=== PATIENT | female | born 1930 | race Caucasian/White ===

== ENCOUNTER 2017-08-28 09:22 | Emergency (ER) | payer OTHER ==
[~2017-08-28] VITALS: Ht 162.6 cm; Wt 84.6 kg
[~2017-08-28 09:22] MED LIST: ACET-1138 PO; ASPEC81 PO; LEVO25TA5 PO; LSN/10125 PO; METO25TA3 PO; MULT-506 PO; OMEP20TA14 PO; OXYSR10 PO; RXC5 PO
[2017-08-28 09:26] VITALS: TEMP 36.9; Ht 162.6 cm; Wt 84.6 kg
[2017-08-28] MEDS ORDERED: MoRPHine SULFATE 2 MG/ML CARP IV STA (09:39)
[2017-08-28 10:17] LABS: BASO % 0.5 %; BASO ABS # 0.04 K/uL (0-0.2); COMPLETE YES; EOS % 1.5 %; HEMATOCRIT 37.1 % (37-47); IG% 0.1 %; LYMPH % 19.8 %; LYMPH ABS # 1.48 K/uL (1.2-3.4); MEAN CELL VOLUME 87.7 fL (80-100); MEAN CORPUSCULAR HEMOGLOBIN 30.7 pg (25-34); MEAN PLATELET VOLUME 11.4 fL (7.4-10.4); MONO % 4.3 %; NEUT % 73.8 %; PLATELET COUNT 183 K/uL (130-400); RED BLOOD COUNT 4.23 M/uL (4.2-5.4); WHITE BLOOD COUNT 7.48 K/uL (4.8-10.8)
[2017-08-28 10:27] LABS: PROTHROMBIN TIME (PATIENT) 10.3 SECONDS (9.0-12.0)
[2017-08-28 10:35] LABS: BUN/CREATININE RATIO 23.8 (10-20); CREATININE 1.18 mg/dl (0.60-1.20); POTASSIUM 3.9 mmol/L (3.5-5.1)
[2017-08-28 10:46] LABS: MANUAL MICROSCOPIC REQUIRED? YES; URINE APPEARANCE CLOUDY (CLEAR); URINE BILIRUBIN NEG (NEG); URINE COLOR YELLOW; URINE NITRITE POS (NEG); URINE PH 8.5 (4.5-7.5); UROBILINOGEN NEG (NEG)
[2017-08-28 10:47] LABS: REVIEW REQ? NO; SULFASALICYLIC ACID POS (NEG)
[2017-08-28 10:49] LABS: URINE BACTERIA 2+ (NEG); URINE RBC 0-4 /hpf (0-4)
--- NOTE | 2017-08-28 10:51 | DIAGNOSTIC IMAGING REPORT ---
L-SPINE MIN 4 VIEWS ROUTINE HISTORY: Trauma eval for fx COMPARISON: None. FINDINGS: There is no fracture. Moderate scoliosis. Considerable degenerative disc change throughout the entire lumbar region. IMPRESSION: Severe degenerative change. Scoliosis. No acute compression deformity. The above report was generated using voice recognition software. It may contain grammatical, syntax or spelling errors. Electronically signed by: Berry Kinney M.D. 08/28/2017 10:49 AM Dictated Date/Time: 08/28/2017 10:48 AM
[2017-08-28] MEDS ORDERED: SULFAMETHOXAZOLE/TRIMETHOPRIM DS 800/160MG TAB PO STA (10:53)
--- NOTE | 2017-08-28 10:53 | DIAGNOSTIC IMAGING REPORT ---
PELVIS 1 OR 2 VIEW ROUTINE CLINICAL HISTORY: eval for fx trauma COMPARISON: None. DISCUSSION: Moderate generalized degenerative change throughout the pelvis and hips. No acute bony abnormality. No evidence for acetabular protrusion. There is no evidence for soft tissue swelling. IMPRESSION: Degenerative change. No acute abnormality. The above report was generated using voice recognition software. It may contain grammatical, syntax or spelling errors. Electronically signed by: Berry Kinney M.D. 08/28/2017 10:51 AM Dictated Date/Time: 08/28/2017 10:49 AM
[2017-08-28] MEDS ORDERED: ONDANSETRON INJ 2 MG/ML 2 ML VIAL IV STA (10:58)
[2017-08-28 11:06] VITALS: PULSE 65; O2SAT 98
[2017-08-28 11:17] VITALS: BP 139/56
[2017-08-28] MEDS ORDERED: SULF800T23 PO (11:37)
[2017-08-28] MEDS ORDERED: OXYC1TAB3 PO (11:37)
--- NOTE | 2017-08-28 16:59 | EMERGENCY ROOM VISIT NOTE ---
History Report prepared by Buddy: Willy Russ Under the Supervision of: Dr. Harish Patel M.D. First contact with patient: 09:33 Chief Complaint: LEG PAIN,LEG INJURY Stated Complaint: LEG PAIN History of Present Illness The patient is an 86 year old female who presents to the Emergency Room with complaints of bilateral hip pain that began 1 week ago. She rates her pain an 8/ 10 in severity. She has a past medical history of arthritis. For the past week, the patient has been having this bilateral hip pain with lower back pain and bilateral buttocks pain. Intermittently, she will experience shooting pain down both of her legs into her calves. This morning, she had another episode of this shooting sensation. However, she was unable to walk after this secondary to her pain, so she called the ambulance. She denies any history of a diagnosed problem with her discs. She denies any fevers, chest pain, shortness of breath, vomiting, abdominal pain, weakness, numbness, or incontinence with her bladder or bowel. She usually takes Tramadol for her pain which tends to help, however she did not take any today. Source of History: patient Onset: 1 week ago Position: other (bilateral hip) Symptom Intensity: 8/10 Quality: ache Timing: constant Associated Symptoms: No fevers, No chest pain, No SOB, No vomiting, No abdominal pain, No urinary symptoms, No weakness, No numbness Note: She is unable to walk secondary to her pain. She is having bilateral buttocks pain as well. Review of Systems See HPI for pertinent positives & negatives. A total of 10 systems reviewed and were otherwise negative. Past Medical & Surgical Medical Problems: (1) CKD (chronic kidney disease) stage 3, GFR 30-59 ml/min (2) Diabetes mellitus type II, controlled (3) Dyslipidemia (4) GERD (gastroesophageal reflux disease) (5) History of pacemaker (6) HTN (hypertension) (7) Hypothyroidism (8) Moderate aortic stenosis (9) Right knee DJD (10) Third degree AV block Surgical Problems: (1) H/O cataract removal with insertion of prosthetic lens (2) History of appendectomy (3) Hx of total knee arthroplasty Family History Omitted secondary to the patient's age. Social History Smoking Status: Former Smoker Smokeless Tobacco Use: No Drug Use: none Occupation Status: retired Current/Historical Medications Scheduled Acetaminophen (Tylenol Extra Strength), 1,000 MG PO Q8H Aspirin (Aspirin EC Low Dose), 81 MG PO BID Hctz/Lisinopril (Lisinopril/Hctz 10/12.5 Mg), 1 TAB PO PM Levothyroxine Sodium (Levothyroxine Sodium), 25 MCG PO QAM Metoprolol Succinate (Toprol Xl), 25 MG PO HS Multivitamin (Multivitamin), 1 TAB PO QAM Omeprazole Magnesium (Prilosec Otc), 20 MG PO DAILY Sulfa/Trimethoprim (Bactrim Ds 800MG/160MG), 1 TAB PO BID Scheduled PRN Oxycodone Ir (Roxicodone Ir), 2.5 MG PO Q4H PRN for Pain Allergies Coded Allergies: No Known Allergies (Verified , 08/28/17) Physical Exam Vital Signs Date Time Temp Pulse Resp B/P (MAP) Pulse Ox O2 Delivery O2 Flow Rate FiO2 08/28/17 11:17 139/56 08/28/17 11:06 65 18 104/45 98 Room Air 08/28/17 09:26 36.9 66 18 130/81 93 Room Air Physical Exam Constitutional: Vital signs reviewed. Eyes: Pupils are equal round reactive to light. Conjunctiva are noninjected. ENT: Pharynx is clear without erythema or exudate. Mucous membranes are moist. Neck supple without meningeal signs. Respiratory: Clear to auscultation bilaterally. Breath sounds are equal bilaterally. Cardiovascular: Regular rate and rhythm. No rubs or gallops. GI: Soft, nondistended and nontender. Bowel sounds are present. Musculoskeletal: No peripheral edema. No lower extremity tenderness. Minimal bilateral hip tenderness. No redness, swelling, or increased warmth. Positive straight leg raise to the right leg at 30 degrees. Integumentary: No cyanosis. Neurological: The patient is awake and alert. No focal deficits. Normal motor and sensation to the bilateral lower extremities. Psychiatric: Normal affect. Medical Decision & Procedures ER Provider Diagnostic Interpretation: Radiology results as stated below per my review and the radiologist's interpretation: PELVIS 1 OR 2 VIEW ROUTINE CLINICAL HISTORY: eval for fx trauma COMPARISON: None. DISCUSSION: Moderate generalized degenerative change throughout the pelvis and hips. No acute bony abnormality. No evidence for acetabular protrusion. There is no evidence for soft tissue swelling. IMPRESSION: Degenerative change. No acute abnormality. The above report was generated using voice recognition software. It may contain grammatical, syntax or spelling errors. Electronically signed by: Berry Kinney M.D. 08/28/2017 10:51 AM Dictated Date/Time: 08/28/2017 10:49 AM L-SPINE MIN 4 VIEWS ROUTINE HISTORY: Trauma eval for fx COMPARISON: None. FINDINGS: There is no fracture. Moderate scoliosis. Considerable degenerative disc change throughout the entire lumbar region. IMPRESSION: Severe degenerative change. Scoliosis. No acute compression deformity. The above report was generated using voice recognition software. It may contain grammatical, syntax or spelling errors. Electronically signed by: Berry Kinney M.D. 08/28/2017 10:49 AM Dictated Date/Time: 08/28/2017 10:48 AM Laboratory Results 08/28/17 10:05 Red Blood Count 4.23, Mean Corpuscular Volume 87.7, Mean Corpuscular Hemoglobin 30.7, Mean Corpuscular Hemoglobin Concent 35.0, Mean Platelet Volume 11.4, Neutrophils (%) (Auto) 73.8, Lymphocytes (%) (Auto) 19.8, Monocytes (%) (Auto) 4.3, Eosinophils (%) (Auto) 1.5, Basophils (%) (Auto) 0.5, Neutrophils # (Auto) 5.52, Lymphocytes # (Auto) 1.48, Monocytes # (Auto) 0.32, Eosinophils # (Auto) 0.11, Basophils # (Auto) 0.04 08/28/17 10:05 Test 08/28/17 10:05 08/28/17 10:30 White Blood Count 7.48 K/uL (4.8-10.8) Red Blood Count 4.23 M/uL (4.2-5.4) Hemoglobin 13.0 g/dL (12.0-16.0) Hematocrit 37.1 % (37-47) Mean Corpuscular Volume 87.7 fL (80-100) Mean Corpuscular Hemoglobin 30.7 pg (25-34) Mean Corpuscular Hemoglobin Concent 35.0 g/dl (32-36) Platelet Count 183 K/uL (130-400) Mean Platelet Volume 11.4 fL (7.4-10.4) Neutrophils (%) (Auto) 73.8 % Lymphocytes (%) (Auto) 19.8 % Monocytes (%) (Auto) 4.3 % Eosinophils (%) (Auto) 1.5 % Basophils (%) (Auto) 0.5 % Neutrophils # (Auto) 5.52 K/uL (1.4-6.5) Lymphocytes # (Auto) 1.48 K/uL (1.2-3.4) Monocytes # (Auto) 0.32 K/uL (0.11-0.59) Eosinophils # (Auto) 0.11 K/uL (0-0.5) Basophils # (Auto) 0.04 K/uL (0-0.2) RDW Standard Deviation 41.8 fL (36.4-46.3) RDW Coefficient of Variation 13.0 % (11.5-14.5) Immature Granulocyte % (Auto) 0.1 % Immature Granulocyte # (Auto) 0.01 K/uL (0.00-0.02) Prothrombin Time 10.3 SECONDS (9.0-12.0) Prothromb Time International Ratio 1.0 (0.9-1.1) Activated Partial Thromboplast Time 25.3 SECONDS (21.0-31.0) Partial Thromboplastin Ratio 1.0 Anion Gap 6.0 mmol/L (3-11) Est Creatinine Clear Calc Drug Dose 37.4 ml/min Estimated GFR () 49.0 Estimated GFR (Non- 42.3 BUN/Creatinine Ratio 23.8 (10-20) Calcium Level 9.0 mg/dl (8.5-10.1) Urine Color YELLOW Urine Appearance CLOUDY (CLEAR) Urine pH 8.5 (4.5-7.5) Urine Specific [place] 1.010 (1.000-1.030) Urine Protein 1+ (NEG) Urine Glucose (UA) NEG (NEG) Urine Ketones NEG (NEG) Urine Occult Blood TRACE (NEG) Urine Nitrite POS (NEG) Urine Bilirubin NEG (NEG) Urine Urobilinogen NEG (NEG) Urine Leukocyte Esterase LARGE (NEG) Urine RBC 0-4 /hpf (0-4) Urine WBC 10-30 /hpf (0-5) Urine Epithelial Cells 0-5 /lpf (0-5) Urine Other Crystals TALC (NONE PRSENT) Urine Bacteria 2+ (NEG) Laboratory results as reviewed by me. Medications Administered Medications (Trade) Dose Ordered Sig/Indu Route Start Time Stop Time Status Last Admin Dose Admin Morphine Sulfate (MoRPHine SULFATE INJ) 2 mg NOW STAT IV 08/28/17 09:39 08/28/17 09:41 DC 08/28/17 10:10 2 MG Trimethoprim/ Sulfamethoxazole (Septra Ds 800/ 160MG Tab) 1 tab NOW STAT PO 08/28/17 10:53 08/28/17 10:54 DC 08/28/17 11:04 1 TAB Ondansetron HCl (Zofran Inj) 4 mg NOW STAT IV 08/28/17 10:58 08/28/17 10:59 DC 08/28/17 11:04 4 MG ED Course 0933: The patient was evaluated in room A2. A complete history and physical exam was performed. 0939: Ordered Morphine Sulfate 2 mg IV 1053: Ordered Trimethoprim/Sulfamethoxazole 1 tab PO 1057: I reassessed the patient at this time. We discussed her test results. She is feeling better, however she is now nauseated. 1058: Ordered Zofran Inj 4 mg IV 1124: The patient is able to ambulate without difficulty and is feeling much better. I discussed the rest of her results with her and return instructions. She will be taking half of an Oxycodone instead of her Tramadol, which I told her to stop taking. We discussed the risks of taking this medication as well. I discussed with the ER pharmacist the patient's Bactrim and Brian Inhibitors. She has normal renal function and a normal potassium level. The pharmacist states that she is not at risk for hyperkalemia. 1230: I spoke with the patient's daughter at this time. She confirmed that she did not tell the tech that the patient was on Oxycodone/OxyContin. 1235: Upon reevaluation, the patient appeared to have improvement of her symptoms. I discussed tonight's findings with her. She verbalized agreement of the treatment plan. She was discharged home. Medical Decision This is an 86-year-old female who presents with bilateral hip and buttock pain rating down her legs. Differential diagnosis includes lumbar disc disease, radiculopathy, spinal stenosis, compression fracture, pelvic fracture, strain. I did perform a limited focused review of portions of the patient's old chart on the electronic medical record. The patient has had no recent pertinent visits to this hospital. I did evaluate the patient as noted above. Patient is presenting with lower back pain radiating into her hips and buttocks and down to her calves. She does not have any swelling to suggest a DVT. Her symptoms are bilateral. She does have a positive straight leg raise on the right side which she states is worse than the left. Her symptoms seem most consistent with radiculopathy. IV access was established. I did treat the patient with 2 mg of morphine IV and Zofran IV. I did order and personally review the patient's x-rays as described above. She does have significant degenerative changes. No fractures are noted. I did order and review the patient's blood work as noted in the electronic medical record. Kidney function and potassium are normal. Her white blood cell count is not elevated. I did order a urinalysis which does show signs of infection. She was treated with Bactrim. I did reassess patient. I did discuss the test results with the patient and her daughter. She is feeling better at this time. She does feel well enough for discharge home. She was advised follow up with her doctor for further evaluation and referral for possible physical therapy. She was told to stop her tramadol and given a prescription for oxycodone. I did review side effects and addiction potential of oxycodone with her. She was also given a prescription for Bactrim for her UTI. She was given return instructions as outlined below. [place] Drug Monitoring Program Search Results: patient reviewed within database, no issues identified Drug Monitoring Findings: No other prescriptions except for her Tramadol from June of this year. Medication Reconcilliation Current Medication List: was personally reviewed by me Blood Pressure Screening Patient's blood pressure: Elevated blood pressure Blood pressure disposition: Referred to PCP Impression Primary Impression: Lumbar radiculopathy Additional Impression: UTI (urinary tract infection) Scribe Attestation The scribe's documentation has been prepared under my direct and personally reviewed by me in its entirety. I confirm that the note above accurately reflects all work, treatment, procedures, and medical decision making performed by me. Departure Information Dispostion Home / Self-Care Prescriptions Oxycodone Ir (Roxicodone Ir) 5 Mg Tab 2.5 MG PO Q4H Y for Pain, #10 TAB Prov: Harish Patel M.D. 08/28/17 Sulfa/Trimethoprim (Bactrim Ds 800MG/160MG) Tab 1 TAB PO BID, #14 TAB Prov: Harish Patel M.D. 08/28/17 Referrals No Doctor, Assigned (PCP) Forms HOME CARE DOCUMENTATION FORM, IMPORTANT VISIT INFORMATION Patient Instructions Back Pain - [facility], [facility] Additional Instructions You have been examined and treated today on an emergency basis only. This is not a substitute for, or an effort to provide, complete comprehensive medical care. It is impossible to recognize and treat all injuries or illnesses in a single emergency department visit. It is therefore important that you follow up closely with your physician. Call as soon as possible for an appointment. Return for worsening symptoms or if you develop fever, vomiting, abdominal pain , loss of control of your bowel or bladder, numbness or weakness to your legs, numbness to your private area, difficulty urinating, or any other concerning symptoms. Stop tramadol. Take oxycodone instead. Problem Qualifiers Additional Impression: UTI (urinary tract infection) Urinary tract infection type: acute cystitis Hematuria presence: with hematuria Qualified Codes: N30.01 - Acute cystitis with hematuria
[2017-08-29] MEDS ORDERED: SULF800T23 PO (20:25)
[2017-08-29] MEDS ORDERED: OXYC1TAB3 PO (20:25)
[2017-08-29] MEDS ORDERED: ASPI81TA28 PO (20:25)
[2017-08-29] MEDS ORDERED: LSN5 PO (20:28)
[2017-08-29] MEDS ORDERED: HYDR25TA4 PO (20:28)
== END 2017-08-28 12:30 | disposition home or self-care (01) ==
LOC: EDBD 09:22 → C.EDA 09:24
DX: M54.16 Radiculopathy, lumbar region (principal); N39.0 Urinary tract infection, site not specified; I12.9 Hypertensive chronic kidney disease with stage 1 through stage 4 chronic kidney disease, or unspecified chronic kidney disease; N18.3 Chronic kidney disease, stage 3 (moderate); E11.22 Type 2 diabetes mellitus with diabetic chronic kidney disease; Z87.891 Personal history of nicotine dependence; E03.9 Hypothyroidism, unspecified

== ENCOUNTER 2017-08-29 18:41 | Inpatient (IN) | payer OTHER, MEDICARE ==
[~2017-08-29] VITALS: Ht 162.6 cm; Wt 82.1 kg
[~2017-08-29 18:41] MED LIST changes: +OXYC1TAB3 PO; -OXYSR10 PO; -RXC5 PO; +SULF800T23 PO
[2017-08-29] MEDS ORDERED: ACETAMINOPHEN 500 MG TAB PO STA (19:01)
[2017-08-29] MEDS ORDERED: OXYCODONE HCL IR 5 MG TAB (IMMEDIATE RELEASE) PO STA (19:01)
--- NOTE | 2017-08-29 19:21 | EMERGENCY ROOM VISIT NOTE ---
History Report prepared by Buddy: Adolfo Torres Under the Supervision of: Dr. Andrew Felix M.D. First contact with patient: 18:43 Chief Complaint: BACK PAIN Stated Complaint: BACK PAIN History of Present Illness The patient is a 86 year old W F with a past medical history of bilateral knee surgeries, pace maker, kidney disease, DM, hypothyroidism, HTN, lumbar radiculopathy, and recent UTI, who presents to the ED brought in by EMS with constant back pain for 2 days [facility]. Positive for lower back pain. She currently rates her pain a 6/10 in severity. Negative for shortness of breath, chest pain , leg pain, leg numbness, leg weakness. The patient notes visiting the ED yesterday for similar symptoms. She notes the pain has worsened this morning and describes it as an "achy and burning" pain to her lower back. She also notes taking her pain medications today, which have provided mild relief. She regularly uses a walker to ambulate, though she has not been able to use the walker since last evening. She is currently taking antibiotics for her UTI. She reports that she has not urinated at all today. She states that she has taken her other medications as prescribed. She denies any prior surgeries to her back. Source of History: patient Onset: 2 days [facility] Position: back (lower) Quality: other ("achy and burning") Timing: constant Modifying Factors (Relieving): other (pain medications have provided mild relief) Associated Symptoms: + back pain (lower ), No chest pain, No SOB, No weakness (leg), No numbness (leg) Note: She denies leg pain. Review of Systems See HPI for pertinent positives and negatives. A total of ten systems were reviewed and were otherwise negative. Past Medical & Surgical Medical Problems: (1) CKD (chronic kidney disease) stage 3, GFR 30-59 ml/min (2) Diabetes mellitus type II, controlled (3) Dyslipidemia (4) GERD (gastroesophageal reflux disease) (5) History of pacemaker (6) HTN (hypertension) (7) Hypothyroidism (8) Moderate aortic stenosis (9) Right knee DJD (10) Third degree AV block Surgical Problems: (1) H/O cataract removal with insertion of prosthetic lens (2) History of appendectomy (3) Hx of total knee arthroplasty Family History No pertinent family history reported. Social History Smoking Status: Never Smoker Drug Use: none Occupation Status: retired Current/Historical Medications Scheduled Aspirin (Aspirin Ec), 81 MG PO DAILY Hydrochlorothiazide (Hctz), 25 MG PO 3XWK Levothyroxine Sodium (Levothyroxine Sodium), 25 MCG PO QAM Lisinopril (Lisinopril), 5 MG PO DAILY Metoprolol Succinate (Toprol Xl), 25 MG PO HS Multivitamin (Multivitamin), 1 TAB PO QAM Omeprazole Magnesium (Prilosec Otc), 20 MG PO DAILY Sulfa/Trimethoprim (Bactrim Ds 800MG/160MG), 1 TAB PO BID Scheduled PRN Oxycodone Immediate Rel Tab (Roxicodone Ir), 2.5 MG PO Q4H PRN for Pain Allergies Coded Allergies: No Known Allergies (Verified , 08/29/17) Physical Exam Vital Signs Date Time Temp Pulse Resp B/P (MAP) Pulse Ox O2 Delivery O2 Flow Rate FiO2 08/29/17 20:21 74 16 108/61 97 Room Air 08/29/17 18:47 37.0 93 16 119/65 96 Room Air Physical Exam GENERAL: Awake, alert, well-appearing, NAD HENT: Normocephalic, atraumatic. EYES: Normal conjunctiva. Sclera non-icteric. NECK: Supple. No nuchal rigidity. FROM. CHEST: Device in left chest wall RESPIRATORY: CTAB, no rhonchi, wheezing, crackles CARDIAC: RRR, no MRG ABDOMEN: Soft, NTND, BS+ MSK: No chest wall TTP, no LE edema. Midline paraspinal lumbar TTP without erythema or calor; no rashes noted. Patient has cool bilateral LE with neuro intact distally to SP/DP/Tib nerves. NEURO: GCS 15, CN 2-12 intact, moves all 4s on command SKIN: No rash or jaundice noted. Medical Decision & Procedures ER Provider Diagnostic Interpretation: Radiology results as stated below per my review and radiologist interpretation: L-SPINE MIN 4 VIEWS ROUTINE CLINICAL HISTORY: Back pain. COMPARISON: Lumbar spine radiographs August 28, 2017. FINDINGS: Pacer leads are partially imaged. There is mild levoscoliosis of the lumbar spine. Note is made of 5 mm of anterolisthesis of L4 and L5. There is slight retrolisthesis of L1 on L2 and L2 on L3. There is marked multilevel disc space narrowing with osteophytosis and vacuum disc phenomenon. There is severe multilevel facet arthrosis. Extensive vascular calcification of the abdominal aorta is noted. IMPRESSION: 1. No acute lumbar spine fracture. 2. Severe multilevel degenerative disc disease and facet arthrosis of the lumbar spine. 3. Mild levoscoliosis of the lumbar spine. Electronically signed by: Luis Childress M.D. 08/29/2017 8:10 PM Dictated Date/Time: 08/29/2017 8:07 PM Laboratory Results 08/29/17 19:20 Red Blood Count 3.86, Mean Corpuscular Volume 88.6, Mean Corpuscular Hemoglobin 30.6, Mean Corpuscular Hemoglobin Concent 34.5, Mean Platelet Volume 11.3, Neutrophils (%) (Auto) 78.7, Lymphocytes (%) (Auto) 12.7, Monocytes (%) (Auto) 4.8, Eosinophils (%) (Auto) 3.4, Basophils (%) (Auto) 0.1, Neutrophils # (Auto) 7.35, Lymphocytes # (Auto) 1.19, Monocytes # (Auto) 0.45, Eosinophils # (Auto) 0.32, Basophils # (Auto) 0.01 08/29/17 19:20 Test 08/29/17 19:08 08/29/17 19:20 Urine Color DK YELLOW Urine Appearance TURBID (CLEAR) Urine pH 5.0 (4.5-7.5) Urine Specific [place] 1.020 (1.000-1.030) Urine Protein NEG (NEG) Urine Glucose (UA) NEG (NEG) Urine Ketones TRACE (NEG) Urine Occult Blood TRACE (NEG) Urine Nitrite NEG (NEG) Urine Bilirubin NEG (NEG) Urine Urobilinogen NEG (NEG) Urine Leukocyte Esterase LARGE (NEG) Urine WBC (Auto) >30 /hpf (0-5) Urine RBC (Auto) 0-4 /hpf (0-4) Urine Hyaline Casts (Auto) 0 /lpf (0-5) Urine Epithelial Cells (Auto) >30 /lpf (0-5) Urine Bacteria (Auto) NEG (NEG) White Blood Count 9.35 K/uL (4.8-10.8) Red Blood Count 3.86 M/uL (4.2-5.4) Hemoglobin 11.8 g/dL (12.0-16.0) Hematocrit 34.2 % (37-47) Mean Corpuscular Volume 88.6 fL (80-100) Mean Corpuscular Hemoglobin 30.6 pg (25-34) Mean Corpuscular Hemoglobin Concent 34.5 g/dl (32-36) Platelet Count 166 K/uL (130-400) Mean Platelet Volume 11.3 fL (7.4-10.4) Neutrophils (%) (Auto) 78.7 % Lymphocytes (%) (Auto) 12.7 % Monocytes (%) (Auto) 4.8 % Eosinophils (%) (Auto) 3.4 % Basophils (%) (Auto) 0.1 % Neutrophils # (Auto) 7.35 K/uL (1.4-6.5) Lymphocytes # (Auto) 1.19 K/uL (1.2-3.4) Monocytes # (Auto) 0.45 K/uL (0.11-0.59) Eosinophils # (Auto) 0.32 K/uL (0-0.5) Basophils # (Auto) 0.01 K/uL (0-0.2) RDW Standard Deviation 43.8 fL (36.4-46.3) RDW Coefficient of Variation 13.5 % (11.5-14.5) Immature Granulocyte % (Auto) 0.3 % Immature Granulocyte # (Auto) 0.03 K/uL (0.00-0.02) Prothrombin Time 10.8 SECONDS (9.0-12.0) Prothromb Time International Ratio 1.0 (0.9-1.1) Activated Partial Thromboplast Time 27.1 SECONDS (21.0-31.0) Partial Thromboplastin Ratio 1.0 Anion Gap 10.0 mmol/L (3-11) Est Creatinine Clear Calc Drug Dose 18.7 ml/min Estimated GFR () 22.6 Estimated GFR (Non- 19.5 BUN/Creatinine Ratio 17.6 (10-20) Calcium Level 8.8 mg/dl (8.5-10.1) Laboratory results reviewed by me Medications Administered Medications (Trade) Dose Ordered Sig/Indu Route Start Time Stop Time Status Last Admin Dose Admin Acetaminophen (Tylenol Tab) 1,000 mg NOW STAT PO 08/29/17 19:01 08/29/17 19:03 DC 08/29/17 19:01 1,000 MG Oxycodone HCl (Roxicodone Immediate Rel Tab) 2.5 mg NOW STAT PO 08/29/17 19:01 08/29/17 19:03 DC 08/29/17 19:01 2.5 MG Sodium Chloride 500 ml @ 500 mls/hr Q1H STAT IV 08/29/17 19:50 08/29/17 20:49 DC 08/29/17 20:21 500 MLS/HR ED Course 3: The patient was evaluated in room C6. A complete history and physical exam was performed. 2104: I reassessed the patient at this time. She is feeling better and resting comfortably. 2101: I spoke with Dr. Buckner, hospitalist. We discussed the patients case. The patient will be evaluated by the [facility] for further management. Medical Decision The patient is a 86 year old W F with a past medical history of bilateral knee surgeries, pace maker, kidney disease, DM, hypothyroidism, HTN, lumbar radiculopathy, and recent UTI, who presents to the ED brought in by EMS with constant back pain for 2 days [facility]. Differential diagnosis: Etiologies such as musculoskeletal, disc herniation, fracture, aortic disease, metastatic disease, cord compression, discitis, infection, renal colic, gastrointestinal, acute exacerbation of chronic back pain, sciatica, cauda equina, as well as others were entertained. Patient was seen and evaluated the bedside. Patient did have her recent complain of some low back pain. Patient was seen yesterday did have blood work completed which showed that she had a likely UTI and radicular type pain. Patient does have some pain in the lower lumbar spine. Patient has no deficits distally. Patient does have cool extremities but is neuro intact. She does have dopplerable pulses. Patient doesn't did have blood work completed along with urinalysis and pain control. Upon reassessment the patient's pain improved. Patient's lumbar spine films did show some degenerative change. Patient does not sat worsening kidney function today a baseline creatinine of 1.1 today is greater than 2. Patient was given IV fluids. I did discuss the case with the hospitalist. They agreed to further evaluate and admit the patient under likely observation. We did discuss that this may be related to Bactrim and that this may change. The prior urine culture did show Proteus. Medication Reconcilliation Current Medication List: was personally reviewed by me Blood Pressure Screening Patient's blood pressure: Normal blood pressure Consults Time Called: 2057 Consulting Physician: Dr. Buckner, hospitalist Returned Call: [address] Buckner, hospitalist. We discussed the patients case. The patient will be evaluated by the [facility] for further management. Impression Primary Impression: ANGELICA (acute kidney injury) Additional Impression: UTI (urinary tract infection) Scribe Attestation The scribe's documentation has been prepared under my direction and personally reviewed by me in its entirety. I confirm that the note above accurately reflects all work, treatment, procedures, and medical decision making performed by me. Departure Information Dispostion Being Evaluated By Hospitalist Referrals No Doctor, Assigned (PCP) Patient Instructions My [facility] Problem Qualifiers Additional Impression: UTI (urinary tract infection) Urinary tract infection type: acute cystitis Hematuria presence: without hematuria Qualified Codes: N30.00 - Acute cystitis without hematuria
[2017-08-29 19:29] LABS: BASO % 0.1 %; BASO ABS # 0.01 K/uL (0-0.2); COMPLETE YES; EOS % 3.4 %; HEMATOCRIT 34.2 % (37-47); IG% 0.3 %; LYMPH % 12.7 %; LYMPH ABS # 1.19 K/uL (1.2-3.4); MEAN CELL VOLUME 88.6 fL (80-100); MEAN CORPUSCULAR HEMOGLOBIN 30.6 pg (25-34); MEAN CORPUSCULAR HGB CONC 34.5 g/dl (32-36); MEAN PLATELET VOLUME 11.3 fL (7.4-10.4); MONO % 4.8 %; NEUT % 78.7 %; PLATELET COUNT 166 K/uL (130-400); RED BLOOD COUNT 3.86 M/uL (4.2-5.4); WHITE BLOOD COUNT 9.35 K/uL (4.8-10.8)
[2017-08-29 19:38] LABS: PROTHROMBIN TIME (PATIENT) 10.8 SECONDS (9.0-12.0)
[2017-08-29 19:48] LABS: BUN/CREATININE RATIO 17.6 (10-20); CALCIUM 8.8 mg/dl (8.5-10.1); CREATININE 2.24 mg/dl (0.60-1.20); POTASSIUM 3.8 mmol/L (3.5-5.1)
[2017-08-29] MEDS ORDERED: SODIUM CHLORIDE 0.9% 500ML 500 ML IV STA (19:50)
[2017-08-29 20:12] LABS: URINE APPEARANCE TURBID (CLEAR); URINE BILIRUBIN NEG (NEG); URINE COLOR DK YELLOW; URINE NITRITE NEG (NEG); UROBILINOGEN NEG (NEG)
--- NOTE | 2017-08-29 20:12 | DIAGNOSTIC IMAGING REPORT ---
L-SPINE MIN 4 VIEWS ROUTINE CLINICAL HISTORY: Back pain. COMPARISON: Lumbar spine radiographs August 28, 2017. FINDINGS: Pacer leads are partially imaged. There is mild levoscoliosis of the lumbar spine. Note is made of 5 mm of anterolisthesis of L4 and L5. There is slight retrolisthesis of L1 on L2 and L2 on L3. There is marked multilevel disc space narrowing with osteophytosis and vacuum disc phenomenon. There is severe multilevel facet arthrosis. Extensive vascular calcification of the abdominal aorta is noted. IMPRESSION: 1. No acute lumbar spine fracture. 2. Severe multilevel degenerative disc disease and facet arthrosis of the lumbar spine. 3. Mild levoscoliosis of the lumbar spine. Electronically signed by: Luis Childress M.D. 08/29/2017 8:10 PM Dictated Date/Time: 08/29/2017 8:07 PM
[2017-08-29 20:13] LABS: URINE EPITHELIAL CELL AUTO >30 /lpf (0-5)
[2017-08-29 20:14] LABS: MANUAL MICROSCOPIC REQUIRED? NO; REVIEW REQ? NO
[2017-08-29] MEDS ORDERED: SULF800T23 PO (20:25)
[2017-08-29] MEDS ORDERED: OXYC1TAB3 PO (20:25)
[2017-08-29] MEDS ORDERED: ASPI81TA28 PO (20:25)
[2017-08-29] MEDS ORDERED: LSN5 PO (20:28)
[2017-08-29] MEDS ORDERED: HYDR25TA4 PO (20:28)
--- NOTE | 2017-08-29 21:04 | History and Physical ---
History & Physical Date & Time of Service: Aug 29, 2017 at 21:03 Chief Complaint: Back Pain Primary Care Physician: Gabbie Fernandes M.D. History of Present Illness Source: patient Patient is an 86 yr female with PMH of diet controlled DM II, CKD III, HLP, 3rd degree Heart block S/P pacemaker, Arthritis, Hypothyroidism and other problems presents with history of lower back pain and dysuria. Patient was in ED yesterday and was diagnosed to have lumbar radiculopathy and UTI and prescribed Bactrim and was discharged home. She states back pain has not improved with pain medications and she has been having trouble with ambulation secondary to pain. Reports lower back pain, 4/10 intensity, radiates intermittently down B/L legs, sharp intermittent pain which worsens with ambulation. Denies any history of fall, trauma, weakness, numbness or tingling. Also reports having dysuria since 2 weeks duration. Denies any chest pain, SOB, dizziness, fever, chills, nausea, vomiting, abd pain, dizziness, diarrhea. Past Medical/Surgical History Medical Problems: (1) CKD (chronic kidney disease) stage 3, GFR 30-59 ml/min Status: Chronic (2) Diabetes mellitus type II, controlled Permanent Comment: diet controlled Status: Chronic (3) Dyslipidemia Status: Chronic (4) GERD (gastroesophageal reflux disease) Status: Chronic (5) History of pacemaker Status: Chronic (6) HTN (hypertension) Status: Chronic (7) Hypothyroidism Status: Chronic (8) Moderate aortic stenosis Status: Chronic (9) Third degree AV block Permanent Comment: s/p pacemaker placement 2011 Status: Chronic Surgical Problems: (1) H/O cataract removal with insertion of prosthetic lens Status: Resolved (2) History of appendectomy Status: Resolved (3) Hx of total knee arthroplasty Permanent Comment: L TKA 2009 Status: Resolved Family History Reviewed, Not relevant Social History Smoking Status: Former Smoker Alcohol Use: socially Drug Use: none Housing status: lives with family Occupational Status: retired Immunizations History of Influenza Vaccine: No History of Tetanus Vaccine?: Yes Tetanus Immunization Date: Dec 01, 1998 History of Pneumococcal: No History of Hepatitis B Vaccine: No Multi-Drug Resistant Organisms History of MDRO: No Allergies Coded Allergies: No Known Allergies (Verified , 08/29/17) Home Medications Scheduled Aspirin (Aspirin Ec), 81 MG PO DAILY Hydrochlorothiazide (Hctz), 25 MG PO 3XWK Levothyroxine Sodium (Levothyroxine Sodium), 25 MCG PO QAM Lisinopril (Lisinopril), 5 MG PO DAILY Metoprolol Succinate (Toprol Xl), 25 MG PO HS Multivitamin (Multivitamin), 1 TAB PO QAM Omeprazole Magnesium (Prilosec Otc), 20 MG PO DAILY Sulfa/Trimethoprim (Bactrim Ds 800MG/160MG), 1 TAB PO BID Scheduled PRN Oxycodone Immediate Rel Tab (Roxicodone Ir), 2.5 MG PO Q4H PRN for Pain Review of Systems See HPI for pertinent positives & negatives. A total of 10 systems reviewed and were otherwise negative. Physical Exam Vital Signs Date Time Temp Pulse Resp B/P (MAP) Pulse Ox O2 Delivery O2 Flow Rate FiO2 08/29/17 20:21 74 16 108/61 97 Room Air 08/29/17 18:47 37.0 93 16 119/65 96 Room Air General Appearance: WD/WN, no apparent distress Head: normocephalic, atraumatic Eyes: normal inspection, PERRL, EOMI, sclerae normal ENT: normal ENT inspection, + pertinent finding (Decreased hearing) Neck: supple, trachea midline Respiratory/Chest: chest non-tender, lungs clear, normal breath sounds, no respiratory distress, no accessory muscle use Cardiovascular: regular rate, rhythm, + systolic murmur, + pertinent finding (1 -2+ b/l edema) Abdomen/GI: normal bowel sounds, non tender, soft Back: normal inspection, + paravertebral tenderness (Lumbar region) Extremities/Musculoskelatal: normal inspection, + pertinent finding (1-2+ b/l edema, chronic venous stasis changes ) Neurologic/Psych: research nutritionist II-XII nml as tested, no motor/sensory deficits, alert, normal mood/affect, oriented x 3 Skin: normal color, warm/dry Diagnostics Laboratory Results Results Past 24 Hours Test 08/29/17 19:08 08/29/17 19:20 Range/Units Urine Color DK YELLOW Urine Appearance TURBID CLEAR Urine pH 5.0 4.5-7.5 Urine Specific [place] 1.020 1.000-1.030 Urine Protein NEG NEG Urine Glucose (UA) NEG NEG Urine Ketones TRACE NEG Urine Occult Blood TRACE NEG Urine Nitrite NEG NEG Urine Bilirubin NEG NEG Urine Urobilinogen NEG NEG Urine Leukocyte Esterase LARGE NEG Urine WBC (Auto) >30 0-5 /hpf Urine RBC (Auto) 0-4 0-4 /hpf Urine Hyaline Casts (Auto) 0 0-5 /lpf Urine Epithelial Cells (Auto) >30 0-5 /lpf Urine Bacteria (Auto) NEG NEG White Blood Count 9.35 4.8-10.8 K/uL Red Blood Count 3.86 4.2-5.4 M/uL Hemoglobin 11.8 12.0-16.0 g/dL Hematocrit 34.2 37-47 % Mean Corpuscular Volume 88.6 80-100 fL Mean Corpuscular Hemoglobin 30.6 25-34 pg Mean Corpuscular Hemoglobin Concent 34.5 32-36 g/dl Platelet Count 166 130-400 K/uL Mean Platelet Volume 11.3 7.4-10.4 fL Neutrophils (%) (Auto) 78.7 % Lymphocytes (%) (Auto) 12.7 % Monocytes (%) (Auto) 4.8 % Eosinophils (%) (Auto) 3.4 % Basophils (%) (Auto) 0.1 % Neutrophils # (Auto) 7.35 1.4-6.5 K/uL Lymphocytes # (Auto) 1.19 1.2-3.4 K/uL Monocytes # (Auto) 0.45 0.11-0.59 K/uL Eosinophils # (Auto) 0.32 0-0.5 K/uL Basophils # (Auto) 0.01 0-0.2 K/uL RDW Standard Deviation 43.8 36.4-46.3 fL RDW Coefficient of Variation 13.5 11.5-14.5 % Immature Granulocyte % (Auto) 0.3 % Immature Granulocyte # (Auto) 0.03 0.00-0.02 K/uL Prothrombin Time 10.8 9.0-12.0 SECONDS Prothromb Time International Ratio 1.0 0.9-1.1 Activated Partial Thromboplast Time 27.1 21.0-31.0 SECONDS Partial Thromboplastin Ratio 1.0 Sodium Level 134 136-145 mmol/L Potassium Level 3.8 3.5-5.1 mmol/L Chloride Level 98 98-107 mmol/L Carbon Dioxide Level 25 21-32 mmol/L Anion Gap 10.0 3-11 mmol/L Blood Urea Nitrogen 39 7-18 mg/dl Creatinine 2.24 0.60-1.20 mg/dl Est Creatinine Clear Calc Drug Dose 18.7 ml/min Estimated GFR () 22.6 Estimated GFR (Non- 19.5 BUN/Creatinine Ratio 17.6 10-20 Random Glucose 105 70-99 mg/dl Calcium Level 8.8 8.5-10.1 mg/dl Diagnostic Radiology X ray L-spine: 1. No acute lumbar spine fracture. 2. Severe multilevel degenerative disc disease and facet arthrosis of the lumbar spine. 3. Mild levoscoliosis of the lumbar spine. Impression Assessment and Plan Lumbar Radiculopathy: Likely secondary to degenerative disc disease X ray: No acute lumbar spine fracture. Pain control PT/OT ANGELICA on CKD III: Likely secondary to Bactrim use IV fluids Hold Lisinopril, diuretics Monitor Renal function Cr:2.24 (Baseline Cr: 1.0) Avoids nephrotoxic agents UTI: Urine Culture from08/28/17: pending DC Bactrim Start on IV ceftriaxone Blood cultures obtained DM II: Diet Controlled Last A1C on 06/12/17:6.5 Update A1C ISS, Monitor BS H/O 3rd degree Heart block S/P pacemaker Hypothyroidism Continue levothyroxine DVT Px: Heparin SQ Code Status: Full Code Disposition: To be determined instructional services specialist consulted PT/OT
[2017-08-29] MEDS ORDERED: ONDANSETRON INJ 2 MG/ML 2 ML VIAL IV PRN (22:30)
[2017-08-29] MEDS ORDERED: MoRPHine SULFATE 2 MG/ML CARP IV PRN (22:30)
[2017-08-29] MEDS ORDERED: ACETAMINOPHEN 325 MG TAB PO PRN (22:30)
[2017-08-29 23:47] VITALS: BP 148/77; PULSE 53; TEMP 36.9; O2SAT 96
[2017-08-30 00:22] VITALS: BP 116/65; PULSE 73; TEMP 36.6; O2SAT 97; Ht 162.6 cm; Wt 82.1 kg
[2017-08-30] MEDS ORDERED: GLUCOSE 10 TABS/TUBE PO PRN (01:00)
[2017-08-30] MEDS ORDERED: GLUCOSE 40% GEL 15 GM TUBE PO PRN (01:00)
[2017-08-30] MEDS ORDERED: GLUCAGON FOR INJ 1 MG VIAL SQ PRN (01:00)
[2017-08-30] MEDS ORDERED: DEXTROSE 50% 50 ML SYR IV PRN (01:00)
[2017-08-30] MEDS: SODIUM CHLORIDE 0.9% 1000ML 1,000 ML IV SCH ×3 (02:35→23:34)
[2017-08-30] MEDS: CEFTRIAXONE SOD INJ 1 GM in DEXTROSE 5% ADD-VANTAGE 50ML 50 ML IV SCH (02:36)
[2017-08-30] MEDS: HEPARIN SOD 5000 UNIT/0.5 ML CARP SQ SCH ×3 (06:02→20:43)
[2017-08-30 06:03] LABS: HEMATOCRIT 34.1 % (37-47); MEAN CELL VOLUME 88.8 fL (80-100); MEAN CORPUSCULAR HEMOGLOBIN 29.2 pg (25-34); MEAN CORPUSCULAR HGB CONC 32.8 g/dl (32-36); MEAN PLATELET VOLUME 11.2 fL (7.4-10.4); PLATELET COUNT 154 K/uL (130-400); RED BLOOD COUNT 3.84 M/uL (4.2-5.4); WHITE BLOOD COUNT 6.66 K/uL (4.8-10.8)
[2017-08-30] MEDS: LEVOTHYROXINE 25 MCG TAB PO SCH (06:03)
[2017-08-30 06:30] LABS: BUN/CREATININE RATIO 19.2 (10-20); CALCIUM 8.6 mg/dl (8.5-10.1); CREATININE 1.83 mg/dl (0.60-1.20); MAGNESIUM 1.9 mg/dl (1.8-2.4); POTASSIUM 3.6 mmol/L (3.5-5.1)
[2017-08-30 06:40] LABS: THYROID STIMULATING HORMONE 1.59 uIu/ml (0.300-4.500)
[2017-08-30 07:22] VITALS: BP 124/74; PULSE 79; TEMP 36.8; O2SAT 95
[2017-08-30] MEDS ORDERED: PNEUMOCOCCAL POLYSACCHARIDES 25 MCG/0.5 ML VIAL/SYR IM. ONE (08:00)
[2017-08-30] MEDS ORDERED: PNEUMOCOCCAL ADMINISTRATION CHARGE ONE (08:00)
[2017-08-30] MEDS: INSULIN ASPART 100 UNITS/ML 3 ML PEN SC SCH ×4 (08:31→20:32)
[2017-08-30] MEDS: ASPIRIN 81 MG ECTAB PO SCH (08:33)
[2017-08-30] MEDS: PANTOprazole SOD 40 MG TAB PO SCH (08:33)
[2017-08-30 14:59] VITALS: BP 115/63; PULSE 88; TEMP 36.4; O2SAT 97
--- NOTE | 2017-08-30 18:58 | Progress Note ---
Medicine Progress Note Date & Time of Visit: Aug 30, 2017 at ~ 16:00 . Subjective Back pain improved. No fever. No chest pain. No cough or SOB. No nausea, vomiting, diarrhea. No dysuria or hematuria. . Objective Last 8 Hrs Date Time Temp Pulse Resp B/P (MAP) Pulse Ox O2 Delivery O2 Flow Rate FiO2 08/30/17 14:59 36.4 88 20 115/63 (80) 97 Physical Exam: General- sitting in chair, no distress Lungs- clear Heart- RRR Abdomen- + BS, soft, nontender Back- right CVA tenderness Extremities- no pretibial edema or calf tenderness Skin- warm & dry Neuro- alert . Laboratory Results: Last 24 Hours Test 08/29/17 19:08 08/29/17 19:20 08/30/17 05:35 08/30/17 07:26 Urine Color DK YELLOW Urine Appearance TURBID Urine pH 5.0 Urine Specific [place] 1.020 Urine Protein NEG Urine Glucose (UA) NEG Urine Ketones TRACE Urine Occult Blood TRACE Urine Nitrite NEG Urine Bilirubin NEG Urine Urobilinogen NEG Urine Leukocyte Esterase LARGE Urine WBC (Auto) >30 /hpf Urine RBC (Auto) 0-4 /hpf Urine Hyaline Casts (Auto) 0 /lpf Urine Epithelial Cells (Auto) >30 /lpf Urine Bacteria (Auto) NEG White Blood Count 9.35 K/uL 6.66 K/uL Red Blood Count 3.86 M/uL 3.84 M/uL Hemoglobin 11.8 g/dL 11.2 g/dL Hematocrit 34.2 % 34.1 % Mean Corpuscular Volume 88.6 fL 88.8 fL Mean Corpuscular Hemoglobin 30.6 pg 29.2 pg Mean Corpuscular Hemoglobin Concent 34.5 g/dl 32.8 g/dl Platelet Count 166 K/uL 154 K/uL Mean Platelet Volume 11.3 fL 11.2 fL Neutrophils (%) (Auto) 78.7 % Lymphocytes (%) (Auto) 12.7 % Monocytes (%) (Auto) 4.8 % Eosinophils (%) (Auto) 3.4 % Basophils (%) (Auto) 0.1 % Neutrophils # (Auto) 7.35 K/uL Lymphocytes # (Auto) 1.19 K/uL Monocytes # (Auto) 0.45 K/uL Eosinophils # (Auto) 0.32 K/uL Basophils # (Auto) 0.01 K/uL RDW Standard Deviation 43.8 fL 43.1 fL RDW Coefficient of Variation 13.5 % 13.3 % Immature Granulocyte % (Auto) 0.3 % Immature Granulocyte # (Auto) 0.03 K/uL Prothrombin Time 10.8 SECONDS Prothromb Time International Ratio 1.0 Activated Partial Thromboplast Time 27.1 SECONDS Partial Thromboplastin Ratio 1.0 Sodium Level 134 mmol/L 136 mmol/L Potassium Level 3.8 mmol/L 3.6 mmol/L Chloride Level 98 mmol/L 103 mmol/L Carbon Dioxide Level 25 mmol/L 27 mmol/L Anion Gap 10.0 mmol/L 6.0 mmol/L Blood Urea Nitrogen 39 mg/dl 35 mg/dl Creatinine 2.24 mg/dl 1.83 mg/dl Est Creatinine Clear Calc Drug Dose 18.7 ml/min 23.7 ml/min Estimated GFR () 22.6 28.9 Estimated GFR (Non- 19.5 24.9 BUN/Creatinine Ratio 17.6 19.2 Random Glucose 105 mg/dl 99 mg/dl Calcium Level 8.8 mg/dl 8.6 mg/dl Magnesium Level 1.9 mg/dl Thyroid Stimulating Hormone (TSH) 1.590 uIu/ml Bedside Glucose 98 mg/dl Test 08/30/17 11:31 08/30/17 16:38 Bedside Glucose 138 mg/dl 243 mg/dl Date/Time Source Procedure Growth Status 08/29/17 23:20 Blood Blood Culture Pending Received 08/29/17 23:13 Blood Blood Culture Pending Received Assessment & Plan URINARY TRACT INFECTION Urine culture from ED 08/28 growing Proteus mirabilis. Continue ceftriaxone. Check renal US. BACK PAIN Plain films of lumbar spine demonstrated degenerative disease. Back pain possibly related to UTI. Improved. May need further evaluation if symptoms worsen. HYPERTENSION Holding HCTZ + lisinopril due to ANGELICA. Continue metoprolol. CKD III / ANGELICA Serum creatinine 1.18 08/28 --> 2.24 08/29. Rising creatinine possible secondary to TMP / sulfa. Holding HCTZ + lisinopril. Creatinine today = 1.83. Check renal US. DM TYPE 2 Usually diet-controlled. Check Hgb A1C. FBS this morning = 98. Insulin coverage PRN. HYPOTHYROIDISM Continue levothyroxine. VTE PROPHYLAXIS SQ heparin. Ambulate. DISPOSITION Expected discharge to home. Family Medicine follow-up with Dr. Fernandes. . Current Inpatient Medications: Current Inpatient Medications Medications (Trade) Dose Ordered Sig/Indu Route Start Time Stop Time Status Last Admin Dose Admin Heparin Sodium (Porcine) (Heparin Sq 5000 Unit/0.5ml) 5,000 unit Q8H SQ 08/30/17 06:00 09/29/17 05:59 08/30/17 14:03 5,000 UNIT Acetaminophen (Tylenol Tab) 650 mg Q4H PRN PO 08/29/17 22:30 09/28/17 22:29 Ondansetron HCl (Zofran Inj) 4 mg Q6H PRN IV 08/29/17 22:30 09/28/17 22:29 08/30/17 08:41 4 MG Morphine Sulfate (MoRPHine SULFATE INJ) 2 mg Q6H PRN IV 08/29/17 22:30 09/12/17 22:29 Sodium Chloride 1,000 ml @ 100 mls/hr Q10H IV 08/29/17 22:30 09/28/17 22:29 08/30/17 12:26 100 MLS/HR Ceftriaxone Sodium 1 gm/ Dextrose 50 ml @ 100 mls/hr Q24H IV 08/30/17 02:00 09/04/17 01:59 08/30/17 02:36 100 MLS/HR Aspirin (Ecotrin Tab) 81 mg DAILY PO 08/30/17 08:00 09/29/17 08:59 08/30/17 08:33 81 MG Levothyroxine Sodium (Synthroid Tab) 25 mcg DAILYBB PO 08/30/17 06:30 09/29/17 06:29 08/30/17 06:03 25 MCG Metoprolol Succinate (Toprol Xl Tab) 25 mg HS PO 08/30/17 21:00 09/29/17 20:59 Oxycodone HCl (Roxicodone Immediate Rel Tab) 2.5 mg Q4H PRN PO 08/29/17 22:45 09/12/17 22:44 Pantoprazole Sodium (Protonix Tab) 40 mg DAILY PO 08/30/17 08:00 09/29/17 08:59 08/30/17 08:33 40 MG Insulin Aspart (novoLOG ASPART) SLIDING SCALE If C... ACHS SC 08/30/17 06:30 09/29/17 06:29 08/30/17 17:48 5 UNITS Glucose (Glucose 40% Gel) 15-30 GRAMS 15 GRAMS... UD PRN PO 08/30/17 01:00 09/29/17 00:59 Glucose (Glucose Chew Tab) 4-8 Tablets 4 Tabl... UD PRN PO 08/30/17 01:00 09/29/17 00:59 Dextrose (Dextrose 50% 50ML Syringe) 25-50ML OF 50% DW IV FOR... UD PRN IV 08/30/17 01:00 09/29/17 00:59 Glucagon (Glucagon Inj) 1 mg UD PRN SQ 08/30/17 01:00 09/29/17 00:59
[2017-08-30] MEDS: OXYCODONE HCL IR 5 MG TAB (IMMEDIATE RELEASE) PO PRN (20:40)
[2017-08-30] MEDS: METOPROLOL SUCC 25MG EXT REL TAB PO SCH (20:42)
[2017-08-31 00:18] VITALS: BP 131/78; PULSE 78; TEMP 37; O2SAT 92
[2017-08-31] MEDS: CEFTRIAXONE SOD INJ 1 GM in DEXTROSE 5% ADD-VANTAGE 50ML 50 ML IV SCH (02:04)
[2017-08-31] MEDS ORDERED: NURSING DECISION MEDICATION ORDER SCH (03:30)
[2017-08-31] MEDS ORDERED: MICONAZOLE NITRATE POWDER 43 GM EXT PRN (04:00)
[2017-08-31] MEDS: HEPARIN SOD 5000 UNIT/0.5 ML CARP SQ SCH ×3 (05:23→21:12)
[2017-08-31] MEDS: LEVOTHYROXINE 25 MCG TAB PO SCH (05:26)
[2017-08-31 07:02] VITALS: BP 169/80; PULSE 82; TEMP 37.3; O2SAT 95
[2017-08-31 07:31] LABS: BUN/CREATININE RATIO 15.1 (10-20); CALCIUM 8.3 mg/dl (8.5-10.1); CREATININE 1.49 mg/dl (0.60-1.20); MAGNESIUM 1.9 mg/dl (1.8-2.4)
[2017-08-31 07:37] LABS: ESTIMATED AVERAGE GLUCOSE 146 mg/dl; HA1C FLAG Normal (Normal)
[2017-08-31] MEDS: ASPIRIN 81 MG ECTAB PO SCH (08:03)
[2017-08-31] MEDS: PANTOprazole SOD 40 MG TAB PO SCH (08:03)
[2017-08-31] MEDS: INSULIN ASPART 100 UNITS/ML 3 ML PEN SC SCH ×4 (08:05→21:00)
--- NOTE | 2017-08-31 08:06 | DIAGNOSTIC IMAGING REPORT ---
(RENAL)RETROPERITON COMP HISTORY: Renal insufficiency UTI, acute kidney injury COMPARISON: None. FINDINGS: Right kidney: Maximum dimension 9.3 cm. Mild cortical scarring. No evidence for hydronephrosis. Normal corticomedullary differentiation and cortical thickness. Left kidney: Maximum dimension 9.2 cm. No evidence for hydronephrosis. Mild cortical scarring. Normal corticomedullary differentiation and cortical thickness. Bladder: No bladder wall thickening. The bilateral ureteral jets were identified. IMPRESSION: Mild cortical scarring bilaterally. No evidence for hydronephrosis or obstructive change. The above report was generated using voice recognition software. It may contain grammatical, syntax or spelling errors. Electronically signed by: Berry Kinney M.D. 08/31/2017 8:05 AM Dictated Date/Time: 08/31/2017 8:02 AM
[2017-08-31] MEDS: SODIUM CHLORIDE 0.9% 1000ML 1,000 ML IV SCH (09:47)
[2017-08-31] MEDS ORDERED: SODIUM CHLORIDE 0.9% 1000ML 1,000 ML IV SCH (12:15)
[2017-08-31 15:41] VITALS: BP 150/81; PULSE 70; TEMP 36.6; O2SAT 98
--- NOTE | 2017-08-31 20:19 | Progress Note ---
Medicine Progress Note Date & Time of Visit: Aug 31, 2017 at 11:50 . Subjective Better. Back / flank pain improved. No dysuria or gross hematuria. No fever. No chest pain. No cough or SOB. No diarrhea. . Objective Last 8 Hrs Date Time Temp Pulse Resp B/P (MAP) Pulse Ox O2 Delivery O2 Flow Rate FiO2 08/31/17 15:41 36.6 70 18 150/81 (104) 98 Room Air 08/31/17 15:40 Room Air Physical Exam: General- sitting in chair, no distress Lungs- clear Heart- RRR Abdomen- + BS, soft, nontender Back- right CVA tenderness improved Extremities- no pretibial edema or calf tenderness Skin- warm & dry Neuro- alert . Laboratory Results: Last 24 Hours Test 08/31/17 05:41 08/31/17 08:01 08/31/17 11:41 08/31/17 16:32 Sodium Level 138 mmol/L Potassium Level 4.0 mmol/L Chloride Level 106 mmol/L Carbon Dioxide Level 24 mmol/L Anion Gap 8.0 mmol/L Blood Urea Nitrogen 23 mg/dl Creatinine 1.49 mg/dl Est Creatinine Clear Calc Drug Dose 28.6 ml/min Estimated GFR () 36.7 Estimated GFR (Non- 31.7 BUN/Creatinine Ratio 15.1 Random Glucose 106 mg/dl Calcium Level 8.3 mg/dl Magnesium Level 1.9 mg/dl Bedside Glucose 108 mg/dl 131 mg/dl 191 mg/dl Test 08/31/17 19:51 Bedside Glucose 101 mg/dl Assessment & Plan URINARY TRACT INFECTION Urine culture from ED 08/28 growing Proteus mirabilis. Continue ceftriaxone. Renal US negative for calculi / hydronephrosis. BACK PAIN Plain films of lumbar spine demonstrated degenerative disease. Back pain possibly related to UTI. Improved. HYPERTENSION Holding HCTZ + lisinopril due to ANGELICA. Continue metoprolol. CKD III / ANGELICA Serum creatinine 1.18 08/28 --> 2.24 08/29. Rising creatinine possible secondary to TMP / sulfa. Holding HCTZ + lisinopril. Renal US - no obstruction. Creatinine today = 1.49. DM TYPE 2 Usually diet-controlled. Check Hgb A1C. FBS this morning = 108. Insulin coverage PRN. HYPOTHYROIDISM Continue levothyroxine. VTE PROPHYLAXIS SQ heparin. Ambulate. DISPOSITION Expected discharge to home. Family Medicine follow-up with Dr. Fernandes. Daughter visiting and given update. . Current Inpatient Medications: Current Inpatient Medications Medications (Trade) Dose Ordered Sig/Indu Route Start Time Stop Time Status Last Admin Dose Admin Heparin Sodium (Porcine) (Heparin Sq 5000 Unit/0.5ml) 5,000 unit Q8H SQ 08/30/17 06:00 09/29/17 05:59 08/31/17 13:49 5,000 UNIT Acetaminophen (Tylenol Tab) 650 mg Q4H PRN PO 08/29/17 22:30 09/28/17 22:29 Ondansetron HCl (Zofran Inj) 4 mg Q6H PRN IV 08/29/17 22:30 09/28/17 22:29 08/30/17 08:41 4 MG Morphine Sulfate (MoRPHine SULFATE INJ) 2 mg Q6H PRN IV 08/29/17 22:30 09/12/17 22:29 08/31/17 05:24 2 MG Ceftriaxone Sodium 1 gm/ Dextrose 50 ml @ 100 mls/hr Q24H IV 08/30/17 02:00 09/04/17 01:59 08/31/17 02:04 100 MLS/HR Aspirin (Ecotrin Tab) 81 mg DAILY PO 08/30/17 08:00 09/29/17 08:59 08/31/17 08:03 81 MG Levothyroxine Sodium (Synthroid Tab) 25 mcg DAILYBB PO 08/30/17 06:30 09/29/17 06:29 08/31/17 05:26 25 MCG Metoprolol Succinate (Toprol Xl Tab) 25 mg HS PO 08/30/17 21:00 09/29/17 20:59 08/30/17 20:42 25 MG Oxycodone HCl (Roxicodone Immediate Rel Tab) 2.5 mg Q4H PRN PO 08/29/17 22:45 09/12/17 22:44 08/30/17 20:40 2.5 MG Pantoprazole Sodium (Protonix Tab) 40 mg DAILY PO 08/30/17 08:00 09/29/17 08:59 08/31/17 08:03 40 MG Insulin Aspart (novoLOG ASPART) SLIDING SCALE If C... ACHS SC 08/30/17 06:30 09/29/17 06:29 08/31/17 17:43 5 UNITS Glucose (Glucose 40% Gel) 15-30 GRAMS 15 GRAMS... UD PRN PO 08/30/17 01:00 09/29/17 00:59 Glucose (Glucose Chew Tab) 4-8 Tablets 4 Tabl... UD PRN PO 08/30/17 01:00 09/29/17 00:59 Dextrose (Dextrose 50% 50ML Syringe) 25-50ML OF 50% DW IV FOR... UD PRN IV 08/30/17 01:00 09/29/17 00:59 Glucagon (Glucagon Inj) 1 mg UD PRN SQ 08/30/17 01:00 09/29/17 00:59 Miconazole Nitrate (Desenex Powder) 1 appln PRN PRN EXT 08/31/17 04:00 09/30/17 03:59 Sodium Chloride 1,000 ml @ 50 mls/hr Q20H IV 08/31/17 12:15 09/01/17 08:14 08/31/17 12:31 50 MLS/HR
[2017-08-31] MEDS: METOPROLOL SUCC 25MG EXT REL TAB PO SCH (21:10)
[2017-08-31 23:05] VITALS: BP 153/84; PULSE 84; TEMP 36.7; O2SAT 97
[2017-09-01] MEDS: CEFTRIAXONE SOD INJ 1 GM in DEXTROSE 5% ADD-VANTAGE 50ML 50 ML IV SCH (02:03)
[2017-09-01 06:14] LABS: BUN/CREATININE RATIO 16.3 (10-20); CALCIUM 8.8 mg/dl (8.5-10.1); CREATININE 1.34 mg/dl (0.60-1.20); MAGNESIUM 1.8 mg/dl (1.8-2.4)
[2017-09-01] MEDS: LEVOTHYROXINE 25 MCG TAB PO SCH (06:28)
[2017-09-01] MEDS: HEPARIN SOD 5000 UNIT/0.5 ML CARP SQ SCH ×2 (06:33→12:21)
[2017-09-01 07:15] VITALS: BP_SYST 174; BP_SYST 179; BP_DIAS 104; BP_DIAS 92; PULSE 83; TEMP 37.1; O2SAT 95
[2017-09-01] MEDS: ASPIRIN 81 MG ECTAB PO SCH (08:45)
[2017-09-01] MEDS: PANTOprazole SOD 40 MG TAB PO SCH (08:45)
[2017-09-01] MEDS: OXYCODONE HCL IR 5 MG TAB (IMMEDIATE RELEASE) PO PRN (08:45)
[2017-09-01] MEDS: INSULIN ASPART 100 UNITS/ML 3 ML PEN SC SCH ×2 (08:48→12:20)
--- NOTE | 2017-09-01 10:32 | Progress Note ---
Medicine Progress Note Date & Time of Visit: Sep 01, 2017 at 10:15 . Subjective Doing well. No fever, flank pain, dysuria. No nausea, vomiting, diarrhea. Ready to go home. . Objective Last 8 Hrs Date Time Temp Pulse Resp B/P (MAP) Pulse Ox O2 Delivery O2 Flow Rate FiO2 09/01/17 08:00 Room Air 09/01/17 07:15 37.1 83 22 174/92 (119) 95 Room Air 179/104 (129) Physical Exam: General- sitting in chair, no distress Lungs- clear Heart- RRR Abdomen- + BS, soft, nontender Back- no CVA tenderness Extremities- trace - 1+ pretibial edema; no calf tenderness Skin- warm & dry Neuro- alert . Laboratory Results: Last 24 Hours Test 08/31/17 11:41 08/31/17 16:32 08/31/17 19:51 09/01/17 05:14 Bedside Glucose 131 mg/dl 191 mg/dl 101 mg/dl Sodium Level 138 mmol/L Potassium Level 4.0 mmol/L Chloride Level 106 mmol/L Carbon Dioxide Level 27 mmol/L Anion Gap 5.0 mmol/L Blood Urea Nitrogen 22 mg/dl Creatinine 1.34 mg/dl Est Creatinine Clear Calc Drug Dose 31.8 ml/min Estimated GFR () 41.8 Estimated GFR (Non- 36.0 BUN/Creatinine Ratio 16.3 Random Glucose 114 mg/dl Calcium Level 8.8 mg/dl Magnesium Level 1.8 mg/dl Test 09/01/17 07:31 Bedside Glucose 119 mg/dl Assessment & Plan URINARY TRACT INFECTION Urine culture from ED 08/28 growing Proteus mirabilis. Stopped TMP / sulfa due to ANGELICA. Receiving ceftriaxone with improvement. Renal US negative for calculi / hydronephrosis. Transition to oral therapy with amoxicillin to complete course of therapy. BACK PAIN Plain films of lumbar spine demonstrated degenerative disease. Back pain possibly related to UTI. Seemed to have CVA tenderness that improved with antibiotic therapy. HYPERTENSION Held HCTZ + lisinopril due to ANGELICA. Creatinine improved. BP elevated this morning. Discharge on usual meds. CKD III / ANGELICA Serum creatinine 1.18 08/28 --> 2.24 08/29. Rising creatinine possible secondary to TMP / sulfa. Holding HCTZ + lisinopril. Renal US - no obstruction. Creatinine today = 1.34. DM TYPE 2 Usually diet-controlled. Check Hgb A1C. FBS this morning = 119. Insulin coverage PRN. HYPOTHYROIDISM Continue levothyroxine. VTE PROPHYLAXIS SQ heparin. Ambulating. DISPOSITION Discharge to home. Family Medicine follow-up with Dr. Fernandes. . Current Inpatient Medications: Current Inpatient Medications Medications (Trade) Dose Ordered Sig/Indu Route Start Time Stop Time Status Last Admin Dose Admin Heparin Sodium (Porcine) (Heparin Sq 5000 Unit/0.5ml) 5,000 unit Q8H SQ 08/30/17 06:00 09/29/17 05:59 09/01/17 06:33 5,000 UNIT Acetaminophen (Tylenol Tab) 650 mg Q4H PRN PO 08/29/17 22:30 09/28/17 22:29 Ondansetron HCl (Zofran Inj) 4 mg Q6H PRN IV 08/29/17 22:30 09/28/17 22:29 08/30/17 08:41 4 MG Morphine Sulfate (MoRPHine SULFATE INJ) 2 mg Q6H PRN IV 08/29/17 22:30 09/12/17 22:29 08/31/17 05:24 2 MG Ceftriaxone Sodium 1 gm/ Dextrose 50 ml @ 100 mls/hr Q24H IV 08/30/17 02:00 09/04/17 01:59 09/01/17 02:03 100 MLS/HR Aspirin (Ecotrin Tab) 81 mg DAILY PO 08/30/17 08:00 09/29/17 08:59 09/01/17 08:45 81 MG Levothyroxine Sodium (Synthroid Tab) 25 mcg DAILYBB PO 08/30/17 06:30 09/29/17 06:29 09/01/17 06:28 25 MCG Metoprolol Succinate (Toprol Xl Tab) 25 mg HS PO 08/30/17 21:00 09/29/17 20:59 08/31/17 21:10 25 MG Oxycodone HCl (Roxicodone Immediate Rel Tab) 2.5 mg Q4H PRN PO 08/29/17 22:45 09/12/17 22:44 09/01/17 08:45 2.5 MG Pantoprazole Sodium (Protonix Tab) 40 mg DAILY PO 08/30/17 08:00 09/29/17 08:59 09/01/17 08:45 40 MG Insulin Aspart (novoLOG ASPART) SLIDING SCALE If C... ACHS SC 08/30/17 06:30 09/29/17 06:29 09/01/17 08:48 1 UNITS Glucose (Glucose 40% Gel) 15-30 GRAMS 15 GRAMS... UD PRN PO 08/30/17 01:00 09/29/17 00:59 Glucose (Glucose Chew Tab) 4-8 Tablets 4 Tabl... UD PRN PO 08/30/17 01:00 09/29/17 00:59 Dextrose (Dextrose 50% 50ML Syringe) 25-50ML OF 50% DW IV FOR... UD PRN IV 08/30/17 01:00 09/29/17 00:59 Glucagon (Glucagon Inj) 1 mg UD PRN SQ 08/30/17 01:00 09/29/17 00:59 Miconazole Nitrate (Desenex Powder) 1 appln PRN PRN EXT 08/31/17 04:00 09/30/17 03:59 Lisinopril (Zestril Tab) 5 mg DAILY PO 09/02/17 08:00 10/02/17 07:59
[2017-09-01] MEDS ORDERED: AMX500 PO (10:42)
--- NOTE | 2017-09-01 10:47 | Discharge Instructions ---
Discharge Instructions Date of Service Sep 01, 2017. Admission Reason for Admission: kidney infection . Discharge Discharge Diagnosis / Problem: kidney infection Discharge Goals Goal(s): Decrease discomfort, Improve disease control Activity Recommendations Activity Limitations: resume your previous activity . Instructions / Follow-Up Instructions / Follow-Up APPOINTMENTS: FAMILY MEDICINE 09/07/2017 1:00 PM Gabbie Fernandes MD OTHER INSTRUCTIONS: Stop taking trimethoprim / sulfamethoxazole (Bactrim). It may be hurting your kidneys. New antibiotic for kidney infection is amoxicillin. Take 1 pill 3 times a day until gone. Prescription sent to [facility] in [place]. Do not take any pain medicines like ibuprofen (Advil or Motrin), naproxen (Aleve ), or other anti-inflammatory medications. They can damage your kidneys. OK to take Tylenol as directed on the bottle. Seek medical attention if you have: * temperature above 101 * chest pain or trouble breathing * abdominal pain, nausea, vomiting * diarrhea, dark stools or bloody stools * any unanswered questions or concerns Call 911 if symptoms are severe. Call if you have any questions or problems. My cell # is [phone]. You can also reach a [facility] hospitalist on duty at [facility] 24 hours a day by calling [phone]. Please take good care of yourself. Ramiro Castellon . Current Hospital Diet Patient's current hospital diet: AHA Diet (Heart Healthy), Diabetes Type 2 Diet Discharge Diet Recommended Diet: AHA Diet (Heart Healthy), Diabetes Type 2 Diet Pending Studies Studies pending at discharge: no Laboratory Results Hemoglobin A1c Test 08/30/17 05:35 Range/Units Estimated Average Glucose 146 mg/dl Hemoglobin A1c 6.7 H 4.5-5.6 % Medical Emergencies . Who to Call and When: Medical Emergencies: If at any time you feel your situation is an emergency, please call 911 immediately. . Non-Emergent Contact Non-Emergency issues call your: Primary Care Provider, Hospital Doctor . . "Provider Documentation" section prepared by Ramiro Castellon. . VTE Core Measure Inpt VTE Proph given/why not?: Unfractionated heparin SQ [place] Drug Monitoring Program Search Results: patient reviewed within database, no issues identified
--- NOTE | 2017-09-01 10:55 | Discharge Summary ---
Discharge Summary Date of Service Sep 01, 2017. Discharge Summary Admission Date: Aug 29, 2017 at 22:22 Discharge Date: Sep 01, 2017 Discharge Disposition: Home Principal Diagnosis: urinary tract infection (Proteus mirabilis) (present on admission) OTHER ACUTE DIAGNOSES: acute kidney injury . 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 Procedures: renal US IV meds IV fluids . Pending Studies/Follow-Up: Please check basic metabolic profile in clinic. . Medication Reconciliation New Medications: Amoxicillin (Amoxicillin) 500 Mg Cap 500 MG PO TID, #12 CAP Continued Medications: Aspirin (Aspirin Ec) 81 Mg Tab 81 MG PO DAILY Hydrochlorothiazide (Hctz) 25 Mg Tab 25 MG PO 3XWK, TAB TAKES MON, WED, & FRI. Levothyroxine Sodium (Levothyroxine Sodium) 25 Mcg Tab 25 MCG PO QAM Lisinopril (Lisinopril) 5 Mg Tab 5 MG PO DAILY Metoprolol Succinate (Toprol Xl) 25 Mg Tabcr 25 MG PO HS, #30 TAB Multivitamin (Multivitamin) Tab 1 TAB PO QAM, 0 Refills Omeprazole Magnesium (Prilosec Otc) 20 Mg Tab 20 MG PO DAILY, TAB 1/2 hour before breakfast Oxycodone Immediate Rel Tab (Roxicodone Ir) 5 Mg Tab 2.5 MG PO Q4H PRN for Pain, TAB Discontinued Medications: Sulfa/Trimethoprim (Bactrim Ds 800MG/160MG) Tab 1 TAB PO BID, #6 TAB STARTED 08/28/17 FOR 7 DAYS. Admission Information HPI (per Admitting provider): Patient is an 86 yr female with PMH of diet controlled DM II, CKD III, HLP, 3rd degree Heart block S/P pacemaker, Arthritis, Hypothyroidism and other problems presents with history of lower back pain and dysuria. Patient was in ED yesterday and was diagnosed to have lumbar radiculopathy and UTI and prescribed Bactrim and was discharged home. She states back pain has not improved with pain medications and she has been having trouble with ambulation secondary to pain. Reports lower back pain, 4/10 intensity, radiates intermittently down B/L legs, sharp intermittent pain which worsens with ambulation. Denies any history of fall, trauma, weakness, numbness or tingling. Also reports having dysuria since 2 weeks duration. Denies any chest pain, SOB, dizziness, fever, chills, nausea, vomiting, abd pain, dizziness, diarrhea. . Physical Exam (per Admitting): General Appearance: WD/WN, no apparent distress Head: normocephalic, atraumatic Eyes: normal inspection, PERRL, EOMI, sclerae normal ENT: normal ENT inspection, + pertinent finding (Decreased hearing) Neck: supple, trachea midline Respiratory/Chest: chest non-tender, lungs clear, normal breath sounds, no respiratory distress, no accessory muscle use Cardiovascular: regular rate, rhythm, + systolic murmur, + pertinent finding (1-2+ b/l edema) Abdomen/GI: normal bowel sounds, non tender, soft Back: normal inspection, + paravertebral tenderness (Lumbar region) Extremities/Musculoskelatal: normal inspection, + pertinent finding (1-2+ b/ l edema, chronic venous stasis changes ) Neurologic/Psych: air quality engineer II-XII nml as tested, no motor/sensory deficits, alert , normal mood/affect, oriented x 3 Skin: normal color, warm/dry Hospital Course URINARY TRACT INFECTION Seen in ED day prior to admission with back pain and urinary symptoms. Urine culture from ED grew Proteus mirabilis. Prescribed TMP / sulfa. Returned to ED with persistent flank pain, dysuria, ANGELICA. TMP / sulfa stopped due to ANGELICA. Renal US negative for calculi / hydronephrosis. Received ceftriaxone with improvement of flank pain and dysuria. Transition to oral therapy with amoxicillin to complete course of therapy. BACK PAIN Plain films of lumbar spine demonstrated degenerative disease. Back pain probably related to UTI. (Seemed to have CVA tenderness that improved with antibiotic therapy.) Advised to avoid NSAID's because of ANGELICA. HYPERTENSION Held HCTZ + lisinopril due to ANGELICA. Creatinine improved. BP elevated day of discharge Discharge on usual meds. CKD III / ANGELICA Serum creatinine 1.18 08/28 --> 2.24 08/29. Rising creatinine possible secondary to TMP / sulfa. Held HCTZ + lisinopril. Renal US - no obstruction. Creatinine day of discharge 1.34. Recheck in clinic. DM TYPE 2 Usually diet-controlled. Hgb A1C = 6.7. FBS day of discharge 119. HYPOTHYROIDISM Continue levothyroxine. VTE PROPHYLAXIS SQ heparin. Ambulating. DISPOSITION Discharged to home. Family Medicine follow-up with Dr. Fernandes. . Total time spent on discharge = 35 minutes. This includes examination of the patient, discharge planning, medication reconciliation, and communication with other providers. . Discharge Instructions Date of Service Sep 01, 2017. Admission Reason for Admission: kidney infection . Discharge Discharge Diagnosis / Problem: kidney infection Discharge Goals Goal(s): Decrease discomfort, Improve disease control Activity Recommendations Activity Limitations: resume your previous activity . Instructions / Follow-Up Instructions / Follow-Up APPOINTMENTS: FAMILY MEDICINE 09/07/2017 1:00 PM Gabbie Fernandes MD OTHER INSTRUCTIONS: Stop taking trimethoprim / sulfamethoxazole (Bactrim). It may be hurting your kidneys. New antibiotic for kidney infection is amoxicillin. Take 1 pill 3 times a day until gone. Prescription sent to [facility] in [place]. Do not take any pain medicines like ibuprofen (Advil or Motrin), naproxen (Aleve ), or other anti-inflammatory medications. They can damage your kidneys. OK to take Tylenol as directed on the bottle. Seek medical attention if you have: * temperature above 101 * chest pain or trouble breathing * abdominal pain, nausea, vomiting * diarrhea, dark stools or bloody stools * any unanswered questions or concerns Call [phone] if symptoms are severe. Call if you have any questions or problems. My cell # is [phone]. You can also reach a [facility] hospitalist on duty at [facility] 24 hours a day by calling [phone]. Please take good care of yourself. Ramiro Castellon . Current Hospital Diet Patient's current hospital diet: AHA Diet (Heart Healthy), Diabetes Type 2 Diet Discharge Diet Recommended Diet: AHA Diet (Heart Healthy), Diabetes Type 2 Diet Pending Studies Studies pending at discharge: no Laboratory Results Hemoglobin A1c Test 08/30/17 05:35 Range/Units Estimated Average Glucose 146 mg/dl Hemoglobin A1c 6.7 H 4.5-5.6 % Medical Emergencies . Who to Call and When: Medical Emergencies: If at any time you feel your situation is an emergency, please call 911 immediately. . Non-Emergent Contact Non-Emergency issues call your: Primary Care Provider, Hospital Doctor . . "Provider Documentation" section prepared by Ramiro Castellon. . VTE Core Measure Inpt VTE Proph given/why not?: Unfractionated heparin SQ [place] Drug Monitoring Program Search Results: patient reviewed within database, no issues identified .
[2017-09-01 12:34] VITALS: BP 179/104; PULSE 83; TEMP 37.1; O2SAT 95
[2017-09-02] MEDS ORDERED: LISINOPRIL 5 MG TAB PO SCH (08:00)
== END 2017-09-01 13:14 | disposition home or self-care (01) | DRG 690 ==
LOC: EDBD 18:41 → C.EDC 18:42 → C.4E 22:22 → ENRESERV 22:43
PROVIDERS: ADMIT Internal Medicine; ATTEND Hospitalist
DX: N39.0 Urinary tract infection, site not specified (principal); N17.9 Acute kidney failure, unspecified; B96.4 Proteus (mirabilis) (morganii) as the cause of diseases classified elsewhere; M51.16 Intervertebral disc disorders with radiculopathy, lumbar region; N18.3 Chronic kidney disease, stage 3 (moderate); E11.9 Type 2 diabetes mellitus without complications; I12.9 Hypertensive chronic kidney disease with stage 1 through stage 4 chronic kidney disease, or unspecified chronic kidney disease; E03.9 Hypothyroidism, unspecified; K21.9 Gastro-esophageal reflux disease without esophagitis; Z51.81 Encounter for therapeutic drug level monitoring; Z79.899 Other long term (current) drug therapy; Z79.82 Long term (current) use of aspirin; Z95.0 Presence of cardiac pacemaker; Z87.891 Personal history of nicotine dependence

== ENCOUNTER 2017-09-09 00:47 | Emergency (ER) | payer OTHER, MEDICARE ==
[~2017-09-09] VITALS: Ht 162.6 cm; Wt 85.4 kg
[~2017-09-09 00:47] MED LIST changes: -ACET-1138 PO; +AMX500 PO; -ASPEC81 PO; +ASPI81TA28 PO; +HYDR25TA4 PO; -LSN/10125 PO; +LSN5 PO; -SULF800T23 PO
[2017-09-09 00:50] VITALS: TEMP 36.6; Ht 162.6 cm; Wt 85.4 kg
--- NOTE | 2017-09-09 01:11 | EMERGENCY ROOM VISIT NOTE ---
History Report prepared by Buddy: Crescencio Du Under the Supervision of: Dr. Silvina Diaz D.O. First contact with patient: 00:59 Chief Complaint: HIP PAIN Stated Complaint: HIP PAIN History of Present Illness The patient is an 87 year old female who presents to the Emergency Room with complaints of worsening right hip pain over the last week. The patient states she has been having discomfort for a while now, but it did not worsen until a week ago. She reports she has a history of osteoarthritis and bilateral knee replacements. The patient notes she was able to walk around, with her walker, without difficulty until a few days ago. She notes she cannot move it as well as she used to. The patient's daughter states she put the patient to bed, and she would not stop moaning. The patient reports she became nauseous and vomited in the ambulance, but has not vomited any other time. She denies falling, any source of injury, chest pain, shortness of breath, and any other symptoms. EMR shows the patient was her on the and for similar symptoms and returned with acute renal failure the following day. It notes her pain medication was switched form Tramadol to oxycodone. The patient states since then, she has had intermittent pain. She denies back pain. She reports she typically takes one pill of oxycodone four times a day and was told to switch to 2 pills four times a day. The patient notes her first dose of 2 pills was about three hours ago. She states her discomfort went away after a few hours, and this is typical. The patient reports she is also experiencing abdominal pain that began after vomiting in the ambulance. Source of History: patient Onset: 1 week ago Position: other (left hip) Timing: worsening Associated Symptoms: + nausea (in ambulance here), + vomiting (in ambulance here), + abdominal pain (after vomiting), No chest pain, No SOB, No back pain Note: Associated symptoms: difficulty ambulating Denies: source of injury, falling, any other symptoms Review of Systems See HPI for pertinent positives & negatives. A total of 10 systems reviewed and were otherwise negative. Past Medical & Surgical Medical Problems: (1) CKD (chronic kidney disease) stage 3, GFR 30-59 ml/min (2) Diabetes mellitus type II, controlled (3) Dyslipidemia (4) GERD (gastroesophageal reflux disease) (5) History of pacemaker (6) HTN (hypertension) (7) Hypothyroidism (8) Moderate aortic stenosis (9) Right knee DJD (10) Third degree AV block Surgical Problems: (1) H/O cataract removal with insertion of prosthetic lens (2) History of appendectomy (3) Hx of total knee arthroplasty Family History Patient reports no known family medical history. Social History Smoking Status: Never Smoker Drug Use: none Housing Status: lives with family Occupation Status: retired Current/Historical Medications Scheduled Amoxicillin (Amoxil), 500 MG PO TID Aspirin (Aspirin Ec), 81 MG PO DAILY Hydrochlorothiazide (Hctz), 25 MG PO 3XWK Levothyroxine Sodium (Levothyroxine Sodium), 25 MCG PO QAM Lisinopril (Lisinopril), 2.5 MG PO DAILY Metoprolol Succinate (Toprol Xl), 25 MG PO HS Multivitamin (Multivitamin), 1 TAB PO QAM Omeprazole Magnesium (Prilosec Otc), 20 MG PO DAILY Oxycodone Immediate Rel Tab (Roxicodone Ir), 2 TAB PO QID Allergies Coded Allergies: No Known Allergies (Verified , 09/09/17) Physical Exam Vital Signs Date Time Temp Pulse Resp B/P (MAP) Pulse Ox O2 Delivery O2 Flow Rate FiO2 09/09/17 02:56 65 18 137/66 98 09/09/17 00:50 36.6 80 20 177/96 98 Room Air Physical Exam HEENT: Head - normocephalic and atraumatic Pupils are equal, round, and reactive to light. Extraocular eye muscles are intact, and sclera are anicteric. Nose - moist nasal mucosa without discharge. Mouth - moist buccal mucosa. Oropharynx is nonerythematous and there is no tonsillar exudate or edema noted. Neck: Supple; no JVD, nuchal rigidity, cervical lymphadenopathy. Heart: 5/6 systolic ejection murmur. Lungs: Clear to auscultation bilaterally with no wheezes, rales, or rhonchi. Abdomen: Soft, diffusely tender with palpation, nondistended, with good bowel sounds. There are no palpable pulsatile masses or hepatosplenomegaly. There is no guarding, rigidity, or rebound noted. Extremities: No evidence of cyanosis, clubbing, or edema. There are easily palpable peripheral pulses. Pain with palpation of right hip. Skin: warm and dry with good turgor and no rashes. Medical Decision & Procedures ER Provider Diagnostic Interpretation: CT results as stated below per my review and radiologist interpretation: CT RIGHT HIP: Noevidence of acute fracture or malalignment. Degenerative changes with joint space narrowing, sclerosis and small subchondral cysts. Heterotopic ossification around the right hip. Atherosclerotic calcifications Radiologist: Jomar Gibbs MD Study ready at 0224 and initial results transmitted at 0259. Laboratory Results 09/09/17 01:34 Red Blood Count 4.08, Mean Corpuscular Volume 88.5, Mean Corpuscular Hemoglobin 30.9, Mean Corpuscular Hemoglobin Concent 34.9, Mean Platelet Volume 10.4, Neutrophils (%) (Auto) 59.3, Lymphocytes (%) (Auto) 32.0, Monocytes (%) (Auto) 5.5, Eosinophils (%) (Auto) 1.9, Basophils (%) (Auto) 0.9, Neutrophils # (Auto) 4.80, Lymphocytes # (Auto) 2.58, Monocytes # (Auto) 0.44, Eosinophils # (Auto) 0.15, Basophils # (Auto) 0.07 09/09/17 01:34 Test 09/09/17 01:34 White Blood Count 8.07 K/uL (4.8-10.8) Red Blood Count 4.08 M/uL (4.2-5.4) Hemoglobin 12.6 g/dL (12.0-16.0) Hematocrit 36.1 % (37-47) Mean Corpuscular Volume 88.5 fL (80-100) Mean Corpuscular Hemoglobin 30.9 pg (25-34) Mean Corpuscular Hemoglobin Concent 34.9 g/dl (32-36) Platelet Count 203 K/uL (130-400) Mean Platelet Volume 10.4 fL (7.4-10.4) Neutrophils (%) (Auto) 59.3 % Lymphocytes (%) (Auto) 32.0 % Monocytes (%) (Auto) 5.5 % Eosinophils (%) (Auto) 1.9 % Basophils (%) (Auto) 0.9 % Neutrophils # (Auto) 4.80 K/uL (1.4-6.5) Lymphocytes # (Auto) 2.58 K/uL (1.2-3.4) Monocytes # (Auto) 0.44 K/uL (0.11-0.59) Eosinophils # (Auto) 0.15 K/uL (0-0.5) Basophils # (Auto) 0.07 K/uL (0-0.2) RDW Standard Deviation 42.8 fL (36.4-46.3) RDW Coefficient of Variation 13.2 % (11.5-14.5) Immature Granulocyte % (Auto) 0.4 % Immature Granulocyte # (Auto) 0.03 K/uL (0.00-0.02) Erythrocyte Sedimentation Rate 13 mm/hr (0-21) Anion Gap 5.0 mmol/L (3-11) Est Creatinine Clear Calc Drug Dose 37.2 ml/min Estimated GFR () 49.2 Estimated GFR (Non- 42.5 BUN/Creatinine Ratio 18.2 (10-20) Calcium Level 8.9 mg/dl (8.5-10.1) Total Bilirubin 0.3 mg/dl (0.2-1) Aspartate Amino Transf (AST/SGOT) 17 U/L (15-37) Alanine Aminotransferase (ALT/SGPT) 28 U/L (12-78) Alkaline Phosphatase 86 U/L (45-117) C-Reactive Protein 0.37 mg/dl (0-0.29) Total Protein 6.5 gm/dl (6.4-8.2) Albumin 3.5 gm/dl (3.4-5.0) Globulin 3.0 gm/dl (2.5-4.0) Albumin/Globulin Ratio 1.2 (0.9-2) Laboratory results per my review. Medications Administered Medications (Trade) Dose Ordered Sig/Indu Route Start Time Stop Time Status Last Admin Dose Admin Ondansetron HCl (Zofran Inj) 4 mg NOW STAT IV 09/09/17 01:23 09/09/17 01:25 DC 09/09/17 01:23 4 MG Procedure 0123: Ordered Ondansetron HCl 4mg IV ED Course 0048: Past medical records reviewed. The patient was evaluated in room B10 by the medical student under my supervision. A complete history and physical exam was performed. 0115: The patient was evaluated in room B10 by me. A complete history and physical examination were performed. Nursing notes and previous electronic medical records were reviewed. IV lock was established and labs were drawn as above. 0123: Ordered Ondansetron HCl 4mg IV. I reviewed the patient's previous films of her pelvis and lumbar spine. She went for CT scan of the right hip as described above. 0308: Upon reevaluation, the patient has had no recurrent pain. I discussed findings and results with the patient and her daughter. They verbalized agreement of the treatment plan. The patient was discharged home. Medical Decision The patient is an 87 year old female who presents to the ED with right hip pain. Differential diagnosis includes acute exacerbation of chronic right hip pain, occult hip fracture, septic joint, medication side affects. Lab results show: SED rate of 13, normal WBC, stable H&H, C-reactive protein of 0.37, glucose of 147, normal LFT, BUN of 21, creatinine of 1.1. This is an 87-year-old female patient presents to the emergency department with intractable right hip pain. The patient saw her PCP yesterday. They recommended that she increase her dose of oxycodone to 2 tabs every 4 hours. The patient just took the increased dose tonight at 10 PM. Upon arrival here in the emergency department, she was symptom-free. I suspect the nausea may have been secondary to the increased dose of oxycodone. I suggested the patient continue the increased dose of oxycodone for pain management and see if the nausea persists. If it does, the patient will need to follow-up with Dr. Fernandes his the PCP. If the pain becomes intractable again, they can return here to the ER. Medication Reconcilliation Current Medication List: was personally reviewed by me Blood Pressure Screening Patient's blood pressure: Normal blood pressure Blood pressure disposition: Did not require urgent referral Impression Primary Impression: Right hip pain Scribe Attestation The scribe's documentation has been prepared under my direction and personally reviewed by me in its entirety. I confirm that the note above accurately reflects all work, treatment, procedures, and medical decision making performed by me. Departure Information Dispostion Home / Self-Care Referrals Gabbie Fernandes M.D. (PCP) Forms HOME CARE DOCUMENTATION FORM, IMPORTANT VISIT INFORMATION, WORK / SCHOOL INSTRUCTIONS Patient Instructions My [facility] Additional Instructions Continue to take stool softners Take 2 pain pills as directed by Dr. Fernandes. Follow up with her if the nausea or vomiting continues Return to the ER if pain is unbearable
[2017-09-09] MEDS ORDERED: ONDANSETRON INJ 2 MG/ML 2 ML VIAL IV STA (01:23)
[2017-09-09 01:42] LABS: BASO % 0.9 %; BASO ABS # 0.07 K/uL (0-0.2); COMPLETE YES; EOS % 1.9 %; HEMATOCRIT 36.1 % (37-47); IG% 0.4 %; LYMPH ABS # 2.58 K/uL (1.2-3.4); MEAN CELL VOLUME 88.5 fL (80-100); MEAN CORPUSCULAR HEMOGLOBIN 30.9 pg (25-34); MEAN CORPUSCULAR HGB CONC 34.9 g/dl (32-36); MEAN PLATELET VOLUME 10.4 fL (7.4-10.4); MONO % 5.5 %; NEUT % 59.3 %; PLATELET COUNT 203 K/uL (130-400); RED BLOOD COUNT 4.08 M/uL (4.2-5.4); WHITE BLOOD COUNT 8.07 K/uL (4.8-10.8)
[2017-09-09] MEDS ORDERED: OXYC-609 PO (01:49)
[2017-09-09] MEDS ORDERED: AMOX500C3 PO (01:50)
[2017-09-09] MEDS ORDERED: OXYC1TAB3 PO (01:55)
[2017-09-09 02:00] LABS: BUN/CREATININE RATIO 18.2 (10-20); CALCIUM 8.9 mg/dl (8.5-10.1); CREATININE 1.17 mg/dl (0.60-1.20); POTASSIUM 3.7 mmol/L (3.5-5.1)
[2017-09-09 02:02] LABS: ALB/GLOB RATIO 1.2 (0.9-2); C-REACTIVE PROTEIN 0.37 mg/dl (0-0.29)
[2017-09-09 02:56] VITALS: BP 137/66; PULSE 65; O2SAT 98
--- NOTE | 2017-09-09 06:54 | DIAGNOSTIC IMAGING REPORT ---
CT OF THE RIGHT HIP WITHOUT CONTRAST CLINICAL HISTORY: Right hip pain. COMPARISON STUDY: Pelvis radiograph August 28, 2017. TECHNIQUE: Axial images of the right hip were obtained without IV contrast. Sagittal and coronal reconstructions were viewed. FINDINGS: Alignment of the right hip is anatomic. No acute fracture or suspicious lesion is identified by CT. There is severe axial joint space narrowing of the right hip with osteophytosis. There is no evidence for avascular necrosis. Irregularity of the greater trochanter is due to muscular insertion. No adjacent mass, fluid collection or hematoma is identified on this unenhanced CT. There is no right inguinal lymphadenopathy. Bony spurring along the anterior aspect of the right femoral neck is chronic. IMPRESSION: 1. No acute fracture. 2. Severe osteoarthritis of the right hip, as described above. Electronically signed by: Luis Childress M.D. 09/09/2017 6:52 AM Dictated Date/Time: 09/09/2017 6:48 AM
[2017-09-11] MEDS ORDERED: novolog SQ (10:39)
[2017-09-11] MEDS ORDERED: DOCU-94 PO (10:39)
[2017-09-11] MEDS ORDERED: bisacodyl RE (10:39)
[2017-09-11] MEDS ORDERED: SENN-91 PO (10:39)
[2017-09-11] MEDS ORDERED: ACET-1256 PO (10:39)
[2017-09-11] MEDS ORDERED: POLY335019 PO (10:39)
[2017-09-11] MEDS ORDERED: SODIENE PR (10:39)
[2017-09-11] MEDS ORDERED: PANT40TA PO (10:39)
[2017-09-11] MEDS ORDERED: MOMLX PO (10:39)
[2017-09-11] MEDS ORDERED: ONDA4TAB46 PO (10:39)
== END 2017-09-09 03:25 | disposition home or self-care (01) ==
LOC: EDBD 00:47 → C.EDB 00:48
DX: M25.551 Pain in right hip (principal); M17.11 Unilateral primary osteoarthritis, right knee; Z96.653 Presence of artificial knee joint, bilateral; N18.3 Chronic kidney disease, stage 3 (moderate); E11.22 Type 2 diabetes mellitus with diabetic chronic kidney disease; E78.5 Hyperlipidemia, unspecified; I12.9 Hypertensive chronic kidney disease with stage 1 through stage 4 chronic kidney disease, or unspecified chronic kidney disease; E03.9 Hypothyroidism, unspecified; K21.9 Gastro-esophageal reflux disease without esophagitis; R11.2 Nausea with vomiting, unspecified; Z79.891 Long term (current) use of opiate analgesic; Z79.82 Long term (current) use of aspirin

== ENCOUNTER 2017-09-09 11:31 | Emergency (ER) | payer OTHER, MEDICARE ==
[~2017-09-09] VITALS: Ht 162.6 cm; Wt 83.0 kg
[~2017-09-09 11:31] MED LIST changes: +AMOX500C3 PO; +OXYC-609 PO
[2017-09-09 11:42] VITALS: TEMP 37.2; Ht 162.6 cm; Wt 83.0 kg
[2017-09-09] MEDS ORDERED: ONDANSETRON INJ 2 MG/ML 2 ML VIAL IV STA (11:43)
[2017-09-09] MEDS ORDERED: MoRPHine SULFATE 4 MG/ML 1 ML CARP\\VIAL IV PRN (11:45)
--- NOTE | 2017-09-09 12:14 | EMERGENCY ROOM VISIT NOTE ---
History Report prepared by Buddy: Celia Ulloa Under the Supervision of: Dr. Aiden Lentz D.O. First contact with patient: 11:39 Chief Complaint: HIP PAIN Stated Complaint: R-HIP PAIN History of Present Illness The patient is a 87 year old female who presents to the Emergency Room with complaints of constant low back pain beginning 4 days ago. The patient's had right-sided low back pain radiating to her right hip. She was seen in our facility last evening for similar complaints. At that time she had a workup and was treated with pain medication but she still had ongoing pain and was discharged home. The patient has been taking the pain medication with only minimal relief. The pain is worsened with any movement. She denies any trauma. She denies any other symptoms such as chest pain or shortness of breath. She denies having any abdominal pain. The patient states that she has not had a workup for back pain recently. The patient has not been seen by her primary care physician for this pain. Currently she lives at home with her daughter. Her significant other is currently at a snf. The patient denies any numbness or weakness in the lower extremity but walking or moving the right leg exacerbates the pain. Source of History: patient Onset: 4 days ago Position: back Timing: constant Modifying Factors (Worsening): movement Associated Symptoms: No chest pain, No SOB, No abdominal pain Note: Pt denies trauma. Review of Systems See HPI for pertinent positives & negatives. A total of 10 systems reviewed and were otherwise negative. Past Medical & Surgical Medical Problems: (1) CKD (chronic kidney disease) stage 3, GFR 30-59 ml/min (2) Diabetes mellitus type II, controlled (3) Dyslipidemia (4) GERD (gastroesophageal reflux disease) (5) History of pacemaker (6) HTN (hypertension) (7) Hypothyroidism (8) Moderate aortic stenosis (9) Third degree AV block Surgical Problems: (1) H/O cataract removal with insertion of prosthetic lens (2) History of appendectomy (3) History of right knee joint replacement (4) Hx of total knee arthroplasty Family History Patient reports no known family medical history. Social History Smoking Status: Former Smoker Drug Use: none Housing Status: lives with family Occupation Status: retired Current/Historical Medications Scheduled Aspirin (Aspirin Ec), 81 MG PO DAILY Hydrochlorothiazide (Hctz), 25 MG PO 3XWK Levothyroxine Sodium (Levothyroxine Sodium), 25 MCG PO QAM Lisinopril (Lisinopril), 2.5 MG PO DAILY Metoprolol Succinate (Toprol Xl), 12.5 MG PO BID Multivitamin (Multivitamin), 1 TAB PO QAM Omeprazole Magnesium (Prilosec Otc), 20 MG PO DAILY Oxycodone Immediate Rel Tab (Roxicodone Ir), 2 TAB PO QID Allergies Coded Allergies: No Known Allergies (Verified , 09/09/17) Physical Exam Vital Signs Date Time Temp Pulse Resp B/P (MAP) Pulse Ox O2 Delivery O2 Flow Rate FiO2 09/09/17 17:23 80 18 135/72 98 09/09/17 15:34 60 18 103/54 98 Room Air 09/09/17 13:53 70 18 97/58 98 Room Air 09/09/17 12:23 74 09/09/17 11:42 37.2 63 18 139/62 98 Room Air Physical Exam GENERAL: Patient is awake and alert. She appears to be anxious and significantly uncomfortable. EYES: The conjunctivae are clear. The pupils are round and reactive. EARS, NOSE, MOUTH AND THROAT: The nose is without any evidence of any deformity. Mucous membranes are moist tongue is midline NECK: The neck is nontender and supple. RESPIRATORY: Normal respiratory effort is noted there is no evidence of wheezing rhonchi or rales CARDIOVASCULAR: Regular rate and rhythm noted there no murmurs rubs or gallops normal S1 normal S2 GASTROINTESTINAL: The abdomen is soft. Bowel sounds are present in all quadrants. Abdomen is nontender BACK: There is low lumbar spine tenderness to palpation especially in the right paravertebral region. There appears to be pain extending down into the right sacroiliac joint. Patient has significant pain with flexion or extension of her blow her back. MUSCULOSKELETAL/EXTREMITIES: There is no evidence of gross deformity. There is significant pain with external and internal rotation of the right hip but no shortening. SKIN: There is no obvious evidence of any rash. There is pedal edema noted bilaterally. NEUROLOGIC: Patient is awake alert and oriented x3 strength is symmetric patellar reflexes are 1+ bilaterally Medical Decision & Procedures ER Provider Diagnostic Interpretation: CT results as stated below per my review and radiologist interpretation. LUMBAR SPINE CT FINDINGS: Severe disc space narrowing with endplate osteophytes at L1-L2, L2-L3. Moderate disc space narrowing at L3-L4, L4-L5, and L5-S1. 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 Mild levoscoliosis. There is 4 mm of anterolisthesis of L4-L5 and 3 mm of retrolisthesis of L1 on L2. Exaggerated lordosis of the lumbar spine. Severe central canal narrowing at L2-L3, L3-L4, L4-L5. Paraspinal soft tissues are unremarkable. IMPRESSION: 1. No acute fractures within the lumbar spine. 2. Advanced degenerative changes and mild levoscoliosis are again noted. Electronically signed by: Don Vang M.D. 09/09/2017 12:27 PM Dictated Date/Time: 09/09/2017 12:[address] PELVIS NO IV/ORAL CONT (CT) COMPARISON STUDY: Conventional radiographic study of the pelvis dated 08/28/2017 FINDINGS: There is no evidence of pathologic pelvic lymphadenopathy. There is colonic diverticulosis. No acute peridiverticular inflammatory changes are visualized. There is no SI joint diastases. There is no symphysis pubis diastases. No fractures are visualized. There are moderate to severe osteoarthritic changes within the right hip. Mild to moderate osteoarthritic changes are present within the left hip. There is a right femoral neck exostosis. There are right-sided musculotendinous insertional calcifications. Degenerative changes are present within the spine is a grade 1 spondylolisthesis of L4 on L5. There is severe L4-5 spinal stenosis. IMPRESSION: 1. No acute fractures 2. Moderate to severe osteoarthritic changes within the right hip 3. Severe spinal stenosis at the L4-5 level. Electronically signed by: Kyle Swartz M.D. 09/09/2017 12:26 PM Dictated Date/Time: 09/09/2017 12:21 PM Laboratory Results 09/09/17 11:55 Red Blood Count 4.18, Mean Corpuscular Volume 88.0, Mean Corpuscular Hemoglobin 30.4, Mean Corpuscular Hemoglobin Concent 34.5, Mean Platelet Volume 10.6, Neutrophils (%) (Auto) 66.6, Lymphocytes (%) (Auto) 26.6, Monocytes (%) (Auto) 5.4, Eosinophils (%) (Auto) 0.6, Basophils (%) (Auto) 0.6, Neutrophils # (Auto) 5.41, Lymphocytes # (Auto) 2.16, Monocytes # (Auto) 0.44, Eosinophils # (Auto) 0.05, Basophils # (Auto) 0.05 09/09/17 11:55 Test 09/09/17 11:55 09/09/17 14:58 White Blood Count 8.13 K/uL (4.8-10.8) Red Blood Count 4.18 M/uL (4.2-5.4) Hemoglobin 12.7 g/dL (12.0-16.0) Hematocrit 36.8 % (37-47) Mean Corpuscular Volume 88.0 fL (80-100) Mean Corpuscular Hemoglobin 30.4 pg (25-34) Mean Corpuscular Hemoglobin Concent 34.5 g/dl (32-36) Platelet Count 222 K/uL (130-400) Mean Platelet Volume 10.6 fL (7.4-10.4) Neutrophils (%) (Auto) 66.6 % Lymphocytes (%) (Auto) 26.6 % Monocytes (%) (Auto) 5.4 % Eosinophils (%) (Auto) 0.6 % Basophils (%) (Auto) 0.6 % Neutrophils # (Auto) 5.41 K/uL (1.4-6.5) Lymphocytes # (Auto) 2.16 K/uL (1.2-3.4) Monocytes # (Auto) 0.44 K/uL (0.11-0.59) Eosinophils # (Auto) 0.05 K/uL (0-0.5) Basophils # (Auto) 0.05 K/uL (0-0.2) RDW Standard Deviation 42.4 fL (36.4-46.3) RDW Coefficient of Variation 13.2 % (11.5-14.5) Immature Granulocyte % (Auto) 0.2 % Immature Granulocyte # (Auto) 0.02 K/uL (0.00-0.02) Prothrombin Time 10.1 SECONDS (9.0-12.0) Prothromb Time International Ratio 1.0 (0.9-1.1) Activated Partial Thromboplast Time 24.5 SECONDS (21.0-31.0) Partial Thromboplastin Ratio 0.9 Anion Gap 5.0 mmol/L (3-11) Est Creatinine Clear Calc Drug Dose 38.3 ml/min Estimated GFR () 51.9 Estimated GFR (Non- 44.8 BUN/Creatinine Ratio 17.0 (10-20) Calcium Level 9.0 mg/dl (8.5-10.1) Total Bilirubin 0.6 mg/dl (0.2-1) Direct Bilirubin 0.1 mg/dl (0-0.2) Aspartate Amino Transf (AST/SGOT) 18 U/L (15-37) Alanine Aminotransferase (ALT/SGPT) 29 U/L (12-78) Alkaline Phosphatase 92 U/L (45-117) Total Protein 6.9 gm/dl (6.4-8.2) Albumin 3.7 gm/dl (3.4-5.0) Lipase 158 U/L (73-393) Urine Color YELLOW Urine Appearance CLEAR (CLEAR) Urine pH 7.0 (4.5-7.5) Urine Specific [place] 1.012 (1.000-1.030) Urine Protein NEG (NEG) Urine Glucose (UA) NEG (NEG) Urine Ketones NEG (NEG) Urine Occult Blood NEG (NEG) Urine Nitrite NEG (NEG) Urine Bilirubin NEG (NEG) Urine Urobilinogen NEG (NEG) Urine Leukocyte Esterase NEG (NEG) Laboratory results per my review. Medications Administered Medications (Trade) Dose Ordered Sig/Indu Route Start Time Stop Time Status Last Admin Dose Admin Morphine Sulfate (MoRPHine SULFATE INJ) 4 mg Q15M PRN IV 09/09/17 11:45 09/09/17 18:35 DC 09/09/17 11:55 4 MG Ondansetron HCl (Zofran Inj) 4 mg NOW STAT IV 09/09/17 11:43 09/09/17 11:45 DC 09/09/17 11:55 4 MG ED Course 1139: The patient was evaluated in room C11. A complete history and physical examination were performed. 1143: Zofran Inj 4mg IV. 1145: Morphine Sulfate 4mg PRN IV pain. 1253: I reevaluated and updated the patient. The patient is feeling better but is still having pain with movement. 1330: I spoke with the patient and they will be staying at the hospital today and go to [facility] tomorrow. 1331: I discussed the patient's case with Cailin HENRY. The patient will be evaluated for further management. 1340: Upon reevaluation, the patient is doing well. I discussed results and treatment plan with the patient. She verbalizes agreement and understanding. I spoke with Cailin HENRY of [facility]. The patient will be evaluated for further management and care. Medical Decision Prior records/ancillary studies reviewed. The patient's history was concerning for back pain. Differential diagnosis: Etiologies such as musculoskeletal, disc herniation, fracture, aortic disease, metastatic disease, cord compression, discitis, infection, renal colic, gastrointestinal, acute exacerbation of chronic back pain, sciatica, cauda equina, as well as others were entertained. The patient is an 87-year-old female who presented to the emergency department for evaluation of low back pain and right hip pain. The patient appears to have very significant pain. She was seen in our facility recently for similar complaints. The patient was treated with pain medication in the emergency department with significant improvement of her pain. I discussed the patient's laboratory radiographic studies with her. The patient was unable to go home because of severe pain with this reason I discussed her case with the senior case manager. Initially she was felt to be a good candidate for inpatient management however the patient was able to be referred to [facility] for inpatient rehabilitation. The patient was agreeable this plan. The [facility] hospitalist was able to discuss the case with anesthesia and the patient will be set up for injections to treat her spinal stenosis. The patient was agreeable this plan. Transfer paperwork was filled out by myself. Medication Reconcilliation Current Medication List: was personally reviewed by me Blood Pressure Screening Patient's blood pressure: Elevated blood pressure Blood pressure disposition: Elevated BP felt to be situational Consults Time Called: 1325 Consulting Physician: Cailin HENRY- [facility] Returned Call: [phone] I discussed the patient's case with Cailin HENRY. The patient will be evaluated for further management. Impression Primary Impression: Right low back pain Additional Impressions: Spinal stenosis Unable to ambulate Scribe Attestation The scribe's documentation has been prepared under my direction and personally reviewed by me in its entirety. I confirm that the note above accurately reflects all work, treatment, procedures, and medical decision making performed by me. Departure Information Dispostion Being Evaluated By Hospitalist Referrals Gabbie Fernandes M.D. (PCP) Patient Instructions My [facility] Problem Qualifiers Primary Impression: Right low back pain Chronicity: acute Sciatica presence: without sciatica Qualified Codes: M54.5 - Low back pain Additional Impressions: Spinal stenosis Spinal region: unspecified Qualified Codes: M48.00 - Spinal stenosis, site unspecified
[2017-09-09 12:19] LABS: BASO % 0.6 %; BASO ABS # 0.05 K/uL (0-0.2); COMPLETE YES; EOS % 0.6 %; HEMATOCRIT 36.8 % (37-47); IG% 0.2 %; LYMPH % 26.6 %; LYMPH ABS # 2.16 K/uL (1.2-3.4); MEAN CORPUSCULAR HEMOGLOBIN 30.4 pg (25-34); MEAN CORPUSCULAR HGB CONC 34.5 g/dl (32-36); MEAN PLATELET VOLUME 10.6 fL (7.4-10.4); MONO % 5.4 %; NEUT % 66.6 %; PLATELET COUNT 222 K/uL (130-400); RED BLOOD COUNT 4.18 M/uL (4.2-5.4); WHITE BLOOD COUNT 8.13 K/uL (4.8-10.8)
[2017-09-09 12:26] LABS: PARTIAL THROMBOPLASTIN RATIO 0.9; PROTHROMBIN TIME (PATIENT) 10.1 SECONDS (9.0-12.0)
--- NOTE | 2017-09-09 12:28 | DIAGNOSTIC IMAGING REPORT ---
CT PELVIS NO IV/ORAL CONT (CT) CT DOSE: 786.36 mGycm CLINICAL HISTORY: Right hip pain status post trauma TECHNIQUE: Helical images were acquired in the transverse plane. Coronal reformatted images were acquired. A dose lowering technique was utilized adhering to the principles of ALARA. COMPARISON STUDY: Conventional radiographic study of the pelvis dated 08/28/2017 FINDINGS: There is no evidence of pathologic pelvic lymphadenopathy. There is colonic diverticulosis. No acute peridiverticular inflammatory changes are visualized. There is no SI joint diastases. There is no symphysis pubis diastases. No fractures are visualized. There are moderate to severe osteoarthritic changes within the right hip. Mild to moderate osteoarthritic changes are present within the left hip. There is a right femoral neck exostosis. There are right-sided musculotendinous insertional calcifications. Degenerative changes are present within the spine is a grade 1 spondylolisthesis of L4 on L5. There is severe L4-5 spinal stenosis. IMPRESSION: 1. No acute fractures 2. Moderate to severe osteoarthritic changes within the right hip 3. Severe spinal stenosis at the L4-5 level. Electronically signed by: Kyle Swartz M.D. 09/09/2017 12:26 PM Dictated Date/Time: 09/09/2017 12:21 PM
--- NOTE | 2017-09-09 12:29 | DIAGNOSTIC IMAGING REPORT ---
LUMBAR SPINE CT CT DOSE: 582.64 mGycm HISTORY: Lower back pain. Fall. right hip pain TECHNIQUE: Multiaxial CT images of the lumbar spine were performed and reformatted in the sagittal and coronal plane without the use of contrast. A dose lowering technique was utilized adhering to the principles of ALARA. COMPARISON: Lumbar spine 08/28/2017. FINDINGS: Severe disc space narrowing with endplate osteophytes at L1-L2, L2-L3. Moderate disc space narrowing at L3-L4, L4-L5, and L5-S1. 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 Mild levoscoliosis. There is 4 mm of anterolisthesis of L4-L5 and 3 mm of retrolisthesis of L1 on L2. Exaggerated lordosis of the lumbar spine. Severe central canal narrowing at L2-L3, L3-L4, L4-L5. Paraspinal soft tissues are unremarkable. IMPRESSION: 1. No acute fractures within the lumbar spine. 2. Advanced degenerative changes and mild levoscoliosis are again noted. Electronically signed by: Don Vang M.D. 09/09/2017 12:27 PM Dictated Date/Time: 09/09/2017 12:22 PM
[2017-09-09 12:39] LABS: CREATININE 1.12 mg/dl (0.60-1.20); POTASSIUM 3.8 mmol/L (3.5-5.1)
[2017-09-09] MEDS ORDERED: ENOXAPARIN 40 MG/0.4 ML SYR SQ SCH (14:45)
[2017-09-09] MEDS ORDERED: IV FLUIDS COMPLETED PRN ×2 (14:45→16:15)
[2017-09-09] MEDS ORDERED: ONDANSETRON INJ 2 MG/ML 2 ML VIAL IV PRN (14:45)
[2017-09-09] MEDS ORDERED: ACETAMINOPHEN 325 MG TAB PO PRN (14:45)
[2017-09-09 15:13] LABS: URINE APPEARANCE CLEAR (CLEAR); URINE BILIRUBIN NEG (NEG); URINE COLOR YELLOW; URINE NITRITE NEG (NEG); URINE SPECIFIC GRAVITY 1.012 (1.000-1.030); UROBILINOGEN NEG (NEG)
[2017-09-09] MEDS ORDERED: OXYCODONE HCL IR 5 MG TAB (IMMEDIATE RELEASE) PO PRN (15:15)
[2017-09-09] MEDS ORDERED: LIDODERM (LIDOCAINE) PATCH 5% TD SCH (15:30)
[2017-09-09 15:37] LABS: MANUAL MICROSCOPIC REQUIRED? NO; REVIEW REQ? NO
[2017-09-09 17:23] VITALS: BP 135/72; PULSE 80; O2SAT 98
--- NOTE | 2017-09-09 18:11 | Medical Consult ---
Consultation Date of Consultation: Sep 09, 2017. Attending Physician: Dr. Santana Reason for Consultation: Right Hip Pain, Evaluate for Admission History of Present Illness 87 year old female who presents to the ED with persistent right hip pain. Patient was seen in the ED yesterday for similar complaint. She had a CT of the hip done that showed arthritis. Patient was then discharged home. She returns today with persistent right hip pain. She is having difficulty walking. She reports the pain is located in posterior aspect of her hip. She denies lower extremity weakness. No loss of bowel or bladder function. Patient was recently admitted to [facility] 08/29 - 09/01 for UTI and ANGELICA. She has completed her antibiotics. Aside from the hip pain, patient reports she has been feeling well. She had one episode of vomiting last night that she attributes to the pain. She denies abdominal pain and diarrhea. No chest pain, shortness of breath , or palpitations. She denies lightheadedness and dizziness. No fevers or chills. She denies urinary symptoms. In the ED, patient had a CT of the lumbar spine and pelvis done that showed moderate to severe arthritic changes of the hip and severe spinal stenosis at L4-5. Past Medical/Surgical History Medical Problems: (1) ANGELICA (acute kidney injury) Status: Acute (2) Right hip pain Status: Acute Family History non contributory due to patient's advanced age Social History Smoking Status: Former Smoker Alcohol Use: occasionally Allergies Coded Allergies: No Known Allergies (Verified , 09/09/17) Home Medications Roxicodone Ir (Oxycodone HCl) 5 Mg Tab 2 Tab PO QID Hctz (Hydrochlorothiazide) 25 Mg Tab 25 Mg PO 3XWK TAKES MON, WED, & THU. Lisinopril 5 Mg Tab 2.5 Mg PO DAILY Aspirin Ec (Aspirin) 81 Mg Tab 81 Mg PO DAILY Toprol Xl (Metoprolol Succinate) 25 Mg Tabcr 12.5 Mg PO BID Levothyroxine Sodium 25 Mcg Tab 25 Mcg PO QAM Prilosec Otc (Omeprazole Magnesium) 20 Mg Tab 20 Mg PO DAILY 1/2 hour before breakfast Multivitamin (Multivitamins) Tab 1 Tab PO QAM Current Inpatient Medications Current Inpatient Medications Medications (Trade) Dose Ordered Sig/Indu Route Start Time Stop Time Status Last Admin Dose Admin Morphine Sulfate (MoRPHine SULFATE INJ) 4 mg Q15M PRN IV 09/09/17 11:45 09/23/17 11:44 09/09/17 11:55 4 MG Miscellaneous (Iv Fluids Completed) 1 ea PRN PRN N/A 09/09/17 14:45 09/09/18 14:44 Enoxaparin Sodium (Lovenox Inj) 40 mg Q24H SQ 09/09/17 14:45 10/09/17 14:44 UNV Acetaminophen (Tylenol Tab) 650 mg Q4H PRN PO 09/09/17 14:45 10/09/17 14:44 Ondansetron HCl (Zofran Inj) 4 mg Q6H PRN IV 09/09/17 14:45 10/09/17 14:44 Lidocaine (Lidoderm Patch 5%) 1 patch QAM TD 09/09/17 15:30 10/09/17 15:29 Miscellaneous (Remove Lidoderm Patch) 1 ea DAILY@21 N/A 09/09/17 21:00 10/09/17 20:59 Aspirin (Ecotrin Tab) 81 mg DAILY PO 09/10/17 09:00 10/10/17 08:59 Levothyroxine Sodium (Synthroid Tab) 25 mcg DAILYBB PO 09/10/17 07:00 10/10/17 06:59 Lisinopril (Zestril Tab) 2.5 mg DAILY PO 09/10/17 09:00 10/10/17 08:59 Metoprolol Succinate (Toprol Xl Tab) 12.5 mg BID PO 09/09/17 21:00 10/09/17 20:59 Multivitamins (Multivitamin Tab) 1 tab QAM PO 09/10/17 09:00 10/10/17 08:59 Oxycodone HCl (Roxicodone Immediate Rel Tab) 10 mg QID PRN PO 09/09/17 15:15 09/23/17 15:14 Pantoprazole Sodium (Protonix Tab) 40 mg DAILY PO 09/10/17 09:00 10/10/17 08:59 Hydrochlorothiazide (Hydrochlorothiazide Tab) 25 mg MoWeFr@0900 PO 09/11/17 09:00 10/11/17 08:59 Miscellaneous (Iv Fluids Completed) 1 ea PRN PRN N/A 09/09/17 16:15 09/09/18 16:14 Review of Systems ROS per HPI, all other systems reviewed and negative Physical Exam Date Time Temp Pulse Resp B/P (MAP) Pulse Ox O2 Delivery O2 Flow Rate FiO2 09/09/17 17:23 80 18 135/72 98 09/09/17 15:34 60 18 103/54 98 Room Air 09/09/17 13:53 70 18 97/58 98 Room Air 09/09/17 12:23 74 09/09/17 11:42 37.2 63 18 139/62 98 Room Air General Appearance: WD/WN, no apparent distress Head: normocephalic, atraumatic Eyes: normal inspection, EOMI, sclerae normal ENT: hearing grossly normal, + pertinent finding (mucous membranes moist) Neck: supple, no JVD, trachea midline Respiratory/Chest: lungs clear, normal breath sounds, no respiratory distress Cardiovascular: regular rate, rhythm, no edema, normal peripheral pulses, + systolic murmur Abdomen/GI: normal bowel sounds, non tender, soft, no organomegaly Back: + pertinent finding (tenderness along the right SI joint and iliac crest ) Extremities/Musculoskelatal: normal inspection, no calf tenderness, normal capillary refill Neurologic/Psych: no motor/sensory deficits, alert, normal mood/affect, oriented x 3 Skin: normal color, warm/dry Laboratory Results Last 24 Hours Test 09/09/17 11:55 09/09/17 14:58 White Blood Count 8.13 K/uL Red Blood Count 4.18 M/uL Hemoglobin 12.7 g/dL Hematocrit 36.8 % Mean Corpuscular Volume 88.0 fL Mean Corpuscular Hemoglobin 30.4 pg Mean Corpuscular Hemoglobin Concent 34.5 g/dl Platelet Count 222 K/uL Mean Platelet Volume 10.6 fL Neutrophils (%) (Auto) 66.6 % Lymphocytes (%) (Auto) 26.6 % Monocytes (%) (Auto) 5.4 % Eosinophils (%) (Auto) 0.6 % Basophils (%) (Auto) 0.6 % Neutrophils # (Auto) 5.41 K/uL Lymphocytes # (Auto) 2.16 K/uL Monocytes # (Auto) 0.44 K/uL Eosinophils # (Auto) 0.05 K/uL Basophils # (Auto) 0.05 K/uL RDW Standard Deviation 42.4 fL RDW Coefficient of Variation 13.2 % Immature Granulocyte % (Auto) 0.2 % Immature Granulocyte # (Auto) 0.02 K/uL Prothrombin Time 10.1 SECONDS Prothromb Time International Ratio 1.0 Activated Partial Thromboplast Time 24.5 SECONDS Partial Thromboplastin Ratio 0.9 Sodium Level 133 mmol/L Potassium Level 3.8 mmol/L Chloride Level 98 mmol/L Carbon Dioxide Level 30 mmol/L Anion Gap 5.0 mmol/L Blood Urea Nitrogen 19 mg/dl Creatinine 1.12 mg/dl Est Creatinine Clear Calc Drug Dose 38.3 ml/min Estimated GFR () 51.9 Estimated GFR (Non- 44.8 BUN/Creatinine Ratio 17.0 Random Glucose 111 mg/dl Calcium Level 9.0 mg/dl Total Bilirubin 0.6 mg/dl Direct Bilirubin 0.1 mg/dl Aspartate Amino Transf (AST/SGOT) 18 U/L Alanine Aminotransferase (ALT/SGPT) 29 U/L Alkaline Phosphatase 92 U/L Total Protein 6.9 gm/dl Albumin 3.7 gm/dl Lipase 158 U/L Urine Color YELLOW Urine Appearance CLEAR Urine pH 7.0 Urine Specific [place] 1.012 Urine Protein NEG Urine Glucose (UA) NEG Urine Ketones NEG Urine Occult Blood NEG Urine Nitrite NEG Urine Bilirubin NEG Urine Urobilinogen NEG Urine Leukocyte Esterase NEG Assessment & Plan Patient was seen and examined in the ED. She is an 87 year old female who is presenting with persistent right posterior hip / lower back pain. CT imaging was reviewed with Dr. Ken who feels strongly that patient's symptoms are coming from lumbar radiculopathy from severe L4-5 stenosis. He feels the patient would benefit from an epidural infection with pain management and he can see the patient as an outpatient next week. Case was then discussed with Dr. Polina Webb who recommended setting the patient up for an outpatient injection. It was determined that the patient is stable for discharge to [facility] for rehab and pain management needs. Her other chronic medical problems are stable and she is to continue her medicines as prescribed. Phone numbers were provided to case management for the patient scheduled with Dr. Webb and Dr. Ken. Case was also discussed with Chris Uriarte PA-C with orthopedics regarding the arthritis noted in the right hip. If patient continues to have discomfort with the aforementioned treatments , she can been seen at the [facility] office, phone # [phone] Attending Addendum Pt was seen and examined. Agreed with Cailin PRYOR examen and assessment and plan. Pain improved in the ER. Denies any bowel and bladder loss. Will need to follow up with ortho as an outpatient for the severe stenosis at L4-L5. If pain does not improve, follow up with pain management for outpatient injection. Pt will discharge from the ER to [facility] for rehab. Albert Santana MD
[2017-09-09] MEDS ORDERED: METOPROLOL SUCC 25MG EXT REL TAB PO SCH (21:00)
[2017-09-10] MEDS ORDERED: LEVOTHYROXINE 25 MCG TAB PO SCH (07:00)
[2017-09-10] MEDS ORDERED: ASPIRIN 81 MG ECTAB PO SCH (09:00)
[2017-09-10] MEDS ORDERED: PANTOprazole SOD 40 MG TAB PO SCH (09:00)
[2017-09-10] MEDS ORDERED: LISINOPRIL 2.5 MG TAB PO SCH (09:00)
[2017-09-10] MEDS ORDERED: MULTIVITAMIN TAB PO SCH (09:00)
[2017-09-11] MEDS ORDERED: HYDROCHLOROTHIAZIDE 25 MG TAB PO SCH (09:00)
[2017-09-11] MEDS ORDERED: ONDA4TAB46 PO (10:39)
[2017-09-11] MEDS ORDERED: DOCU-94 PO (10:39)
[2017-09-11] MEDS ORDERED: MOMLX PO (10:39)
[2017-09-11] MEDS ORDERED: bisacodyl RE (10:39)
[2017-09-11] MEDS ORDERED: SODIENE PR (10:39)
[2017-09-11] MEDS ORDERED: ACET-1256 PO (10:39)
[2017-09-11] MEDS ORDERED: novolog SQ (10:39)
[2017-09-11] MEDS ORDERED: PANT40TA PO (10:39)
[2017-09-11] MEDS ORDERED: POLY335019 PO (10:39)
[2017-09-11] MEDS ORDERED: SENN-91 PO (10:39)
== END 2017-09-09 17:24 ==
LOC: EDBD 11:31 → C.EDC 11:32 → EDBEDREQSVC 14:20 → EDBEDREQ 14:20 → ENRESERV 15:25 → CANBEDREQ 15:51 → C.EDC 17:24
DX: M54.5 Low back pain (principal); M48.00 Spinal stenosis, site unspecified; R26.2 Difficulty in walking, not elsewhere classified; R11.10 Vomiting, unspecified; I12.9 Hypertensive chronic kidney disease with stage 1 through stage 4 chronic kidney disease, or unspecified chronic kidney disease; E11.22 Type 2 diabetes mellitus with diabetic chronic kidney disease; N18.3 Chronic kidney disease, stage 3 (moderate); K21.9 Gastro-esophageal reflux disease without esophagitis; E03.9 Hypothyroidism, unspecified; Z87.891 Personal history of nicotine dependence; Z96.651 Presence of right artificial knee joint; Z90.89 Acquired absence of other organs; Z95.0 Presence of cardiac pacemaker; Z97.3 Presence of spectacles and contact lenses; Z98.49 Cataract extraction status, unspecified eye; Z79.82 Long term (current) use of aspirin; Z79.899 Other long term (current) drug therapy

== ENCOUNTER 2017-10-11 12:50 | Inpatient (IN) | payer OTHER, MEDICARE ==
[~2017-10-11] VITALS: Ht 162.6 cm; Wt 81.5 kg
[~2017-10-11 12:50] MED LIST changes: +ACET-1256 PO; -AMOX500C3 PO; -AMX500 PO; +DOCU-94 PO; +MOMLX PO; -OMEP20TA14 PO; +ONDA4TAB46 PO; -OXYC-609 PO; +PANT40TA PO; +POLY335019 PO; +SENN-91 PO; +SODIENE PR; +bisacodyl RE; +novolog SQ
[2017-10-11] MEDS ORDERED: OMEP20TA PO (13:18)
--- NOTE | 2017-10-11 13:31 | EMERGENCY ROOM VISIT NOTE ---
History Report prepared by Buddy: Gus Prieto Under the Supervision of: Dr. Haresh Seay M.D. First contact with patient: 13:20 Chief Complaint: LEG PAIN,LEG INJURY Stated Complaint: R LEG PAIN History of Present Illness The patient is a 87 year old female who presents to the Emergency Room with complaints of constant right leg pain that started a long time ago which worsened today. She notes that the pain goes from her right hip to her right ankle and is worsened with palpation and movement. She notes that she does not have any weakness, though she has some pain, and she notes that she was unable to stand this morning due to the pain. She denies any recent loss of consciousness, falls, fevers, chills, chest pain, shortness of breath, abdominal pain, nausea, vomiting, diarrhea, and any blood thinner use. Source of History: patient Onset: a long time ago worsening today Position: leg (right) Timing: worsening Modifying Factors (Worsening): movement, other (palpation) Associated Symptoms: No LOC, No fevers, No chills, No chest pain, No SOB, No nausea, No vomiting, No abdominal pain, No diarrhea Review of Systems See HPI for pertinent positives & negatives. A total of 10 systems reviewed and were otherwise negative. Past Medical & Surgical Medical Problems: (1) CKD (chronic kidney disease) stage 3, GFR 30-59 ml/min (2) Diabetes mellitus type II, controlled (3) Dyslipidemia (4) GERD (gastroesophageal reflux disease) (5) History of pacemaker (6) HTN (hypertension) (7) Hypothyroidism (8) Moderate aortic stenosis (9) Third degree AV block Surgical Problems: (1) H/O cataract removal with insertion of prosthetic lens (2) History of appendectomy (3) History of right knee joint replacement (4) Hx of total knee arthroplasty Old medical records were reviewed. Nurse's notes were reviewed and I agree with. Family History Patient reports no known family medical history. Social History Smoking Status: Former Smoker Marital Status: Occupation Status: retired Current/Historical Medications Scheduled Aspirin (Aspirin Ec), 81 MG PO DAILY Docusate Sodium (Colace), 1 CAP PO BID Hydrochlorothiazide (Hctz), 25 MG PO 3XWK Levothyroxine Sodium (Levothyroxine Sodium), 25 MCG PO QAM Lisinopril (Lisinopril), 2.5 MG PO DAILY Metoprolol Succinate (Toprol Xl), 12.5 MG PO BID Multivitamin (Multivitamin), 1 TAB PO QAM Omeprazole (Omeprazole), 20 MG PO DAILY Scheduled PRN Oxycodone Immediate Rel Tab (Roxicodone Ir), 2 TAB PO Q4 PRN for Pain Polyethylene Glycol 3350 (Miralax), 17 GM PO DAILY PRN for prn Allergies Coded Allergies: No Known Allergies (Verified , 10/11/17) Physical Exam Vital Signs Date Time Temp Pulse Resp B/P (MAP) Pulse Ox O2 Delivery O2 Flow Rate FiO2 10/11/17 16:50 75 20 115/85 100 10/11/17 14:27 77 18 112/72 97 Room Air 10/11/17 12:59 36.8 73 18 138/78 94 Room Air Physical Exam General: Non-ill appearing older female in no acute distress. HEENT: Normal cephalic atraumatic. Pupils are equal round and reactive to light. Extraocular movements are intact. Oropharynx is pink with moist mucous membranes. No swelling of the mouth lips or tongue. Neck: Supple with a midline trachea. No meningeal signs or stiffness, no JVD or bruits. No Stridor. Chest: Clear to auscultation bilaterally. No wheezes or rhonchi. No increased work of breathing. Heart: regular rate and rhythm. Abdomen: Soft nontender, nondistended without rebound guarding or rigidity. Extremities:Right hip is painful with movement. Right calf tenderness. Feet are pink and well perfused. Good capillary refill. Normal pulse exam. Spine/Back. Non tender to palpation. No CVA tenderness Skin: Good turgor without rashes. Neurologic exam: Cranial nerves two through 12 are intact. Motor and sensation are intact and symmetrical throughout. Medical Decision & Procedures ER Provider Diagnostic Interpretation: Radiology results as stated below per my review and radiologist interpretation: PELVIS 1 OR 2 VIEW ROUTINE, R FEMUR 2 VIEWS ROUTINE HISTORY: 87 years-old Female eval for rt hip pain acute pelvis and right hip pain COMPARISON: CT pelvis 09/09/2017 TECHNIQUE: AP view of the pelvis with 2 views of the right femur FINDINGS: PELVIS: Bony structures appear moderately demineralized. Multilevel degenerative changes of the lumbar spine. Moderate to severe degenerative changes of the bilateral hips. Degenerative changes are also seen within the SI joints and pubic symphysis. Peripheral vascular disease. No acute pelvic ring fracture identified. Bilateral proximal femora appear intact. RIGHT FEMUR: No acute fracture or subluxation identified. Right knee arthroplasty. IMPRESSION: 1. No acute fracture or subluxation identified. 2. Moderate bone demineralization. 3. Moderate to severe degenerative changes of the bilateral hips. 4. Peripheral vascular disease. The above report was generated using voice recognition software. It may contain grammatical, syntax or spelling errors. Electronically signed by: Yobani Cisneros M.D. 10/11/2017 4:16 PM Dictated Date/Time: 10/11/2017 4:13 PM R VENOUS DOPP LOWER EXT UNILAT HISTORY: 87 years-old Female Leg swelling/pain acute right leg pain and swelling COMPARISON: Duplex venous Doppler study 07/04/2016 TECHNIQUE: Multiple real-time sonographic images of the right lower extremity deep venous structures were obtained assessing grayscale appearance, color and spectral flow. FINDINGS: Study is limited secondary to patient cooperation. There is normal flow, phasicity, compressibility and augmentation within the right lower extremity deep venous structures. IMPRESSION: No sonographic evidence of deep venous thrombosis. The above report was generated using voice recognition software. It may contain grammatical, syntax or spelling errors. Electronically signed by: Yobani Cisneros M.D. 10/11/2017 3:57 PM Dictated Date/Time: 10/11/2017 3:55 PM PELVIS 1 OR 2 VIEW ROUTINE, R FEMUR 2 VIEWS ROUTINE HISTORY: 87 years-old Female eval for rt hip pain acute pelvis and right hip pain COMPARISON: CT pelvis 09/09/2017 TECHNIQUE: AP view of the pelvis with 2 views of the right femur FINDINGS: PELVIS: Bony structures appear moderately demineralized. Multilevel degenerative changes of the lumbar spine. Moderate to severe degenerative changes of the bilateral hips. Degenerative changes are also seen within the SI joints and pubic symphysis. Peripheral vascular disease. No acute pelvic ring fracture identified. Bilateral proximal femora appear intact. RIGHT FEMUR: No acute fracture or subluxation identified. Right knee arthroplasty. IMPRESSION: 1. No acute fracture or subluxation identified. 2. Moderate bone demineralization. 3. Moderate to severe degenerative changes of the bilateral hips. 4. Peripheral vascular disease. The above report was generated using voice recognition software. It may contain grammatical, syntax or spelling errors. Electronically signed by: Yobani Cisneros M.D. 10/11/2017 4:16 PM Dictated Date/Time: 10/11/2017 4:13 PM Laboratory Results 10/11/17 13:55 Red Blood Count 3.82, Mean Corpuscular Volume 88.2, Mean Corpuscular Hemoglobin 30.4, Mean Corpuscular Hemoglobin Concent 34.4, Mean Platelet Volume 9.8, Neutrophils (%) (Auto) 76.6, Lymphocytes (%) (Auto) 17.6, Monocytes (%) (Auto) 4.7, Eosinophils (%) (Auto) 0.3, Basophils (%) (Auto) 0.6, Neutrophils # (Auto) 4.92, Lymphocytes # (Auto) 1.13, Monocytes # (Auto) 0.30, Eosinophils # (Auto) 0.02, Basophils # (Auto) 0.04 10/11/17 13:55 Test 10/11/17 13:55 10/11/17 14:42 White Blood Count 6.42 K/uL (4.8-10.8) Red Blood Count 3.82 M/uL (4.2-5.4) Hemoglobin 11.6 g/dL (12.0-16.0) Hematocrit 33.7 % (37-47) Mean Corpuscular Volume 88.2 fL (80-100) Mean Corpuscular Hemoglobin 30.4 pg (25-34) Mean Corpuscular Hemoglobin Concent 34.4 g/dl (32-36) Platelet Count 209 K/uL (130-400) Mean Platelet Volume 9.8 fL (7.4-10.4) Neutrophils (%) (Auto) 76.6 % Lymphocytes (%) (Auto) 17.6 % Monocytes (%) (Auto) 4.7 % Eosinophils (%) (Auto) 0.3 % Basophils (%) (Auto) 0.6 % Neutrophils # (Auto) 4.92 K/uL (1.4-6.5) Lymphocytes # (Auto) 1.13 K/uL (1.2-3.4) Monocytes # (Auto) 0.30 K/uL (0.11-0.59) Eosinophils # (Auto) 0.02 K/uL (0-0.5) Basophils # (Auto) 0.04 K/uL (0-0.2) RDW Standard Deviation 41.8 fL (36.4-46.3) RDW Coefficient of Variation 13.0 % (11.5-14.5) Immature Granulocyte % (Auto) 0.2 % Immature Granulocyte # (Auto) 0.01 K/uL (0.00-0.02) Anion Gap 7.0 mmol/L (3-11) Est Creatinine Clear Calc Drug Dose 44.3 ml/min Estimated GFR () 62.5 Estimated GFR (Non- 53.9 BUN/Creatinine Ratio 14.4 (10-20) Calcium Level 9.0 mg/dl (8.5-10.1) Total Bilirubin 0.6 mg/dl (0.2-1) Direct Bilirubin 0.2 mg/dl (0-0.2) Aspartate Amino Transf (AST/SGOT) 26 U/L (15-37) Alanine Aminotransferase (ALT/SGPT) 28 U/L (12-78) Alkaline Phosphatase 84 U/L (45-117) Total Protein 6.5 gm/dl (6.4-8.2) Albumin 3.4 gm/dl (3.4-5.0) Lipase 125 U/L (73-393) Prothrombin Time 10.4 SECONDS (9.0-12.0) Prothromb Time International Ratio 1.0 (0.9-1.1) Activated Partial Thromboplast Time 26.4 SECONDS (21.0-31.0) Partial Thromboplastin Ratio 1.0 Laboratory studies as stated above per my review. ED Course 1320: Past medical records reviewed. The patient was evaluated in room B10, and a complete history and physical examination were performed. 1510: I reevaluated the patient, and she is waiting to go to X-ray. 1625: I reassessed the patient, and she is doing well. We are trying to get a hold of her daughter. 1648: I talked with the patient and her daughter, and the patient wants to go home, but the daughter wants to discuss other options with the piano case and bench assembler. 1713: The piano case and bench assembler was able to arrange home health. 1745: Upon reevaluation, the patient is still uncomfortable, and the daughter does not think that the patient is able to go home. I discussed the results and treatment plan with the patient and her daughter. They verbalized agreement of the treatment plan. The patient will be evaluated for further management. Medical Decision Differentials include, but are not limited to; arthritis, fracture, dislocation , DVT, infection. This patient comes in as described above. She was placed in room B 10. She is here for treatment and evaluation right leg pain. It seems to start at the hip ago downward. The foot itself appears pink and well-perfused appearing with normal motor and sensation. She has some mild calf tenderness as well. There is no evidence suggest cellulitis. She does have slight edema. She has no other systemic complaints of chest pain, shortness breath, or fever chills. She 's had no recent trauma . it sounds like she's had some chronic hip issues as well. X-rays were obtained as well as blood work. I did ultrasound her evaluated for the possibility DVT. Again, her exam is not consistent with arterial compromise at this point. Ultrasound shows no evidence of DVT. Her x- rays show arthritis but no acute fracture or dislocation. She's no acute electrolyte or metabolic abnormalities. She initially fell up to going home and she tried to get up and go to the bathroom but said she was too much pain and could not safely be a home. I did paige munoz case management team talk to her as well has a daughter. I consulted Dr. Ugarte to see her for likely admission/observation and possible placement. Medication Reconcilliation Current Medication List: was personally reviewed by me Blood Pressure Screening Patient's blood pressure: Normal blood pressure Consults Time Called: 174 Consulting Physician: Dr. Ugarte Returned Call: [phone] Discussed the patient's case with Dr. Ugarte. The patient will be evaluated for further management. Impression Primary Impression: Right leg pain Additional Impressions: Arthritis Ambulatory dysfunction Scribe Attestation The scribe's documentation has been prepared under my direction and personally reviewed by me in its entirety. I confirm that the note above accurately reflects all work, treatment, procedures, and medical decision making performed by me. Departure Information Dispostion Being Evaluated By Hospitalist Prescriptions Oxycodone Immediate Rel Tab (ROXICODONE IR) 5 Mg Tab 2 TAB PO Q4 Y for Pain, #1 Prov: Ashkan Ugarte MD 1/21/18 Lisinopril (Lisinopril) 5 Mg Tab 2.5 MG PO DAILY, #30 Prov: Ashkan Ugarte MD 10/11/17 Referrals Gabbie Fernandes M.D. (PCP) Patient Instructions [facility] Problem Qualifiers
[2017-10-11 14:06] LABS: BASO % 0.6 %; BASO ABS # 0.04 K/uL (0-0.2); EOS % 0.3 %; EOS ABS # 0.02 K/uL (0-0.5); HEMATOCRIT 33.7 % (37-47); HEMOGLOBIN 11.6 g/dL (12.0-16.0); IG# 0.01 K/uL (0.00-0.02); LYMPH % 17.6 %; LYMPH ABS # 1.13 K/uL (1.2-3.4); MEAN CELL VOLUME 88.2 fL (80-100); MEAN CORPUSCULAR HEMOGLOBIN 30.4 pg (25-34); MEAN CORPUSCULAR HGB CONC 34.4 g/dl (32-36); MEAN PLATELET VOLUME 9.8 fL (7.4-10.4); MONO % 4.7 %; NEUT % 76.6 %; NEUT ABS # 4.92 K/uL (1.4-6.5); PLATELET COUNT 209 K/uL (130-400); RED CELL DISTRIBUTION WIDTH SD 41.8 fL (36.4-46.3); WHITE BLOOD COUNT 6.42 K/uL (4.8-10.8)
[2017-10-11 14:24] LABS: ALBUMIN 3.4 gm/dl (3.4-5.0); CREATININE 0.96 mg/dl (0.60-1.20); POTASSIUM 4.1 mmol/L (3.5-5.1)
[2017-10-11 14:27] LABS: TOTAL PROTEIN 6.5 gm/dl (6.4-8.2)
[2017-10-11 15:02] LABS: PTT PATIENT 26.4 SECONDS (21.0-31.0)
--- NOTE | 2017-10-11 15:58 | DIAGNOSTIC IMAGING REPORT ---
R VENOUS DOPP LOWER EXT UNILAT HISTORY: 87 years-old Female Leg swelling/pain acute right leg pain and swelling COMPARISON: Duplex venous Doppler study 07/04/2016 TECHNIQUE: Multiple real-time sonographic images of the right lower extremity deep venous structures were obtained assessing grayscale appearance, color and spectral flow. FINDINGS: Study is limited secondary to patient cooperation. There is normal flow, phasicity, compressibility and augmentation within the right lower extremity deep venous structures. IMPRESSION: No sonographic evidence of deep venous thrombosis. The above report was generated using voice recognition software. It may contain grammatical, syntax or spelling errors. Electronically signed by: Yobani Cisneros M.D. 10/11/2017 3:57 PM Dictated Date/Time: 10/11/2017 3:55 PM
--- NOTE | 2017-10-11 16:17 | DIAGNOSTIC IMAGING REPORT ---
PELVIS 1 OR 2 VIEW ROUTINE, R FEMUR 2 VIEWS ROUTINE HISTORY: 87 years-old Female eval for rt hip pain acute pelvis and right hip pain COMPARISON: CT pelvis 09/09/2017 TECHNIQUE: AP view of the pelvis with 2 views of the right femur FINDINGS: PELVIS: Bony structures appear moderately demineralized. Multilevel degenerative changes of the lumbar spine. Moderate to severe degenerative changes of the bilateral hips. Degenerative changes are also seen within the SI joints and pubic symphysis. Peripheral vascular disease. No acute pelvic ring fracture identified. Bilateral proximal femora appear intact. RIGHT FEMUR: No acute fracture or subluxation identified. Right knee arthroplasty. IMPRESSION: 1. No acute fracture or subluxation identified. 2. Moderate bone demineralization. 3. Moderate to severe degenerative changes of the bilateral hips. 4. Peripheral vascular disease. The above report was generated using voice recognition software. It may contain grammatical, syntax or spelling errors. Electronically signed by: Yobnai Cisneros M.D. 10/11/2017 4:16 PM Dictated Date/Time: 10/11/2017 4:13 PM
[2017-10-11] MEDS ORDERED: ACETAMINOPHEN 325 MG TAB PO PRN (18:45)
[2017-10-11] MEDS ORDERED: ALUMINUM/MAGNESIUM/SIMETH (MAALOX MAX) 30 ML UDC PO PRN (18:45)
[2017-10-11] MEDS ORDERED: ONDANSETRON INJ 2 MG/ML 2 ML VIAL IV PRN (18:45)
[2017-10-11] MEDS ORDERED: NON-FORMULARY MEDICATION (Polyethylene Glycol 3350 (Miralax) 17 GM) PO PRN (18:45)
[2017-10-11] MEDS ORDERED: OXYC1TAB3 PO (18:48)
[2017-10-11] MEDS ORDERED: LSN5 PO (18:48)
--- NOTE | 2017-10-11 20:49 | DIAGNOSTIC IMAGING REPORT ---
R HIP-LOWER EXTREMITY WITHOUT HISTORY: 87 years-old Female RIGHT HP PAIN acute right hip pain with recent fall COMPARISON: Pelvis and right femur radiographs 10/11/2017 TECHNIQUE: Multiple axial CT images of the right hip were obtained without contrast. A dose lowering technique was used consistent with the principals of CARLOSRA. FINDINGS: Moderate to severe degenerative changes of the right femoral acetabular joint with moderate bone demineralization. Chondrocalcinosis about the right hip is also present. There is no acute fracture or subluxation identified. Degenerative changes with chondrocalcinosis involves the pubic symphysis. No pelvic ring fracture identified. Imaged right femur appears intact. Dystrophic appearing calcifications are noted at the insertion of the gluteus axis musculature with mild myositis ossificans at the distal myotendinous fibers. Some lipping changes are noted involving the proximal insertional hamstring musculature. Moderate to extensive arterial calcifications of the right groin and thigh. Vascular calcifications are seen within the uterus. Mild circumferential wall thickening of the urinary bladder. Mild colonic diverticulosis. IMPRESSION: 1. Moderate to severe degenerative changes of the right femoral acetabular joint with chondrocalcinosis. No acute fracture or subluxation. 2. Myositis ossifications involves the myotendinous distribution of the distal gluteus lawson insertion site about the proximal right femur and also within the proximal hamstring musculature adjacent to the ischial tuberosity. 3. Mild wall thickening of the urinary bladder, likely secondary to partial distention. 4. Colonic diverticulosis. The above report was generated using voice recognition software. It may contain grammatical, syntax or spelling errors. Electronically signed by: Yobani Cisneros M.D. 10/11/2017 8:47 PM Dictated Date/Time: 10/11/2017 8:38 PM
[2017-10-11 20:50] VITALS: BP 144/81; PULSE 87; TEMP 36.5; O2SAT 97; Ht 162.6 cm; Wt 81.5 kg
--- NOTE | 2017-10-11 20:56 | DIAGNOSTIC IMAGING REPORT ---
LUMBAR SPINE WITHOUT HISTORY: 87 years-old Female BACK PAIN acute low back pain with recent fall. COMPARISON: CT lumbar spine 09/09/2017 TECHNIQUE: Multiple axial CT images of the lumbar spine were obtained without contrast. A dose lowering technique was used consistent with the principals of TEETEE. FINDINGS: Unchanged 5 mm anterolisthesis L4 on L5. Severe intervertebral disc space narrowing is again noted at the L1-L2 and L2-L3 levels. Moderate to severe intervertebral disc space narrowing at L3-L4 and L5-S1 with moderate disc space narrowing at L4-L5. Severe facet arthropathy throughout the lumbar spine. Increased lordotic curvature is noted. Severe central canal stenosis redemonstrated at L2-L3, L3-L4 and L4-L5. Multilevel foraminal narrowing is also present which is severe bilaterally at L2-L3. There is no acute fracture or subluxation identified. Moderate sized Schmorl's node is again seen involving the superior endplate of T12. Mild levoscoliosis. No acute insufficiency fracture of the sacrum. Degenerative changes of the bilateral SI joints. Extensive atherosclerosis of the abdominal aorta and iliac vasculature. No acute intra-abdominal abnormality identified. IMPRESSION: 1. No acute fracture within the lumbar spine. 2. Mild levoscoliosis with advanced multilevel degenerative changes of the lumbar spine redemonstrated as above. 3. Unchanged grade 1 anterolisthesis L4 on L5 likely secondary to long-standing facet arthropathy. The above report was generated using voice recognition software. It may contain grammatical, syntax or spelling errors. Electronically signed by: Yobani Cisneros M.D. 10/11/2017 8:54 PM Dictated Date/Time: 10/11/2017 8:48 PM
--- NOTE | 2017-10-11 21:25 | HISTORY & PHYSICAL EXAMINATION ---
DATE OF ADMISSION: 10/11/2017 CHIEF COMPLAINT: Right hip pain, knee pain and ambulatory dysfunction. HISTORY OF PRESENT ILLNESS: This is an 87-year-old female with past medical history significant for diet-controlled diabetes, chronic kidney disease stage III, third-degree heart block status post pacemaker, trochanteric bursitis of right hip, hyperlipidemia, hypothyroidism, aortic wall stenosis, presents with ongoing pain in the right hip radiated down to the knees. The patient's pain is getting worse since last 1 month, not getting better and not able to ambulate because of the pain. Daughter brought her into the ER and ER physician tried to discharge the patient but daughter does not want to take her back home. The patient otherwise denies any other complaints except for this pain. Denies any headaches, no dizziness, no blurred vision, no sore throat, no runny nose, no difficulty swallowing. No earache. No chest pain, no shortness of breath, no cough, no nausea, no vomiting, no abdominal pain. Normal bowel and bladder movements. No blood in the stools, no blood in the urine. No burning micturition. She has chronic swelling in the lower extremities. Appetite is okay. ALLERGIES: No known drug allergies. PAST MEDICAL HISTORY: As mentioned above. PAST SURGICAL HISTORY: Left total knee arthroplasty, EGD with biopsies, EGD with endoscopic ultrasound, dual chamber pacemaker placement, cataract surgery and right total knee arthroplasty. MEDICATIONS: The patient is on MiraLax 17 grams p.o. daily, oxycodone 10 mg p.o. q. 4 hours p.r.n., Senokot 1 tablet daily as needed, lisinopril 2.5 mg p.o. daily, levothyroxine 25 mcg p.o. daily, omeprazole 20 mg p.o. daily, Toprol-XL 12.5 mg p.o. b.i.d., hydrochlorothiazide 25 mg p.o. 3 times a week, aspirin 81 mg p.o. daily, Tylenol 500 mg every 8 hours p.r.n. pain, and multivitamin 1 tablet p.o. daily. FAMILY HISTORY: Significant for daughter has been lung cancer. Paternal grandmother had diabetes. SOCIAL HISTORY: Former smoker, quit 25 years ago. Alcohol occasional. No drug use. Lives with her daughter. REVIEW OF SYMPTOMS: As per HPI. Rest of review of symptoms negative. PHYSICAL EXAMINATION: GENERAL: The patient is old and frail, not in distress. VITAL SIGNS: Temperature 36.8, pulse 75, respiratory rate 20, blood pressure 115/83, oxygen 100% on room air. HEENT: No pallor, no icterus. Pupils equal, round react to light. NECK: No JVD, no neck masses, no carotid bruits. CARDIOVASCULAR: S1, S2 heard, regular rate and rhythm, ESM murmur, no gallop. RESPIRATORY SYSTEM: Clear to auscultation bilaterally. No wheezing, no crackles. ABDOMEN: Soft, bowel sounds present. Nontender. No distention. CENTRAL NERVOUS SYSTEM: Cranial nerves II-XII grossly intact. Nonfocal. EXTREMITIES: Chronic lower extremity edema present. LABORATORY DATA: WBC 6.4, hemoglobin 11.6, hematocrit 33.7, and platelets 209. Sodium 135, potassium 4.1, chloride 99, bicarbonate 29, BUN 14, creatinine 0.9, serum glucose 108, calcium 9. Total bilirubin 0.6, direct bilirubin 0.2, AST 26, ALT 28, alkaline phosphatase was 84, total protein 6.5, albumin 3.4, lipase 125. PT 10.4, INR 1, APTT 26.4. IMAGING DATA: Pelvic x-ray - no acute fractures or subluxation identified. Lower extremity ultrasound - no DVT seen. Pelvic x-ray and right femur x-ray - no acute fracture or subluxation identified. ASSESSMENT AND PLAN: This 67-year-old female presents with pain coming from the right hip radiating down and ambulatory dysfunction. 1. Right hip pain and ambulatory dysfunction, history of arthritis. X-ray is unremarkable except for showing degenerative arthritis. Will get a CT scan of the lumbar spine and CT scan of the hip. Pain control with home meds pain medications. PT, OT and social service to help with discharge planning. 2. Diabetes, diet controlled. We will follow the blood sugars in the hospital. Diabetic diet. 3. Chronic kidney disease stage III. We will follow the labs. Creatinine is 0.9 today. 4. History of hypertension. Continue lisinopril, metoprolol. We will monitor the blood pressure. 5. Chronic Diastolic congestive heart failure . Moderate aortic stenosis, chronic lower extremity edema, hydrochlorothiazide 3 times a week. We will monitor. 6. Gastroesophageal reflux disease, proton pump inhibitor. 7. Hypothyroidism. Synthroid. 8. History of third-degree heart block status post pacemaker. 9. Deep venous thrombosis prophylaxis. Heparin subQ. 10. Disposition: Admit to medical floor. Physical therapy, occupational therapy and Social Service to help with discharge planning. Code status do not resuscitate, as per my discussion with the patient and daughter. BUSHRAD
[2017-10-11] MEDS: DOCUSATE SODIUM 100 MG CAP PO SCH (21:41)
[2017-10-11] MEDS: METOPROLOL SUCC 25MG EXT REL TAB PO SCH (21:42)
[2017-10-11] MEDS: HEPARIN SOD 5000 UNIT/0.5 ML CARP SQ SCH (21:43)
[2017-10-11] MEDS ORDERED: MICONAZOLE NITRATE POWDER 43 GM EXT PRN (23:00)
[2017-10-12] VITALS: O2SAT 97
[2017-10-12] MEDS: OXYCODONE HCL IR 5 MG TAB (IMMEDIATE RELEASE) PO PRN ×3 (03:24→20:22)
[2017-10-12 05:59] LABS: BASO % 0.6 %; BASO ABS # 0.04 K/uL (0-0.2); EOS % 1.2 %; EOS ABS # 0.08 K/uL (0-0.5); HEMATOCRIT 33.4 % (37-47); HEMOGLOBIN 11.4 g/dL (12.0-16.0); IG# 0.02 K/uL (0.00-0.02); LYMPH % 19.7 %; MEAN CELL VOLUME 88.1 fL (80-100); MEAN CORPUSCULAR HEMOGLOBIN 30.1 pg (25-34); MEAN CORPUSCULAR HGB CONC 34.1 g/dl (32-36); MEAN PLATELET VOLUME 10.5 fL (7.4-10.4); MONO % 7.6 %; NEUT % 70.6 %; NEUT ABS # 4.67 K/uL (1.4-6.5); PLATELET COUNT 229 K/uL (130-400); RED CELL DISTRIBUTION WIDTH CV 12.9 % (11.5-14.5); RED CELL DISTRIBUTION WIDTH SD 41.3 fL (36.4-46.3); WHITE BLOOD COUNT 6.61 K/uL (4.8-10.8)
[2017-10-12] MEDS: LEVOTHYROXINE 25 MCG TAB PO SCH (06:12)
[2017-10-12 06:36] LABS: CALCIUM 8.9 mg/dl (8.5-10.1); CREATININE 0.96 mg/dl (0.60-1.20); POTASSIUM 3.8 mmol/L (3.5-5.1)
[2017-10-12] MEDS ORDERED: HYDROCHLOROTHIAZIDE 25 MG TAB PO SCH (08:00)
[2017-10-12 08:03] VITALS: BP 117/67; PULSE 74; TEMP 36.8; O2SAT 97
[2017-10-12] MEDS: ASPIRIN 81 MG ECTAB PO SCH (08:51)
[2017-10-12] MEDS: DOCUSATE SODIUM 100 MG CAP PO SCH ×2 (08:51→20:22)
[2017-10-12] MEDS: METOPROLOL SUCC 25MG EXT REL TAB PO SCH ×2 (08:51→20:24)
[2017-10-12] MEDS: LISINOPRIL 2.5 MG TAB PO SCH (08:52)
[2017-10-12] MEDS: PANTOprazole SOD 40 MG TAB PO SCH (08:52)
[2017-10-12] MEDS: MULTIVITAMIN TAB PO SCH (08:52)
[2017-10-12] MEDS: HEPARIN SOD 5000 UNIT/0.5 ML CARP SQ SCH ×2 (08:55→20:26)
[2017-10-12 11:30] VITALS: BP 126/74; PULSE 72; O2SAT 97
[2017-10-12] MEDS: POLYETHYLENE (MIRALAX) 17 GM PACK PO PRN (15:26)
[2017-10-12 16:00] VITALS: BP 160/78; PULSE 79; TEMP 36.9; O2SAT 97
--- NOTE | 2017-10-12 17:02 | Progress Note ---
Internal Med Progress Note Date of Service: Oct 12, 2017. Provider Documentation: SUBJECTIVE: Seen and examined at bedside States right hip pain is better Got physical therapy today Denies chest pain, SOB, dizziness, abd pain No other complaints OBJECTIVE: Vital Signs-as noted below Physical Exam: General Appearance:Moderately built and nourished, no apparent distress Head: normocephalic, Atraumatic Eyes: normal inspection, EOMI, PERRL Neck: supple, Trachea midline Respiratory/Chest: Normal breath sounds, CTA Cardiovascular: S1, S2, +systolic murmur Abdomen/GI:Soft, Non tender, Bowel sounds present Extremities/Musculoskelatal:normal inspection, chronic leg edema Neurologic/Psych: grossly no focal neurological deficits Skin: normal color, warm Lab data as noted below. ASSESSMENT & PLAN: Patient is a 67 yr female old female presents with right hip pain and ambulatory dysfunction Right Hip pain/Ambulatory Dysfunction: X-ray/CT scan: no acute fractures/subluxation PT/OT Pain control Patient prefers to be discharged home with home health DM II: Diet controlled Diabetic diet CKD III: Cr at baseline HTN: continue lisinopril, metoprolol Hypothyroidism: Continue levothyroxine Chronic Diastolic congestive heart failure Moderate aortic stenosis chronic lower extremity Edema: Venous doppler:No sonographic evidence of deep venous thrombosis Continue HCTZ GERD: continue PPI H/O third-degree heart block: S/P pacemaker DVT Px: Heparin SQ Code Status: DNR Disposition: environmental services specialist for discharge planning. Home with Home health Vs Rehab Plan to discharge tomorrow if stable Vital Signs: Date Time Temp Pulse Resp B/P (MAP) Pulse Ox O2 Delivery O2 Flow Rate FiO2 10/12/17 16:00 36.9 79 18 160/78 (105) 97 Room Air 10/12/17 16:00 Room Air 10/12/17 11:30 72 97 10/12/17 08:30 Room Air 10/12/17 08:03 36.8 74 18 117/67 (84) 97 Room Air 10/12/17 00:00 97 Room Air 10/11/17 20:50 36.5 87 20 144/81 97 Room Air 10/11/17 19:21 82 20 121/74 95 Room Air Lab Results: Results Past 24 Hours Test 10/11/17 20:19 10/12/17 05:26 Range/Units Bedside Glucose 139 70-90 mg/dl White Blood Count 6.61 4.8-10.8 K/uL Red Blood Count 3.79 4.2-5.4 M/uL Hemoglobin 11.4 12.0-16.0 g/dL Hematocrit 33.4 37-47 % Mean Corpuscular Volume 88.1 80-100 fL Mean Corpuscular Hemoglobin 30.1 25-34 pg Mean Corpuscular Hemoglobin Concent 34.1 32-36 g/dl Platelet Count 229 130-400 K/uL Mean Platelet Volume 10.5 7.4-10.4 fL Neutrophils (%) (Auto) 70.6 % Lymphocytes (%) (Auto) 19.7 % Monocytes (%) (Auto) 7.6 % Eosinophils (%) (Auto) 1.2 % Basophils (%) (Auto) 0.6 % Neutrophils # (Auto) 4.67 1.4-6.5 K/uL Lymphocytes # (Auto) 1.30 1.2-3.4 K/uL Monocytes # (Auto) 0.50 0.11-0.59 K/uL Eosinophils # (Auto) 0.08 0-0.5 K/uL Basophils # (Auto) 0.04 0-0.2 K/uL RDW Standard Deviation 41.3 36.4-46.3 fL RDW Coefficient of Variation 12.9 11.5-14.5 % Immature Granulocyte % (Auto) 0.3 % Immature Granulocyte # (Auto) 0.02 0.00-0.02 K/uL Sodium Level 138 136-145 mmol/L Potassium Level 3.8 3.5-5.1 mmol/L Chloride Level 101 98-107 mmol/L Carbon Dioxide Level 27 21-32 mmol/L Anion Gap 10.0 3-11 mmol/L Blood Urea Nitrogen 17 7-18 mg/dl Creatinine 0.96 0.60-1.20 mg/dl Est Creatinine Clear Calc Drug Dose 44.3 ml/min Estimated GFR () 62.5 Estimated GFR (Non- 53.9 BUN/Creatinine Ratio 17.4 10-20 Random Glucose 108 70-99 mg/dl Calcium Level 8.9 8.5-10.1 mg/dl Magnesium Level 1.7 1.8-2.4 mg/dl
[2017-10-12] MEDS ORDERED: MAGNESIUM SULFATE 1GM / D5W 1 GM in PREMIXED IN D5W 100 ML IV SCH (17:30)
[2017-10-12 20:15] VITALS: BP 163/93; PULSE 91
[2017-10-12 23:37] VITALS: BP 144/85; PULSE 95; TEMP 36.8; O2SAT 95
[2017-10-13] MEDS: LEVOTHYROXINE 25 MCG TAB PO SCH (05:48)
[2017-10-13 06:33] LABS: BASO % 0.5 %; BASO ABS # 0.03 K/uL (0-0.2); EOS % 1.1 %; EOS ABS # 0.07 K/uL (0-0.5); HEMATOCRIT 33.3 % (37-47); HEMOGLOBIN 11.7 g/dL (12.0-16.0); IG# 0.01 K/uL (0.00-0.02); LYMPH % 24.1 %; LYMPH ABS # 1.48 K/uL (1.2-3.4); MEAN CELL VOLUME 86.9 fL (80-100); MEAN CORPUSCULAR HEMOGLOBIN 30.5 pg (25-34); MEAN CORPUSCULAR HGB CONC 35.1 g/dl (32-36); MEAN PLATELET VOLUME 11.1 fL (7.4-10.4); MONO % 6.2 %; MONO ABS # 0.38 K/uL (0.11-0.59); NEUT % 67.9 %; NEUT ABS # 4.16 K/uL (1.4-6.5); PLATELET COUNT 210 K/uL (130-400); RED CELL DISTRIBUTION WIDTH CV 12.8 % (11.5-14.5); RED CELL DISTRIBUTION WIDTH SD 40.9 fL (36.4-46.3); WHITE BLOOD COUNT 6.13 K/uL (4.8-10.8)
[2017-10-13 07:12] LABS: CALCIUM 9.1 mg/dl (8.5-10.1); CREATININE 1.13 mg/dl (0.60-1.20); POTASSIUM 3.7 mmol/L (3.5-5.1)
[2017-10-13 08:03] VITALS: BP 143/80; PULSE 70; TEMP 36.5; O2SAT 95
[2017-10-13] MEDS: METOPROLOL SUCC 25MG EXT REL TAB PO SCH (08:12)
[2017-10-13] MEDS: MULTIVITAMIN TAB PO SCH (08:12)
[2017-10-13] MEDS: LISINOPRIL 2.5 MG TAB PO SCH (08:12)
[2017-10-13] MEDS: DOCUSATE SODIUM 100 MG CAP PO SCH (08:12)
[2017-10-13] MEDS: PANTOprazole SOD 40 MG TAB PO SCH (08:13)
[2017-10-13] MEDS: ASPIRIN 81 MG ECTAB PO SCH (08:13)
[2017-10-13] MEDS: OXYCODONE HCL IR 5 MG TAB (IMMEDIATE RELEASE) PO PRN (08:17)
[2017-10-13] MEDS: POLYETHYLENE (MIRALAX) 17 GM PACK PO PRN (08:17)
[2017-10-13] MEDS: HEPARIN SOD 5000 UNIT/0.5 ML CARP SQ SCH (08:23)
--- NOTE | 2017-10-13 09:45 | Progress Note ---
Internal Med Progress Note Date of Service: Oct 13, 2017. Provider Documentation: SUBJECTIVE: Seen and examined at bedside States right hip pain has much improved No new complaints Denies chest pain, SOB, dizziness, abd pain No other complaints Eager to get discharged OBJECTIVE: Vital Signs-as noted below Physical Exam: General Appearance:Moderately built and nourished, no apparent distress Head: normocephalic, Atraumatic Eyes: normal inspection, EOMI, PERRL Neck: supple, Trachea midline Respiratory/Chest: Normal breath sounds, CTA Cardiovascular: S1, S2, +systolic murmur Abdomen/GI:Soft, Non tender, Bowel sounds present Extremities/Musculoskelatal:normal inspection, chronic leg edema Neurologic/Psych: grossly no focal neurological deficits Skin: normal color, warm Lab data as noted below. ASSESSMENT & PLAN: Patient is a 67 yr female old female presents with right hip pain and ambulatory dysfunction Right Hip pain/Ambulatory Dysfunction: X-ray/CT scan: no acute fractures/subluxation PT/OT Pain control Patient prefers to be discharged home with home health Hypomagnesemia: Resolved DM II: Diet controlled Diabetic diet CKD III: Cr at baseline HTN: continue lisinopril, metoprolol Hypothyroidism: Continue levothyroxine Chronic Diastolic congestive heart failure Moderate aortic stenosis chronic lower extremity Edema: Venous doppler:No sonographic evidence of deep venous thrombosis Continue HCTZ GERD: continue PPI H/O third-degree heart block: S/P pacemaker DVT Px: Heparin SQ Code Status: DNR Disposition: Patient prefers to be discharged home with Home PT Plan to discharge home today Follow up with your primary care doctor on 10/16/17 at 12:45pm Seek immediate medical attention if your symptoms reoccur or worsen Vital Signs: Date Time Temp Pulse Resp B/P (MAP) Pulse Ox O2 Delivery O2 Flow Rate FiO2 10/13/17 08:03 36.5 70 17 143/80 (101) 95 10/13/17 00:00 Room Air 10/12/17 23:37 36.8 95 16 144/85 (104) 95 Room Air 10/12/17 20:15 91 163/93 (116) 10/12/17 16:00 36.9 79 18 160/78 (105) 97 Room Air 10/12/17 16:00 Room Air 10/12/17 11:30 72 97 Lab Results: Results Past 24 Hours Test 1/23/18 05:45 Range/Units White Blood Count 6.13 4.8-10.8 K/uL Red Blood Count 3.83 4.2-5.4 M/uL Hemoglobin 11.7 12.0-16.0 g/dL Hematocrit 33.3 37-47 % Mean Corpuscular Volume 86.9 80-100 fL Mean Corpuscular Hemoglobin 30.5 25-34 pg Mean Corpuscular Hemoglobin Concent 35.1 32-36 g/dl Platelet Count 210 130-400 K/uL Mean Platelet Volume 11.1 7.4-10.4 fL Neutrophils (%) (Auto) 67.9 % Lymphocytes (%) (Auto) 24.1 % Monocytes (%) (Auto) 6.2 % Eosinophils (%) (Auto) 1.1 % Basophils (%) (Auto) 0.5 % Neutrophils # (Auto) 4.16 1.4-6.5 K/uL Lymphocytes # (Auto) 1.48 1.2-3.4 K/uL Monocytes # (Auto) 0.38 0.11-0.59 K/uL Eosinophils # (Auto) 0.07 0-0.5 K/uL Basophils # (Auto) 0.03 0-0.2 K/uL RDW Standard Deviation 40.9 36.4-46.3 fL RDW Coefficient of Variation 12.8 11.5-14.5 % Immature Granulocyte % (Auto) 0.2 % Immature Granulocyte # (Auto) 0.01 0.00-0.02 K/uL Sodium Level 133 136-145 mmol/L Potassium Level 3.7 3.5-5.1 mmol/L Chloride Level 99 98-107 mmol/L Carbon Dioxide Level 27 21-32 mmol/L Anion Gap 7.0 3-11 mmol/L Blood Urea Nitrogen 26 7-18 mg/dl Creatinine 1.13 0.60-1.20 mg/dl Est Creatinine Clear Calc Drug Dose 37.6 ml/min Estimated GFR () 51.3 Estimated GFR (Non- 44.3 BUN/Creatinine Ratio 23.2 10-20 Random Glucose 110 70-99 mg/dl Calcium Level 9.1 8.5-10.1 mg/dl Magnesium Level 1.9 1.8-2.4 mg/dl
--- NOTE | 2017-10-13 09:53 | Discharge Summary ---
Discharge Summary Date of Service Oct 13, 2017. Discharge Summary Admission Date: Oct 11, 2017 at 18:47 Discharge Date: Oct 13, 2017 Discharge Disposition: Home with services Principal Diagnosis: Right Hip Pain Procedures: Hip CT: 1. Moderate to severe degenerative changes of the right femoral acetabular joint with chondrocalcinosis. No acute fracture or subluxation. 2. Myositis ossifications involves the myotendinous distribution of the distal gluteus lawson insertion site about the proximal right femur and also within the proximal hamstring musculature adjacent to the ischial tuberosity. 3. Mild wall thickening of the urinary bladder, likely secondary to partial distention. 4. Colonic diverticulosis. Lumbar CT: 1. No acute fracture within the lumbar spine. 2. Mild levoscoliosis with advanced multilevel degenerative changes of the lumbar spine redemonstrated as above. 3. Unchanged grade 1 anterolisthesis L4 on L5 likely secondary to long-standing facet arthropathy. Venous Doppler: No sonographic evidence of deep venous thrombosis Consultations: None Pending Studies/Follow-Up: Follow up with your primary care doctor on 10/16/17 at 12:45pm Seek immediate medical attention if your symptoms reoccur or worsen Medication Reconciliation Continued Medications: Aspirin (Aspirin Ec) 81 Mg Tab 81 MG PO DAILY Docusate Sodium (Colace) 100 Mg Cap 1 CAP PO BID, CAP Hydrochlorothiazide (Hctz) 25 Mg Tab 25 MG PO 3XWK, TAB TAKES MON, WED, & FRI. Levothyroxine Sodium (Levothyroxine Sodium) 25 Mcg Tab 25 MCG PO QAM Lisinopril (Lisinopril) 5 Mg Tab 2.5 MG PO DAILY, #30 Metoprolol Succinate (Toprol Xl) 25 Mg Tabcr 12.5 MG PO BID, #30 TAB Multivitamin (Multivitamin) Tab 1 TAB PO QAM, 0 Refills Omeprazole (Omeprazole) 20 Mg Tab 20 MG PO DAILY for 90 Days, #90 TAB 3 Refills Oxycodone Immediate Rel Tab (Roxicodone Ir) 5 Mg Tab 2 TAB PO Q4 PRN for Pain, #1 Polyethylene Glycol 3350 (Miralax) 1 Pow Pow 17 GM PO DAILY PRN for prn, GM Admission Information HPI (per Admitting provider): CHIEF COMPLAINT: Right hip pain, knee pain and ambulatory dysfunction. HISTORY OF PRESENT ILLNESS: This is an 87-year-old female with past medical history significant for diet-controlled diabetes, chronic kidney disease stage III, third-degree heart block status post pacemaker, trochanteric bursitis of right hip, hyperlipidemia, hypothyroidism, aortic wall stenosis, presents with ongoing pain in the right hip radiated down to the knees. The patient's pain is getting worse since last 1 month, not getting better and not able to ambulate because of the pain. Daughter brought her into the ER and ER physician tried to discharge the patient but daughter does not want to take her back home. The patient otherwise denies any other complaints except for this pain. Denies any headaches, no dizziness, no blurred vision, no sore throat, no runny nose, no difficulty swallowing. No earache. No chest pain, no shortness of breath, no cough, no nausea, no vomiting, no abdominal pain. Normal bowel and bladder movements. No blood in the stools, no blood in the urine. No burning micturition. She has chronic swelling in the lower extremities. Appetite is okay. Physical Exam (per Admitting): PHYSICAL EXAMINATION: GENERAL: The patient is old and frail, not in distress. VITAL SIGNS: Temperature 36.8, pulse 75, respiratory rate 20, blood pressure 115/83, oxygen 100% on room air. HEENT: No pallor, no icterus. Pupils equal, round react to light. NECK: No JVD, no neck masses, no carotid bruits. CARDIOVASCULAR: S1, S2 heard, regular rate and rhythm, ESM murmur, no gallop. RESPIRATORY SYSTEM: Clear to auscultation bilaterally. No wheezing, no crackles. ABDOMEN: Soft, bowel sounds present. Nontender. No distention. CENTRAL NERVOUS SYSTEM: Cranial nerves II-XII grossly intact. Nonfocal. EXTREMITIES: Chronic lower extremity edema present. Hospital Course Patient is a 67 yr female old female presents with right hip pain and ambulatory dysfunction Right Hip pain/Ambulatory Dysfunction: X-ray/CT scan: no acute fractures/subluxation PT/OT Pain control Patient prefers to be discharged home with home health Hypomagnesemia: Resolved DM II: Diet controlled Diabetic diet CKD III: Cr at baseline HTN: continue lisinopril, metoprolol Hypothyroidism: Continue levothyroxine Chronic Diastolic congestive heart failure Moderate aortic stenosis chronic lower extremity Edema: Venous doppler:No sonographic evidence of deep venous thrombosis Continue HCTZ GERD: continue PPI H/O third-degree heart block: S/P pacemaker DVT Px: Heparin SQ Code Status: DNR Disposition: Patient prefers to be discharged home with Home PT Plan to discharge home today Follow up with your primary care doctor on 10/16/17 at 12:45pm Seek immediate medical attention if your symptoms reoccur or worsen Total time spent on discharge = 33 minutes This includes examination of the patient, discharge planning, medication reconciliation, and communication with other providers. Discharge Instructions Discharge Instructions Date of Service Oct 13, 2017. Admission Reason for Admission: Ambulatory Dysfunction; Right Leg Pain Discharge Discharge Diagnosis / Problem: Right Hip Pain Discharge Goals Goal(s): Decrease discomfort, Improve function Activity Recommendations Activity Limitations: resume your previous activity Exercise/Sports Limitations: as tolerated . Instructions / Follow-Up Instructions / Follow-Up Follow up with your primary care doctor on 10/16/17 at 12:45pm Seek immediate medical attention if your symptoms reoccur or worsen Current Hospital Diet Patient's current hospital diet: Regular Diet, Diabetes Type 2 Diet, AHA Diet ( Heart Healthy) Discharge Diet Recommended Diet: AHA Diet (Heart Healthy), Diabetes Type 2 Diet Pending Studies Studies pending at discharge: no Laboratory Results Hemoglobin A1c Test 08/30/17 05:35 Range/Units Estimated Average Glucose 146 mg/dl Hemoglobin A1c 6.7 H 4.5-5.6 % Medical Emergencies . Who to Call and When: Medical Emergencies: If at any time you feel your situation is an emergency, please call 911 immediately. . Non-Emergent Contact Non-Emergency issues call your: Primary Care Provider Call Non-Emergent contact if: you have a fever, your pain is not controlled, your pain is worsening, your pain is unusual for you, your pain is concerning you, you have any medication questions Seek immediate medical attention if your symptoms reoccur or worsen . . "Provider Documentation" section prepared by Nasir Buckner. . VTE Core Measure Inpt VTE Proph given/why not?: Unfractionated heparin SQ
[2017-10-13 10:24] VITALS: BP 143/80; PULSE 70; TEMP 36.5; O2SAT 95
== END 2017-10-13 11:23 | disposition home health service (06) | DRG 556 ==
LOC: EDBD 12:50 → C.EDB 12:52 → C.4E 18:47 → ENRESERV 19:27
PROVIDERS: ADMIT Internal Medicine; ATTEND Internal Medicine
DX: M25.551 Pain in right hip (principal); I50.32 Chronic diastolic (congestive) heart failure; I13.0 Hypertensive heart and chronic kidney disease with heart failure and stage 1 through stage 4 chronic kidney disease, or unspecified chronic kidney disease; M70.61 Trochanteric bursitis, right hip; M17.11 Unilateral primary osteoarthritis, right knee; R26.2 Difficulty in walking, not elsewhere classified; E83.42 Hypomagnesemia; I35.0 Nonrheumatic aortic (valve) stenosis; E11.22 Type 2 diabetes mellitus with diabetic chronic kidney disease; N18.3 Chronic kidney disease, stage 3 (moderate); K21.9 Gastro-esophageal reflux disease without esophagitis; E78.5 Hyperlipidemia, unspecified; E03.9 Hypothyroidism, unspecified; Z66 Do not resuscitate; Z96.653 Presence of artificial knee joint, bilateral; Z95.0 Presence of cardiac pacemaker; Z87.891 Personal history of nicotine dependence; Z79.82 Long term (current) use of aspirin; Z79.899 Other long term (current) drug therapy

== ENCOUNTER 2019-05-30 23:12 | Inpatient (IN) ==
--- OUTSIDE RECORDS SUMMARY | 2019-05-30 23:15 | External Medical Summary | Continuity of Care Document ---
:1930 Author Name Flaco Myers Address Unavailable Unavailable , Care Team Providers Name Role Phone Shawanda Brizuela PA-C Unavailable [email or web address] Unavailable Unavailable Problems Active medical history not documented Allergies and Adverse Reactions Allergy history not documented Medications Medications not documented Procedures Procedures not documented Immunizations Immunizations not documented Plan of Treatment Planned Observations Planned Goals not documented Results No Known Results Results not documented
[2019-05-31 00:26] LABS: Basophils # (auto) 0.05 K/uL (0-0.2); Basophils % (auto) 0.4 %; Eosinophils # (auto) 0.05 K/uL (0-0.5); Eosinophils % (auto) 0.4 %; Hematocrit (blood only) 42.5 % (37-47); Hemoglobin 15.3 g/dL (12.0-16.0); Immature Granulocytes # (auto) 0.06 K/uL (0.00-0.02); Immature Granulocytes % (auto) 0.5 %; Lymphocytes # (auto) 2.16 K/uL (1.2-3.4); Lymphocytes % (auto) 18.2 %; Mean Corpuscular Volume 86.2 fL (80-100); Mean Platelet Volume 11.1 fL (7.4-10.4); Monocytes # (auto) 0.62 K/uL (0.11-0.59); Monocytes % (auto) 5.2 %; Neutrophils # (auto) 8.93 K/uL (1.4-6.5); Neutrophils % (auto) 75.3 %; Platelet Count 216 K/uL (130-400); RDW Coefficient of Variation 13.3 % (11.5-14.5); Red Blood Count 4.93 M/uL (4.2-5.4); White Blood Count 11.87 K/uL (4.8-10.8)
[2019-05-31 00:44] LABS: BUN Creatinine Ratio 11.1 (10-20); Blood Urea Nitrogen 10 mg/dl (7-18); Calcium 9.3 mg/dl (8.5-10.1); Carbon Dioxide 30 mmol/L (21-32); Chloride 91 mmol/L (98-107); Est GFR (African American) 63.7; Est GFR (Non-African American) 54.9; Glucose 132 mg/dl (70-99); Magnesium 1.5 mg/dl (1.8-2.4); Potassium 3.6 mmol/L (3.5-5.1); Sodium 132 mmol/L (136-145)
[2019-05-31 01:05] LABS: Appearance Urine Clear (Clear); Bacteria Urine Automated 3+ (Negative); Bilirubin Urine Negative (Negative); Blood Urine Negative (Negative); Cast Urine Automated 0 /lpf (0-5); Color Urine Yellow; Epithelial Cell Urine Auto >30 /lpf (0-5); Glucose Urine UA Negative (Negative); Ketones Urine Trace (Negative); Leukocyte Esterase Urine Negative (Negative); Nitrite Urine Positive (Negative); RBC Urine Automated 0-4 /hpf (0-4); Specific Gravity Urine 1.013 (1.000-1.030); Urobilinogen Urine Negative (Negative); pH Urine 7.5 (4.5-7.5)
[2019-05-31] MEDS ORDERED: MAGNESIUM SULFATE / D5W 1 GM/100 ML BAG IV ONE (01:05)
[2019-05-31 01:25] LABS: Protein Urine Negative (Negative)
[2019-05-31] MEDS ORDERED: cefTRIAXone SODIUM 1,000 MG/50 ML BAG IV STA (01:55)
[2019-05-31] MEDS ORDERED: OXYCODONE HCL IR 5 MG TAB (IMMEDIATE RELEASE) PO PRN (03:15)
[2019-05-31] MEDS ORDERED: ONDANSETRON INJ 2 MG/ML 2 ML VIAL IV PRN (03:15)
[2019-05-31] MEDS ORDERED: POLYETHYLENE (MIRALAX) 17 GM PACK PO PRN (03:15)
[2019-05-31] MEDS ORDERED: ACETAMINOPHEN 325 MG TAB PO PRN ×2 (03:15→07:25)
--- NOTE | 2019-05-31 04:30 | Emergency Department Note ---
Entered by Giancarlo Ramirez acting as a scribe for ED Provider Note Name: Melanie Martines Age: 88, female Arrives Via: EMS Informant: EMS, patient CC: Fall HPI: The patient is an 88 year old female who presents to the emergency department with complaints of a fall occurring today. Per EMS, the patient was using her walker today when she fell. EMS states that the patient did not hit her head. EMS notes that the patients daughter was too drunk to bring her to the hospital. The patient complains of a headache, arm pain, and leg pain. She denies any CP and abdominal pain. HPI limited secondary to dementia. ROS: ROS limited secondary to dementia. Past Medical History: CKD, Diabetes II, Hypothyroidism, GERD, HTN, dyslipidemia, dementia Past Surgical History: Appendectomy, right knee joint replacement Family History: None Social History: Former smoker, denies alcohol use Home Medications: Please see medication list Allergies: None Physical: Vitals: Pulse 100, Resp 16, Temp 98.4 F, O2 Sat 98 Exam: GENERAL: Patient is elderly and demented appearing and in no acute distress, answering yes to every question. EYES: No scleral icterus, unremarkable pupils. ENT: Mucous membranes moist, no nasal congestion. NECK: No masses appreciated, no meningismus, trachea is midline. RESPIRATORY: No dyspnea. Clear to auscultation and equal bilaterally. No wheeze, no rhonchi. CARDIOVASCULAR: Regular rate and rhythm. No murmurs, rubs, gallops appreciated. GASTROINTESTINAL: Abdomen soft, non-tender, no peritonitis. Bowel sounds positive. No masses appreciated. BACK: No midline tenderness, no CVA tenderness EXTREMITIES: Normal motion all extremities, no cyanosis, no edema. NEUROLOGIC: No acute motor or sensory deficits, no focal weakness, cranial nerves grossly intact, demented but talkative. SKIN: No rash, no jaundice, no diaphoresis. ED Course: Prior Medical Record, Triage/Nursing Notes, Medications, Allergies reviewed by Me 2320: The patient was evaluated in room B7. A complete history and physical exam was performed. 2336: I reevaluated and updated the patient. Her daughter is at bedside. She is visually intoxicated and smells of alcohol. She admits to drinking tonight. We discussed my concerns of her driving while drinking, and she states that she does not usually do that. She notes that the patient is too demented for her to care for anymore. She is afraid that the patient will be injured if she goes home. She requests that the patient be admitted or placed into a residential, as she states that she can no longer take care of the patient. I asked nursing to place an IV and obtain labs. 0101: Upon reevaluation, the patient is stable. I discussed the findings and the treatment plan with the patient. She expresses agreement and understanding. I spoke with Dr. Ugarte of the [facility]. The patient will be evaluated for further management. 0115: I reevaluated the patient. Her daughter is aware that the patient will be brought into the hospital. I told the patient's daughter that she appears intoxicated and smells of alcohol. She does not appear fit to be driving. She tells me that I am wrong and that she is just tired. I made it clear to her that she could harm herself and others. I suspected that she would be arrested for a DUI if police pulled her over. She argues the opposite. Vital Signs: reviewed and remarkable for HTN Labs: Reviewed and remarkable for hypomag, uti Interventions: saline lock, mag 1 g IV, Rocephin 1 g IV Imaging: X ray results are stated below per my interpretation: Chest: 1 view: No infiltrate, no effusion, normal cardiac border. Pelvis: 1 view: no fracture, no dislocation, arthritis noted CT HEAD: No comparisons. No acute intracranial hemorrhage, transcortical infarction or mass. Mild diffuse cerebral atrophy for age. Bilateral perivascular and subcortical white matter low attenuation compatible with chronic small vessel ischemic disease. No acute skull fractures. Visualized sinuses and mastoid air cells are clear. Status post remote bilateral cataract eye surgery. Radiologist: Vj Escalona MD. CT C SPINE: No comparisons. Reversal of cervical lordosis centered at C4-C5. No acute cervical spine fracture. Minimal C7-T1 anterolisthesis. Osseous fusion of the C2-C3 and C3-C4 vertebral bodies across the intervertebral disc space and facets. Severe C4-C5 and C5-C6 disc degeneration. Bilateral uncovertebral osteophytes. Mild spinal stenosis at C4-C5 and C5-C6 with severe bilateral neural foraminal narrowing. Mild bilateral cervical facet arthopathy. Mild disc degeneration at C6-C7 with at least mild spinal stenosis. Bilateral uncovertebral osteophytes. Moderate left and mild right neural foraminal narrowing. Severe right C-7-T1 cervical facet arthropathy. Atlantodental osteoarthritis with calcified annulus causing mild narrowing of the spinal canal at the C1-C2 level. No paraspinous hematoma. No prevertebral soft tissue swelling. Severe atherosclerotic calcification of the bilateral carotid bifurcations. Radiologist: Vj Escalona MD. Consults: 0101: I reviewed the patient's case with Dr. [facility]garte [email or web address]. He will evaluate the patient for further management. Blood pressure: Elevated - Will be monitored by hospitalist Disposition: Hospitalization Prescriptions: None. Differentials: Intracranial hemorrhage, cervical fracture, chest injury, and pelvis injury amongst other pathologies. Medical Decision Makin yr old demented patient arrives for evaluation following a fall at home. She is weak and clearly has dementia. Daughter eventually arrived and notes patient can no longer stay with her given confusion and weakness. Work up with hypomag and UTI which were started treatment here. CT head/cspine negative. CXR/Pelv xrays OK. Labs otherwise OK. She is moderately hypertensive though suspect a bit worked up being in hospital. She will be brought in to hospitalist service for further management and placement. Of note, daughter is visibly intoxicated and smells of alcohol, as well as admitting she was drinking. She is however, awake, alert and oriented. I pleaded with her not to drive home and to either stay here longer or to take taxi. I made it clear that I would be concerned she would be driving under the influence if she drove home. She refuses this and left department. Impression: Fall, weakness, dementia, hypomagnesemia, UTI Gabino Montgomery MD The scribe's documentation has been prepared under my direction and personally reviewed by me in its entirety. I confirm that the note above accurately reflects all work, treatment, procedures, and medical decision making performed by me. 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" Moderate aortic stenosis (Chronic) "by echo 01/2017" GERD (gastroesophageal reflux disease) (Chronic) HTN (hypertension) (Chronic) Dyslipidemia (Chronic) History of pacemaker (Chronic) Dementia Surgical History Hx of total knee arthroplasty (Resolved) "L TKA 2009" History of appendectomy (Resolved) H/O cataract removal with insertion of prosthetic lens (Resolved) History of right knee joint replacement (Chronic) Family History Other Family history non-contributory Social History Feels Safe at Home: Yes Smoking Status: Unknown if ever smoked Hx Alcohol Use: No Results & Data Vital Signs Vital Signs - 24 hr 05/30/19 23:16 05/31/19 01:29 05/31/19 01:30 Temperature 36.9 C 37.5 C Temperature Source Oral Oral Sepsis Recent Fever Within 48 Hours No Sepsis Action Taken by Nursing No Action Required Pulse Rate 100 H Pulse Rate [Right Finger] 88 Respiratory Rate 16 Blood Pressure [Right Arm] 160/110 H 170/105 H Blood Pressure Mean [Right Arm] 126 126 Pulse Oximetry 98 96 Oxygen Delivery Method Room Air Home Medications Current Medication List: was personally reviewed by me Laboratory Data Attestation: I reviewed the patient's lab results. Result diagrams: 05/31/19 00:10 05/31/19 00:10 Lab Results 05/31/19 05/31/19 05/31/19 Range/Units 00:10 00:10 00:55 WBC 11.87 H (4.8-10.8) K/uL RBC 4.93 (4.2-5.4) M/uL Hgb 15.3 (12.0-16.0) g/dL Hct 42.5 (37-47) % MCV 86.2 (80-100) fL MCH 31.0 (25-34) pg MCHC 36.0 (32-36) g/dL RDW Std Deviation 42.0 (36.4-46.3) fL RDW Coeff of Leatha 13.3 (11.5-14.5) % Plt Count 216 (130-400) K/uL MPV 11.1 H (7.4-10.4) fL Immature Gran % (Auto) 0.5 % Neut % (Auto) 75.3 % Lymph % (Auto) 18.2 % [place]ston % (Auto) 5.2 % Eos % (Auto) 0.4 % Baso % (Auto) 0.4 % Immature Gran # (Auto) 0.06 H (0.00-0.02) K/uL Neut # (Auto) 8.93 H (1.4-6.5) K/uL Lymph # (Auto) 2.16 (1.2-3.4) K/uL Livingston # (Auto) 0.62 H (0.11-0.59) K/uL Eos # (Auto) 0.05 (0-0.5) K/uL Baso # (Auto) 0.05 (0-0.2) K/uL Sodium 132 L (136-145) mmol/L Potassium 3.6 (3.5-5.1) mmol/L Chloride 91 L (98-107) mmol/L Carbon Dioxide 30 (21-32) mmol/L Anion Gap 11.0 (3-11) BUN 10 (7-18) mg/dl Creatinine 0.94 (0.6-1.2) mg/dl Est Cr Clr Drug Dosing Not Reportable Est GFR ( Amer) 63.7 Est GFR (Non-Af Amer) 54.9 BUN/Creatinine Ratio 11.1 (10-20) Glucose 132 H (70-99) mg/dl Calcium 9.3 (8.5-10.1) mg/dl Magnesium 1.5 L (1.8-2.4) mg/dl TSH 1.800 (0.300-4.500) uIu/ml Urine Color Yellow Urine Appearance Clear (Clear) Urine pH 7.5 (4.5-7.5) Ur Specific [place]sworth 1.013 (1.000-1.030) Urine Protein Negative (Negative) Urine Glucose (UA) Negative (Negative) Urine Ketones Trace H (Negative) Urine Blood Negative (Negative) Urine Nitrite Positive A (Negative) Urine Bilirubin Negative (Negative) Urine Urobilinogen Negative (Negative) Ur Leukocyte Esterase Negative (Negative) Urine WBC (Auto) 5-10 H (0-5) /hpf Urine RBC (Auto) 0-4 (0-4) /hpf U Hyaline Cast (Auto) 0 (0-5) /lpf U Epithel Cells (Auto) >30 H (0-5) /lpf Urine Bacteria (Auto) 3+ H (Negative) Administered Medications Discontinued Medications Magnesium Sulfate/Dextrose (Magnesium Sulfate / D5w) 1 gm in 100 mls @ 100 mls/hr IV ONE ONE Stop: 05/31/19 02:04 Last Infusion: 05/31/19 02:54 Dose: 0 mls/hr Documented by: [id number] Admin: 05/31/19 01:38 Dose: 100 mls/hr Documented by: [id number] Ceftriaxone Sodium (Rocephin) 1,000 mg in 50 mls @ 100 mls/hr IV NOW STA Stop: 05/31/19 02:24 Last Infusion: 05/31/19 03:30 Dose: 0 mls/hr Documented by: [id number] Admin: 05/31/19 02:54 Dose: 100 mls/hr Documented by: [id number] Blood Pressure Blood Pressure Findings: Elevated blood pressure Blood Pressure Disposition: further management by hospitalist Discharge Plan Visit Data *Final* Discharge Date/Time: 05/31/19 02:30 Chief Complaint: Fall Stated Complaint: FALL ED Provider: Gabino Montgomery Discharge Problem: Fall, Weakness, Dementia, Hypomagnesemia, UTI (urinary tract infection) Patient Disposition: Admitted As Inpatient Discharge Instructions Interventions: ED Discharge Assessment Last Done: 05/31/19 02:30 Discharge Problem: Fall Qualifiers: Encounter type: initial encounter Qualified Code(s): W19.XXXA - Unspecified fall, initial encounter Dementia Qualifiers: Dementia type: unspecified type Dementia behavioral disturbance: without behavioral disturbance Qualified Code(s): F03.90 - Unspecified dementia without behavioral disturbance UTI (urinary tract infection) Qualifiers: Urinary tract infection type: site unspecified Hematuria presence: without hematuria Qualified Code(s): N39.0 - Urinary tract infection, site not specified The scribe's documentation has been prepared under my direction and personally reviewed by me in its entirety. I confirm that the note above accurately reflects all work, treatment, procedures, and medical decision making performed by me.
--- NOTE | 2019-05-31 04:40 | History and Physical Report ---
DATE OF ADMISSION: 05/31/2019 CHIEF COMPLAINT: Fall. HISTORY OF PRESENT ILLNESS: This is an 88-year-old female with past medical history significant for diet-controlled diabetes, hyperlipidemia, moderate aortic stenosis, complete heart block status post pacemaker, chronic kidney disease stage III, history of trochanteric bursitis of right hip, arthritis of both hips, lumbar degenerative disc disease, who lives with her daughter's house, was brought in because of fall. The patient has dementia, oriented to name only, can tell her date of . She thinks she walks without any help, but at home apparently, she walks with a walker and she tripped and fell, but she did not hit her head and she was brought in here. Imaging studies were unremarkable, will follow official reports.. Daughter wanted her to be placed in [place]. The patient is alert and awake , when asked questions, she tells she has some mild headache, mild nausea. Denies any chest pain. Denies shortness of breath. Denies cough. No fever, no chills. She states she moved her bowels yesterday and had normal bladder movements. No fever. Currently resting comfortably and hemodynamically stable. ALLERGIES: No known drug allergies. PAST MEDICAL HISTORY: As mentioned above. PAST SURGICAL HISTORY: Left total knee arthroplasty, colonoscopy, EGD with biopsy, EGD with endoscopic ultrasound, pacemaker placement, appendectomy, right cataract surgery, right total knee arthroplasty. MEDICATIONS: The patient is on oxycodone IR 50 mg p.o. q. 4 times a day, Toprol-XL 12.5 mg p.o. daily, Exelon 1.5 mg p.o. b.i.d., levothyroxine 25 mcg p.o. daily, Prilosec 20 mg p.o. daily, hydrochlorothiazide 25 mg 3 times a week, MiraLax 17 grams daily, Senokot 1 tablet p.o. daily p.r.n., aspirin 81 mg p.o. daily, Tylenol 1000 mg every 8 hours p.r.n., multivitamins daily. FAMILY HISTORY: Significant for: Daughter had ovarian and lung cancer. Paternal grandmother had diabetes. SOCIAL HISTORY: Currently living with her daughter. Former smoker, quit 25 years ago. Alcohol occasional. No drug use. REVIEW OF SYMPTOMS: As per HPI. Rest of review of systems is negative. PHYSICAL EXAMINATION: GENERAL: The patient is old and frail, not in acute distress. VITAL SIGNS: Temperature 37.5, pulse 88, respiratory rate 16, blood pressure 170/105, oxygen 96% room air. HEENT: No pallor, no icterus. Pupils equal, round, reactive to light. NECK: No JVD, no neck masses, no carotid bruits. CARDIOVASCULAR: S1, S2 heard. Ejection systolic murmur heard. Regular rate and rhythm. RESPIRATORY SYSTEM: Normal AP diameter. No accessory muscle use. No wheezing, no crackles. ABDOMEN: Soft, bowel sounds present. Mild abdominal discomfort. No guarding. No rigidity. CENTRAL NERVOUS SYSTEM: Alert and awake, oriented to name only, can tell her date of . Nonfocal. EXTREMITIES: +1 pedal edema present, no erythema. LABORATORY DATA: WBC 11.8, hemoglobin 15.3, hematocrit 42.5, platelets 216. Sodium 132, potassium 3.6, chloride 91, bicarbonate 20, BUN 11, creatinine 0.9, BUN 10, creatinine 0.9, serum glucose 132, calcium 9.3, magnesium 1.5. TSH 1.8. Urinalysis, trace leukocyte esterase, nitrite positive. ASSESSMENT AND PLAN: This is an 88-year-old female with a history of dementia, presents with a fall. 1. Fall, she tripped on the walker and fell. Lives with her daughter. Daughter wanted her to place in [facility]. The patient has dementia. We will get PT, OT. Social Service to help with discharge planning. 2. History of hypertension. Continue her home medication of Toprol-XL, hydrochlorothiazide. We will monitor the blood pressure. 3. Dementia. Continue Exelon. Monitor for any delirium. 4. Hypothyroidism. Continue Synthroid. 5. Gastroesophageal reflux disease. Continue PPI. 6. Osteoarthritis. Continue her home pain medications. 7. Possible urinary tract infection, on Rocephin. Follow the cultures. 8. Deep vein thrombosis prophylaxis, SCDs and heparin subcutaneously. 9. Disposition: Admit to medical floor. PT and OT prior to discharge. Social Service to help with discharge planning. The patient may need placement. [facility]
[2019-05-31] MEDS: LEVOTHYROXINE SODIUM 25 MCG TABLET PO SCH (06:04)
[2019-05-31] MEDS ORDERED: MICONAZOLE NITRATE POWDER 43 GM EXT PRN (06:10)
--- NOTE | 2019-05-31 06:59 | XRay Report ---
XR chest 1V portable CLINICAL HISTORY: 88 years-old Female presenting with fall/trauma. TECHNIQUE: Portable upright AP view of the chest was obtained. COMPARISON: 06/26/2016. FINDINGS: Left subclavian pacer with leads in the right atrium and right ventricular apex. Atherosclerosis of t he aortic arch. Cardiac silhouette mildly enlarged allowing for positioning. No focal opacity. No lar ge effusion or pneumothorax. Osteopenia suspected. Advanced degenerative changes of the shoulders ghazal aterally. Upper abdomen normal. IMPRESSION: 1. Cardiomegaly. No other convincing evidence of acute cardiopulmonary disease. 2. Osteopenia. Allowing for this, no gross evidence of acute osseous injury. Electronically signed by: Jaya Felder M.D. 05/31/2019 6:58 AM
--- NOTE | 2019-05-31 07:09 | XRay Report ---
XR pelvis 1-2V routine CLINICAL HISTORY: 88 years-old Female presenting with fall/trauma. TECHNIQUE: Single frontal view of the pelvis was obtained. COMPARISON: 10/11/2017. FINDINGS: Basicervical fracture of the right femoral neck suspected. Severe osteopenia. This complicates evalua tion. Degenerative changes of the hips. Advanced degenerative changes of the lower lumbar spine. Bony pelvis grossly intact. Atherosclerosis. No radiographic soft tissue abnormality. IMPRESSION: Findings highly concerning for a basicervical right femoral neck fracture. The report will be called/faxed according to standard departmental protocol. Electronically signed by: Jaya Felder M.D. 05/31/2019 7:07 AM
--- NOTE | 2019-05-31 07:11 | CT Scan Report ---
CT SCAN OF THE CERVICAL SPINE CLINICAL HISTORY: Fall. COMPARISON STUDY: No priors. TECHNIQUE: CT scan of the cervical spine is performed from the skull base to the upper thoracic spine . Images are reviewed in the axial, sagittal, and coronal planes. IV contrast was not administered fo r this examination. A dose lowering technique was utilized adhering to the principles of ALARA. CT DOSE: 1493.52 mGy.cm FINDINGS: Skeletal structures: The skeletal structures are osteopenic. There is no evidence of fracture or subl uxation involving the cervical spine. Vertebral body height is maintained. There is mild retrolisthes is at C4-C5. Alignment is otherwise preserved. There is straightening of the cervical lordosis with r eversal centered at C4-C5. Anterior osteophytes are seen throughout. The odontoid process and lateral masses are intact. The atlantoaxial articulation is preserved noting advanced productive degenerativ e change. The spinous processes appear intact. There is advanced multilevel cervical spondylosis. Unc overtebral and facet arthropathy contribute to neural foraminal narrowing at most levels. Intervertebral discs: There is advanced disc space narrowing seen at all cervical levels. Central canal: Posterior disc osteophyte complexes are seen at nearly all cervical levels and contrib enterprise to multilevel acquired compromise of the central canal. Soft tissues: The prevertebral and paraspinous soft tissues are within normal limits. There is advanc ed atherosclerotic calcification of the carotid bulbs. Calvarium: The visualized calvarium at the skull base appears intact. Brain parenchyma: Partially visualized brain parenchyma the skull base is within normal limits noting age-related involutional change. Sinuses and mastoids: The visualized paranasal sinuses are clear. The mastoid air cells are well pneu matized. Lung apices: Clear as visualized. IMPRESSION: 1. There is no evidence of fracture or subluxation involving the cervical spine. 2. Osteopenia and spondylotic change as above. Electronically signed by: Patrick Miller M.D. 05/31/2019 7:10 AM
--- NOTE | 2019-05-31 07:12 | CT Scan Report ---
CT head/brain wo con CLINICAL HISTORY: 88 years-old Female presenting with fall, head injury. TECHNIQUE: Multidetector CT imaging of the head was performed without the use of intravenous contrast . IV contrast: None. One or more dose lowering techniques were used consistent with the principles of ALARA (as low as reasonably achievable), including automatic exposure control, mA or kV adjustment t o individual patient size, and/or use of iterative reconstruction. COMPARISON: 06/28/2018. CT DOSE (mGy.cm): The estimated cumulative dose is 1493.52. FINDINGS: News Reporter topogram: The patient is edentulous. Left subclavian implanted cardiac device also noted. Proportional ventricular and sulcal prominence, likely age-related parenchymal volume loss. No hemorr jerry. Periventricular and subcortical white matter hypoattenuation, nonspecific but likely indicative of chronic small vessel ischemic change. No acute territorial infarct. No mass effect or midline alda ft. No extra-axial fluid collection. Paranasal sinuses and mastoid air cells clear. Calvarium intact. IMPRESSION: 1. Chronic small vessel ischemic change. No acute intracranial abnormality. Electronically signed by: Jaya Felder M.D. 05/31/2019 7:10 AM
[2019-05-31] MEDS ORDERED: HYDROmorphone INJ 0.5 MG/0.5 ML SYR IV PRN (07:25)
[2019-05-31 07:36] LABS: Basophils # (auto) 0.03 K/uL (0-0.2); Basophils % (auto) 0.3 %; Eosinophils # (auto) 0.05 K/uL (0-0.5); Eosinophils % (auto) 0.4 %; Hematocrit (blood only) 38.7 % (37-47); Hemoglobin 13.7 g/dL (12.0-16.0); Immature Granulocytes # (auto) 0.05 K/uL (0.00-0.02); Immature Granulocytes % (auto) 0.4 %; Lymphocytes # (auto) 1.91 K/uL (1.2-3.4); Lymphocytes % (auto) 16.7 %; Mean Corpuscular Volume 85.4 fL (80-100); Mean Platelet Volume 10.9 fL (7.4-10.4); Monocytes # (auto) 0.78 K/uL (0.11-0.59); Monocytes % (auto) 6.8 %; Neutrophils # (auto) 8.65 K/uL (1.4-6.5); Neutrophils % (auto) 75.4 %; Platelet Count 209 K/uL (130-400); RDW Coefficient of Variation 13.2 % (11.5-14.5); RDW Standard Deviation 41.4 fL (36.4-46.3); Red Blood Count 4.53 M/uL (4.2-5.4); White Blood Count 11.47 K/uL (4.8-10.8)
[2019-05-31 07:43] LABS: Mean Corpuscular Hgb Conc 35.4 g/dL (32-36)
[2019-05-31 07:57] LABS: BUN Creatinine Ratio 11.5 (10-20); Blood Urea Nitrogen 10 mg/dl (7-18); Calcium 9.2 mg/dl (8.5-10.1); Carbon Dioxide 27 mmol/L (21-32); Chloride 93 mmol/L (98-107); Est GFR (Non-African American) 63.9; Glucose 133 mg/dl (70-99); Magnesium 1.9 mg/dl (1.8-2.4); Potassium 3.5 mmol/L (3.5-5.1); Sodium 131 mmol/L (136-145)
[2019-05-31] MEDS: ASPIRIN 81 MG ECTAB PO SCH (08:03)
[2019-05-31] MEDS: MULTIVITAMIN TAB PO SCH (08:03)
[2019-05-31] MEDS: METOPROLOL SUCC 25MG EXT REL TAB PO SCH ×2 (08:03→20:05)
[2019-05-31] MEDS: PANTOprazole 40 MG TAB PO SCH (08:04)
[2019-05-31] MEDS: HEPARIN SOD 5,000 UNIT/0.5 ML VIAL SQ SCH ×2 (08:05→20:06)
[2019-05-31] MEDS: RIVASTIGMINE TARTRATE 1.5 MG CAP PO SCH ×2 (08:06→20:05)
[2019-05-31] MEDS: MAGNESIUM OXIDE 400 MG TAB PO SCH ×2 (08:06→20:05)
[2019-05-31 08:27] LABS: Estimated Average Glucose 126 mg/dl
[2019-05-31] MEDS ORDERED: POTASSIUM CHLORIDE 20 MEQ TABCR PO ONE (08:45)
--- NOTE | 2019-05-31 09:53 | CT Scan Report ---
CT hip RT wo con CLINICAL HISTORY: 88 years-old Female presenting with r hip fx. TECHNIQUE: Multidetector CT of the right hip was performed without the use of intravenous contrast. I V contrast: None. One or more dose lowering techniques were used consistent with the principles of AL ELVA (as low as reasonably achievable), including automatic exposure control, mA or kV adjustment to i ndividual patient size, and/or use of iterative reconstruction. COMPARISON: Pelvic radiographs from the previous day and the 10/11/2017. CT DOSE (mGy.cm): The estimated cumulative dose is 160.81 mGy.cm. FINDINGS: Plate Grainer topogram: Pacer wires to the right atrium and right ventricular apex. Partially visualized left distal femoral orthopedic hardware. The radiographic suggestion of a basicervical right femoral neck fracture is not present. There is si gnificant degenerative change with enthesophyte formation along the greater trochanter at the inserti on site of the right gluteus muscle complex. There is also joint space loss and moderate osteophytosi s at the right hip joint. A prominent ossific growth along the anterior right femoral neck is noted, possibly posttraumatic or degenerative related. This is not characteristic of an osteochondroma as th ere is no apparent medullary continuity. This appearance is unchanged from prior. Underlying osteopen ia. Limited evaluation of the surrounding soft tissues demonstrates no evidence of contusion or hemat lidia. Atherosclerotic calcification. IMPRESSION: 1. No evidence of a right femoral neck fracture. The radiographic abnormality likely correlates with an advanced degree of degenerative change at the greater trochanter and along the right femoral neck . 2. Moderate degenerative changes of the right hip. 3. Osteopenia. Electronically signed by: Jaya Felder M.D. 05/31/2019 9:52 AM
--- NOTE | 2019-05-31 12:28 | Orthopedic Consultation ---
Date of Consultation May 31, 2019 History of Present Illness Reason for Consultation: right leg pain Attending Physician: Chauncey Marin MD History of Present Illness Melanie is an 88 y/o female we are consulted on to evaluate for possible right hip fracture. she presented to the ER last evening after sustaining a fall, per ER notes, she lives with her daughter and tripped over a rug. Allergies Allergy/AdvReac Type Severity Reaction Status Date / Time No Known Allergies Allergy Verified 05/30/19 23:55 Home Medications Home Medications Medication Instructions Recorded Confirmed Type aspirin [Aspirin Low Dose] 81 mg PO DAILY 06/28/18 05/30/19 History levothyroxine 25 mcg PO QAM 06/28/18 05/30/19 History metoprolol succinate 12.5 mg PO BID 06/28/18 05/30/19 History omeprazole 20 mg PO QAM 06/28/18 05/30/19 History oxycodone 15 mg PO QID PRN 06/28/18 05/31/19 History polyethylene glycol 3350 17 g PO DAILY PRN 06/28/18 05/31/19 History hydrochlorothiazide 25 mg PO 3XWK 05/30/19 05/31/19 History multivitamin 1 tab PO DAILY 05/30/19 05/30/19 History rivastigmine tartrate 1.5 mg PO BID 05/31/19 05/31/19 History Patient History Medical History CKD (chronic kidney disease) stage 3, GFR 30-59 ml/min (Chronic) Diabetes mellitus type II, controlled (Chronic) "diet controlled" Hypothyroidism (Chronic) 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" Moderate aortic stenosis (Chronic) "by echo 01/2017" GERD (gastroesophageal reflux disease) (Chronic) HTN (hypertension) (Chronic) Dyslipidemia (Chronic) History of pacemaker (Chronic) Dementia Surgical History Hx of total knee arthroplasty (Resolved) "L TKA 2009" History of appendectomy (Resolved) H/O cataract removal with insertion of prosthetic lens (Resolved) History of right knee joint replacement (Chronic) Family History Other Family history non-contributory Social History Feels Safe at Home: Yes Smoking Status: Unknown if ever smoked Hx Alcohol Use: No Results & Data Vital Signs (Past 12 Hours) Vital Signs Temp Pulse Resp BP Pulse Ox 05/31/19 07:31 37.6 C H 95 H 20 142/84 H 96 09/10/19 02:30 37.5 C 96 05/31/19 01:30 170/105 H 05/31/19 01:29 37.5 C 88 160/110 H 96
--- NOTE | 2019-05-31 12:48 | XRay Report ---
XR knee RT 2V routine CLINICAL HISTORY: Right knee pain. COMPARISON: Right femur radiographs October 11, 2017. FINDINGS: Alignment of the total right knee arthroplasty is anatomic. There is no fracture or joint effusion. Extensive vascular calcification is noted. IMPRESSION: Status post total right knee arthroplasty. No fracture or joint effusion. Electronically signed by: Luis Childress M.D. 05/31/2019 12:47 PM
--- NOTE | 2019-05-31 13:15 | Hospitalist Progress Note ---
Date of Service May 31, 2019 Assessment & Plan (1) Dementia: -This is an 88-year-old female with a history of dementia, presents with a fall. -she tripped on the walker and fell. Lives with her daughter. Daughter wanted her to place in [facility] as per history and physical - Continue Exelon (Rivastigmine Tartrate) Fall -initial right hip X ray impression of potential right femoral neck fracture and orthopedics was consulted. However, assessment of CT scan shows that there is No evidence of a right femoral neck fracture and the X ray abnormality likely correlates with an advanced degree of degenerative change at the greater trochanter and along the right femoral neck. Patient is awaiting evaluation by PT/OT. Patient's daughter Jojo ([phone]) have been updated about the hospital course to date -PT/OT evaluations Osteoarthritis -pain medication prn suspected urinary tract infection -based on urine analysis -continue ceftriaxone empirically -follow urine cultures Hypertension -Continue home dose Toprol-XL, hydrochlorothiazide. Hypothyroidism -Continue home dose Levothyroxine 25 mcg daily -TSH is normal Gastroesophageal reflux disease -PPI, aspiration precautions Deep vein thrombosis prophylaxis, SCDs and heparin subcutaneously Case Management consulted for discharge planning Patient's daughter Jojo ([phone]) Subjective Patient seen and examined at bedside. She has dementia history. She thinks the y ear is and the month is March. She could not tell medical doctor how she fell at home or any personal history. Does not appear to be in acute distress. She was able to to lift her legs above the bed on her own power. She indicated that that she has discomfort of her thigh thigh and this correlated with initial right hip X ray impression of potential right femoral neck fracture and orthopedics was consulted. However, assessment of CT scan shows that there is No evidence of a right femoral neck fracture and the X ray abnormality likely correlates with an advanced degree of degenerative change at the greater trochanter and along the right femoral neck. Patient is awaiting evaluation by PT/OT. Patient's daughter Jojo ([phone]) have been updated about the hospital course to date Physical Exam Constitutional: comfortable Eyes: PERRL, conjunctivae normal, anicteric sclerae EOM intact bilaterally ENMT: external ear and nose normal, oropharynx normal Neck: normal visual inspection Respiratory: normal respiratory effort, lungs clear to auscultation Cardiovascular: Rate/Rhythm: regular rate and regular rhythm Gastrointestinal (Abdomen): normal bowel sounds, soft, nontender, no hepatosplenomegaly Musculoskeletal: Head/Neck/Chest: normocephalic and head atraumatic Neurologic: PERRL, EOMI, accommodation nl, no face palsy, no dysarthria Psychiatric: Orientation: cooperative (awake. not oriented to time or place) Results & Data Vital Signs (Past 12 Hours) Vital Signs Temp Pulse Resp BP Pulse Ox 05/31/19 07:31 37.6 C H 95 H 20 142/84 H 96 05/31/19 02:30 37.5 C 96 05/31/19 01:30 170/105 H 05/31/19 01:29 37.5 C 88 160/110 H 96 (1) Dementia Dementia behavioral disturbance: without behavioral disturbance Dementia type: unspecified type Qualified Code(s): F03.90 - Unspecified dementia without behavioral disturbance
--- NOTE | 2019-05-31 16:38 | Consultation Report ---
DATE OF CONSULTATION: 05/31/2019 The patient is an 88-year-old female who had a fall while at home, presented with concerns for right hip pain. On her clinical examination today, she has excellent range of motion of her hip. Her x-rays have been reviewed. There was a questionable intertrochanteric transcervical fracture line on her x-ray. Clinical examination of her right hip is benign. She has range of motion with no pain. CT scan revealed no evidence of right hip fracture noted. This was just artifact on her initial x-ray as her clinical exam is benign. She had some complaints of knee pain. X-rays revealed evidence of degenerative joint disease. No fracture was noted. Recommended physical therapy, progressive mobilization, will follow up with you as needed.
[2019-06-01] MEDS: cefTRIAXone SODIUM 1,000 MG in DEXTROSE 5% 50 ML IV SCH (05:39)
[2019-06-01] MEDS: LEVOTHYROXINE SODIUM 25 MCG TABLET PO SCH (06:06)
[2019-06-01 07:31] LABS: Basophils # (auto) 0.05 K/uL (0-0.2); Basophils % (auto) 0.5 %; Eosinophils # (auto) 0.05 K/uL (0-0.5); Eosinophils % (auto) 0.5 %; Hematocrit (blood only) 42.2 % (37-47); Hemoglobin 14.9 g/dL (12.0-16.0); Immature Granulocytes # (auto) 0.06 K/uL (0.00-0.02); Immature Granulocytes % (auto) 0.7 %; Lymphocytes # (auto) 2.08 K/uL (1.2-3.4); Lymphocytes % (auto) 22.7 %; Mean Corpuscular Hgb Conc 35.3 g/dL (32-36); Mean Corpuscular Volume 85.9 fL (80-100); Mean Platelet Volume 10.8 fL (7.4-10.4); Monocytes # (auto) 0.65 K/uL (0.11-0.59); Monocytes % (auto) 7.1 %; Neutrophils # (auto) 6.27 K/uL (1.4-6.5); Neutrophils % (auto) 68.5 %; Platelet Count 214 K/uL (130-400); RDW Coefficient of Variation 13.3 % (11.5-14.5); RDW Standard Deviation 41.7 fL (36.4-46.3); Red Blood Count 4.91 M/uL (4.2-5.4); White Blood Count 9.16 K/uL (4.8-10.8)
[2019-06-01] MEDS: MAGNESIUM OXIDE 400 MG TAB PO SCH ×2 (07:48→20:41)
[2019-06-01] MEDS: hydroCHLOROthiazide 25 MG TAB PO SCH (07:49)
[2019-06-01] MEDS: MULTIVITAMIN TAB PO SCH (07:49)
[2019-06-01] MEDS: METOPROLOL SUCC 25MG EXT REL TAB PO SCH ×2 (07:49→20:40)
[2019-06-01] MEDS: PANTOprazole 40 MG TAB PO SCH (07:49)
[2019-06-01] MEDS: RIVASTIGMINE TARTRATE 1.5 MG CAP PO SCH ×2 (07:49→20:43)
[2019-06-01] MEDS: HEPARIN SOD 5,000 UNIT/0.5 ML VIAL SQ SCH ×2 (07:50→20:42)
[2019-06-01] MEDS: ASPIRIN 81 MG ECTAB PO SCH (07:50)
[2019-06-01 08:00] LABS: BUN Creatinine Ratio 13.6 (10-20); Blood Urea Nitrogen 13 mg/dl (7-18); Calcium 9.3 mg/dl (8.5-10.1); Carbon Dioxide 28 mmol/L (21-32); Chloride 94 mmol/L (98-107); Est GFR (African American) 63.7; Est GFR (Non-African American) 54.9; Glucose 116 mg/dl (70-99); Magnesium 1.9 mg/dl (1.8-2.4); Sodium 132 mmol/L (136-145)
--- NOTE | 2019-06-01 17:41 | Hospitalist Progress Note ---
Date of Service June 01, 2019 Assessment & Plan (1) Dementia: Lives with daughter who is unable to care for mom at this point. Referral placed to [facility]. Exelon patch. (2) Fall: No fracture, PT/OT suggest SNF. Cont rehabilitation efforts. (3) UTI (urinary tract infection): ceftriaxone empirically pending culture results. (4) Moderate aortic stenosis: Murmur heard on exam. Euvolemic. (5) Prolapsed bladder: Cystocele noted on nursing evaluation. The patient has end-stage dementia made worse by discomfort possibly from this and UTI symptoms. She was last seen in the [facility] for this in 2017 and was told to start Kegels. However, she cannot participate in this type of treatment program as she is demented. Will consult [facility] now to consider placement of a pessary. (6) DVT prophylaxis: Heparin Full Code Dispo-pending authorization to SNF. Appreciate [facility] recommendations prior to discharge regarding prolapsed bladder. Halina Varghese, [facility] Subjective Appears to be doing well, denies any pain. She is unable to answer orientation questions correctly and tends to speak in incomplete fragments without identifying her pronouns. Referral to [facility] was placed today by Leonardo arthur. No apparent fracture s.anand medina. Appreciate Ortho and PT/OT input on this today. Tolerating PO Review of Systems Review of Systems: Unobtainable due to mental health condition Physical Exam Physical Exam: CONSTITUTIONAL: WNWD, vitals as above, generally well- appearing EYES: normal conjunctivae, no scleral icterus ENT: MMM RESPIRATORY: clear to auscultation bilaterally, no crackles, rales or wheezes, normal respiratory effort CARDIOVASCULAR: regular rate and rhythm, 3/6 TAYO heard thorughout the precordium, gallops or rubs, no JVD, no peripheral edema GASTROINTESTINAL: normal bowel sounds, soft, nontender, nondistended MUSCULOSKELETAL: strength 5/5 throughout, head is normocephalic and atraumatic SKIN: warm and dry NEUROLOGIC: No facial palsy, no dysarthria. CN 2-12 grossly intact, demented, otherwise no gross focal deficits. PSYCHIATRIC: alert cooperative disoriented to self, place and time. Euthymic mood, makes good eye contact, language grossly intact Results & Data Vital Signs (Past 12 Hours) Vital Signs Temp Pulse Resp BP Pulse Ox 06/01/19 15:33 36.6 C 80 16 109/80 91 06/01/19 07:38 36.8 C 85 20 169/97 H 98 Laboratory Results Short CBC 06/01/19 Range/Units 07:20 WBC 9.16 (4.8-10.8) K/uL Hgb 14.9 (12.0-16.0) g/dL Hct 42.2 (37-47) % Plt Count 214 (130-400) K/uL BMP 06/01/19 07:20 Sodium 132 L Potassium 4.0 Chloride 94 L Carbon Dioxide 28 BUN 13 Creatinine 0.94 Glucose 116 H Calcium 9.3 Medications Administered Current Inpatient Medications Acetaminophen (Tylenol) 325 mg PO Q6H PRN PRN Reason: pain/fever Stop: 06/30/19 03:14 Aspirin (Ecotrin Ectab) 81 mg PO DAILY [facility] Stop: 06/30/19 08:59 Last Admin: 06/01/19 07:50 Dose: 81 mg Documented by: Heparin Sodium (Porcine) (Heparin Sodium (Porcine)) 5,000 units SQ Q12H [facility] Stop: 06/30/19 08:59 Last Admin: 06/01/19 07:50 Dose: 5,000 units Documented by: Hydrochlorothiazide (Hctz) 25 mg PO MoWeFr@0900 [facility] Stop: 07/01/19 08:59 Last Admin: 06/01/19 07:49 Dose: 25 mg Documented by: Hydromorphone HCl (Dilaudid) 0.25 mg IV Q8H PRN PRN Reason: Severe Pain Stop: 06/14/19 07:24 Ceftriaxone Sodium 1,000 mg/ (Dextrose) 60 mls @ 100 mls/hr IV Q24H [facility]; Protocol Stop: 06/10/19 05:59 Last Infusion: 06/01/19 07:05 Dose: Infused Documented by: Levothyroxine Sodium (Synthroid) 25 mcg PO DAILYBB [facility] Stop: 06/30/19 06:29 Last Admin: 06/01/19 06:06 Dose: 25 mcg Documented by: Magnesium Oxide (Mag-Ox) 400 mg PO BID [facility] Stop: 06/30/19 08:59 Last Admin: 06/01/19 07:48 Dose: 400 mg Documented by: Metoprolol Succinate (Toprol Xl) 12.5 mg PO BID [facility] Stop: 06/30/19 08:59 Last Admin: 06/01/19 07:49 Dose: 12.5 mg Documented by: Miconazole Nitrate (Desenex) 1 appln EXT PRN PRN PRN Reason: Affected Skin Folds Stop: 06/30/19 06:09 Multivitamins (Multivitamin Tab) 1 tab PO DAILY [facility] Stop: 06/30/19 08:59 Last Admin: 06/01/19 07:49 Dose: 1 tab Documented by: Ondansetron HCl (Zofran) 4 mg IV Q6H PRN PRN Reason: Nausea Stop: 06/30/19 03:14 Oxycodone HCl (Roxicodone Immediate Rel) 15 mg PO QID PRN PRN Reason: Pain Stop: 06/14/19 03:14 Pantoprazole Sodium (Protonix) 40 mg PO QAM [facility] Stop: 06/30/19 08:59 Last Admin: 06/01/19 07:49 Dose: 40 mg Documented by: Polyethylene Glycol (Miralax Powder Packet) 17 gm PO DAILY PRN PRN Reason: Constipation Stop: 06/30/19 03:14 Rivastigmine Tartrate (Exelon) 1.5 mg PO BID [facility] Stop: 06/30/19 08:59 Last Admin: 06/01/19 07:49 Dose: 1.5 mg Documented by: (1) UTI (urinary tract infection) Hematuria presence: without hematuria Urinary tract infection type: site unspecified Qualified Code(s): N39.0 - Urinary tract infection, site not specified (2) Dementia Dementia behavioral disturbance: without behavioral disturbance Dementia type: unspecified type Qualified Code(s): F03.90 - Unspecified dementia without behavioral disturbance (3) Fall Encounter type: initial encounter Qualified Code(s): W19.XXXA - Unspecified fall, initial encounter
[2019-06-02] MEDS: cefTRIAXone SODIUM 1,000 MG in DEXTROSE 5% 50 ML IV SCH (05:41)
[2019-06-02] MEDS: LEVOTHYROXINE SODIUM 25 MCG TABLET PO SCH (05:51)
[2019-06-02] MEDS: ASPIRIN 81 MG ECTAB PO SCH (08:27)
[2019-06-02] MEDS: HEPARIN SOD 5,000 UNIT/0.5 ML VIAL SQ SCH ×2 (08:27→22:16)
[2019-06-02] MEDS: RIVASTIGMINE TARTRATE 1.5 MG CAP PO SCH ×2 (08:27→22:11)
[2019-06-02] MEDS: METOPROLOL SUCC 25MG EXT REL TAB PO SCH ×2 (08:28→22:15)
[2019-06-02] MEDS: MULTIVITAMIN TAB PO SCH (08:28)
[2019-06-02] MEDS: PANTOprazole 40 MG TAB PO SCH (08:28)
[2019-06-02] MEDS: MAGNESIUM OXIDE 400 MG TAB PO SCH ×2 (08:28→22:12)
[2019-06-02] MEDS: NITROFURANTOIN MONOHYDRATE 100 MG CAP PO SCH ×2 (10:37→22:11)
--- NOTE | 2019-06-02 11:47 | Hospitalist Progress Note ---
Date of Service June 02, 2019 Assessment & Plan (1) Dementia: Lives with daughter who is unable to care for mom at this point. Referral placed to [facility]. Exelon patch. (2) Fall: No fracture, PT/OT suggest SNF. Cont rehabilitation efforts. Authorization is pending. (3) UTI (urinary tract infection): Sanchez sensitive E coli. Switch ceftriaxone to Macrobid. (4) Moderate aortic stenosis: Murmur heard on exam. Euvolemic. (5) Prolapsed bladder: Cystocele noted on nursing evaluation. The patient has end-stage dementia made worse by discomfort possibly from this and UTI symptoms. She was last seen in the [facility] for this in 2017 and was told to start Kegels. However, she cannot participate in this type of treatment program as she is demented. Appreciate GI recs regarding pessary placement or other recommendations for treatment. (6) DVT prophylaxis: Heparin Full Code Dispo-pending authorization to SNF. Appreciate [facility] recommendations prior to discharge regarding prolapsed bladder. Halina Varghese DO [facility] Hospitalist Subjective doing well, advanced dementia precludes ability to answer orientation questions correctly denies pain or any needs at this time cannot remember what she had for breakfast but no issues with it Review of Systems Review of Systems: Unobtainable due to mental health condition (advanced dementia) Physical Exam Physical Exam: CONSTITUTIONAL: WNWD, vitals as above, generally well- appearing EYES: normal conjunctivae, no scleral icterus ENT: MMM RESPIRATORY: clear to auscultation bilaterally, no crackles, rales or wheezes, normal respiratory effort CARDIOVASCULAR: regular rate and rhythm, 3/6 TAYO heard throughout the precordium, gallops or rubs, no JVD, no peripheral edema GASTROINTESTINAL: normal bowel sounds, soft, nontender, nondistended MUSCULOSKELETAL: strength 5/5 throughout, head is normocephalic and atraumatic SKIN: warm and dry NEUROLOGIC: No facial palsy, no dysarthria. CN 2-12 grossly intact, otherwise no gross focal deficits. PSYCHIATRIC: alert cooperative disoriented to self, place and time. Euthymic mood, makes good eye contact, language grossly intact Results & Data Vital Signs (Past 12 Hours) Vital Signs Temp Pulse Resp BP Pulse Ox 06/02/19 07:00 36.5 C 82 16 127/81 98 Medications Administered Current Inpatient Medications Acetaminophen (Tylenol) 325 mg PO Q6H PRN PRN Reason: pain/fever Stop: 06/30/19 03:14 Aspirin (Ecotrin Ectab) 81 mg PO DAILY [facility] Stop: 06/30/19 08:59 Last Admin: 06/02/19 08:27 Dose: 81 mg Documented by: Heparin Sodium (Porcine) (Heparin Sodium (Porcine)) 5,000 units SQ Q12H [facility] Stop: 06/30/19 08:59 Last Admin: 06/02/19 08:27 Dose: 5,000 units Documented by: Hydrochlorothiazide (Hctz) 25 mg PO MoWeFr@0900 [facility] Stop: 07/01/19 08:59 Last Admin: 06/01/19 07:49 Dose: 25 mg Documented by: Hydromorphone HCl (Dilaudid) 0.25 mg IV Q8H PRN PRN Reason: Severe Pain Stop: 06/14/19 07:24 Levothyroxine Sodium (Synthroid) 25 mcg PO DAILYBB [facility] Stop: 06/30/19 06:29 Last Admin: 06/02/19 05:51 Dose: 25 mcg Documented by: Magnesium Oxide (Mag-Ox) 400 mg PO BID [facility] Stop: 06/30/19 08:59 Last Admin: 06/02/19 08:28 Dose: 400 mg Documented by: Metoprolol Succinate (Toprol Xl) 12.5 mg PO BID [facility] Stop: 06/30/19 08:59 Last Admin: 06/02/19 08:28 Dose: 12.5 mg Documented by: Miconazole Nitrate (Desenex) 1 appln EXT PRN PRN PRN Reason: Affected Skin Folds Stop: 06/30/19 06:09 Multivitamins (Multivitamin Tab) 1 tab PO DAILY [facility] Stop: 06/30/19 08:59 Last Admin: 06/02/19 08:28 Dose: 1 tab Documented by: Nitrofurantoin Macrocrystals (Macrobid) 100 mg PO BID [facility] Stop: 06/07/19 09:59 Last Admin: 06/02/19 10:37 Dose: 100 mg Documented by: Ondansetron HCl (Zofran) 4 mg IV Q6H PRN PRN Reason: Nausea Stop: 06/30/19 03:14 Oxycodone HCl (Roxicodone Immediate Rel) 15 mg PO QID PRN PRN Reason: Pain Stop: 06/14/19 03:14 Pantoprazole Sodium (Protonix) 40 mg PO QAM [facility] Stop: 06/30/19 08:59 Last Admin: 06/02/19 08:28 Dose: 40 mg Documented by: Polyethylene Glycol (Miralax Powder Packet) 17 gm PO DAILY PRN PRN Reason: Constipation Stop: 06/30/19 03:14 Rivastigmine Tartrate (Exelon) 1.5 mg PO BID [facility] Stop: 06/30/19 08:59 Last Admin: 06/02/19 08:27 Dose: 1.5 mg Documented by: (1) Dementia Dementia behavioral disturbance: without behavioral disturbance Dementia type: unspecified type Qualified Code(s): F03.90 - Unspecified dementia without behavioral disturbance (2) Fall Encounter type: initial encounter Qualified Code(s): W19.XXXA - Unspecified fall, initial encounter (3) UTI (urinary tract infection) Hematuria presence: without hematuria Urinary tract infection type: site unspecified Qualified Code(s): N39.0 - Urinary tract infection, site not specified
--- NOTE | 2019-06-02 17:28 | OB/GYN Consultation ---
Date of Consultation June 02, 2019 Assessment & Plan (1) Cystocele and rectocele with incomplete uterovaginal prolapse: 88 yo G?P? postmenopausal female with stage 3 cystocele, normal bowel and bladder functions Recommend pessary placement in our office Unfortunately there is no pessary available in the hospital We will be happy to fit her a vaginal pessary and take care as outpatient [facility] office [phone] Thank you (2) Vaginal atrophy: History of Present Illness Reason for Consultation: Bladder prolapse Attending Physician: Halina Varghese, History of Present Illness Patient is seen and examined Unable to take detailed OB&[facility] history Per her nurse she has been confused but able to urinate and move her bowels She was using BR when I came and she lied down in her bed Pelvic exam was done: visible stage 3 cystocele with atrophic vagina, easily reducible No vaginal mass nor pelvic mass noted on bimanual exam Allergies Allergy/AdvReac Type Severity Reaction Status Date / Time No Known Allergies Allergy Verified 05/30/19 23:55 Home Medications Home Medications Medication Instructions Recorded Confirmed Type aspirin [Aspirin Low Dose] 81 mg PO DAILY 06/28/18 05/30/19 History levothyroxine 25 mcg PO QAM 06/28/18 05/30/19 History metoprolol succinate 12.5 mg PO BID 06/28/18 05/30/19 History omeprazole 20 mg PO QAM 06/28/18 05/30/19 History oxycodone 15 mg PO QID PRN 06/28/18 05/31/19 History polyethylene glycol 3350 17 g PO DAILY PRN 06/28/18 05/31/19 History hydrochlorothiazide 25 mg PO 3XWK 05/30/19 05/31/19 History multivitamin 1 tab PO DAILY 05/30/19 05/30/19 History rivastigmine tartrate 1.5 mg PO BID 05/31/19 05/31/19 History Patient History Medical History CKD (chronic kidney disease) stage 3, GFR 30-59 ml/min (Chronic) Diabetes mellitus type II, controlled (Chronic) "diet controlled" Hypothyroidism (Chronic) 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" Moderate aortic stenosis (Chronic) "by echo 01/2017" GERD (gastroesophageal reflux disease) (Chronic) HTN (hypertension) (Chronic) Dyslipidemia (Chronic) History of pacemaker (Chronic) Dementia Surgical History Hx of total knee arthroplasty (Resolved) "L TKA 2009" History of appendectomy (Resolved) H/O cataract removal with insertion of prosthetic lens (Resolved) History of right knee joint replacement (Chronic) Family History Other Family history non-contributory Social History Communication Ability: Impaired Feels Safe at Home: Yes Smoking Status: Unknown if ever smoked Hx Alcohol Use: No Physical Exam Gastrointestinal (Abdomen): normal bowel sounds, soft, nontender, no hepatosplenomegaly Genitourinary: no vaginal lesions, no adnexal mass Pelvic exam was done: visible stage 3 cystocele with atrophic vagina, easily reducible No vaginal mass nor pelvic mass noted on bimanual exam Results & Data Vital Signs (Past 12 Hours) Vital Signs Temp Pulse Resp BP Pulse Ox 06/02/19 15:00 36.9 C 82 20 149/77 H 97 06/02/19 07:00 36.5 C 82 16 127/81 98
[2019-06-03] MEDS: LEVOTHYROXINE SODIUM 25 MCG TABLET PO SCH (06:07)
[2019-06-03] MEDS: RIVASTIGMINE TARTRATE 1.5 MG CAP PO SCH ×2 (08:18→20:53)
[2019-06-03] MEDS: hydroCHLOROthiazide 25 MG TAB PO SCH (08:18)
[2019-06-03] MEDS: ASPIRIN 81 MG ECTAB PO SCH (08:18)
[2019-06-03] MEDS: METOPROLOL SUCC 25MG EXT REL TAB PO SCH ×2 (08:19→20:53)
[2019-06-03] MEDS: PANTOprazole 40 MG TAB PO SCH (08:19)
[2019-06-03] MEDS: NITROFURANTOIN MONOHYDRATE 100 MG CAP PO SCH ×2 (08:19→20:54)
[2019-06-03] MEDS: MAGNESIUM OXIDE 400 MG TAB PO SCH ×2 (08:19→20:53)
[2019-06-03] MEDS: MULTIVITAMIN TAB PO SCH (08:19)
[2019-06-03] MEDS: HEPARIN SOD 5,000 UNIT/0.5 ML VIAL SQ SCH (08:20)
--- NOTE | 2019-06-03 18:29 | Hospitalist Progress Note ---
Date of Service June 03, 2019 Assessment & Plan (1) Dementia: Lives with daughter who is unable to care for mom at this point. Cont Exelon patch. Awaiting open bed at facility. (2) Fall: No fracture, PT/OT suggest SNF. Cont rehabilitation efforts. Authorization is pending. Of concern, she has been given scheduled Oxy 15 IR as outpatient, but has not required any here and has not withdrawn either. Concern for drug diversion. I have notified her PCP about this. Oxy discontinued until she actually has pain at which time she should receive something less intense to start. (3) UTI (urinary tract infection): Sanchez sensitive E coli. Switch ceftriaxone to Macrobid and she is doing well on this. (4) Moderate aortic stenosis: Murmur heard on exam. Euvolemic. (5) Prolapsed bladder: Pessary recommended by RADIATION OFFICER as outpatient. (6) DVT prophylaxis: Heparin Full Code Dispo-pending authorization to SNF. Appreciate RADIATION OFFICER recommendations prior to discharge regarding prolapsed bladder. Halina Varghese DO [facility] Hospitalist Subjective doing well denies pain RADIATION OFFICER consult recommending pessary as outpatient Review of Systems Review of Systems: All systems reviewed & are unremarkable except as noted in HPI & below (pt has dementia and is an unreliable historian, but denies issues today) Physical Exam Physical Exam: CONSTITUTIONAL: WNWD, vitals as above, generally well- appearing EYES: normal conjunctivae, no scleral icterus ENT: MMM RESPIRATORY: clear to auscultation bilaterally, no crackles, rales or wheezes, normal respiratory effort CARDIOVASCULAR: regular rate and rhythm, 3/6 TAYO heard throughout the precordium, gallops or rubs, no JVD, no peripheral edema GASTROINTESTINAL: normal bowel sounds, soft, nontender, nondistended MUSCULOSKELETAL: strength 5/5 throughout, head is normocephalic and atraumatic SKIN: warm and dry NEUROLOGIC: No facial palsy, no dysarthria. CN 2-12 grossly intact, otherwise no gross focal deficits. PSYCHIATRIC: alert cooperative disoriented to self, place and time. Euthymic mood, makes good eye contact, language grossly intact Results & Data Vital Signs (Past 12 Hours) Vital Signs Temp Pulse Resp BP Pulse Ox 06/03/19 15:00 36.8 C 74 20 123/79 92 06/03/19 11:46 36.4 C L 78 20 116/76 96 06/03/19 06:55 36.5 C 74 18 116/71 96 Medications Administered Current Inpatient Medications Acetaminophen (Tylenol) 325 mg PO Q6H PRN PRN Reason: pain/fever Stop: 06/30/19 03:14 Last Admin: 06/03/19 08:22 Dose: 325 mg Documented by: Aspirin (Ecotrin Ectab) 81 mg PO DAILY [facility] Stop: 06/30/19 08:59 Last Admin: 06/03/19 08:18 Dose: 81 mg Documented by: Heparin Sodium (Porcine) (Heparin Sodium (Porcine)) 5,000 units SQ Q12H [facility] Stop: 06/30/19 08:59 Last Admin: 06/03/19 08:20 Dose: 5,000 units Documented by: Hydrochlorothiazide (Hctz) 25 mg PO MoWeFr@0900 [facility] Stop: 07/01/19 08:59 Last Admin: 06/03/19 08:18 Dose: 25 mg Documented by: Hydromorphone HCl (Dilaudid) 0.25 mg IV Q8H PRN PRN Reason: Severe Pain Stop: 06/14/19 07:24 Levothyroxine Sodium (Synthroid) 25 mcg PO DAILYBB [facility] Stop: 06/30/19 06:29 Last Admin: 06/03/19 06:07 Dose: 25 mcg Documented by: Magnesium Oxide (Mag-Ox) 400 mg PO BID [facility] Stop: 06/30/19 08:59 Last Admin: 06/03/19 08:19 Dose: 400 mg Documented by: Metoprolol Succinate (Toprol Xl) 12.5 mg PO BID [facility] Stop: 06/30/19 08:59 Last Admin: 06/03/19 08:19 Dose: 12.5 mg Documented by: Miconazole Nitrate (Desenex) 1 appln EXT PRN PRN PRN Reason: Affected Skin Folds Stop: 06/30/19 06:09 Multivitamins (Multivitamin Tab) 1 tab PO DAILY [facility] Stop: 06/30/19 08:59 Last Admin: 06/03/19 08:19 Dose: 1 tab Documented by: Nitrofurantoin Macrocrystals (Macrobid) 100 mg PO BID [facility] Stop: 06/07/19 09:59 Last Admin: 06/03/19 08:19 Dose: 100 mg Documented by: Ondansetron HCl (Zofran) 4 mg IV Q6H PRN PRN Reason: Nausea Stop: 06/30/19 03:14 Oxycodone HCl (Roxicodone Immediate Rel) 15 mg PO QID PRN PRN Reason: Pain Stop: 06/14/19 03:14 Pantoprazole Sodium (Protonix) 40 mg PO QAM [facility] Stop: 06/30/19 08:59 Last Admin: 06/03/19 08:19 Dose: 40 mg Documented by: Polyethylene Glycol (Miralax Powder Packet) 17 gm PO DAILY PRN PRN Reason: Constipation Stop: 06/30/19 03:14 Rivastigmine Tartrate (Exelon) 1.5 mg PO BID [facility] Stop: 06/30/19 08:59 Last Admin: 06/03/19 08:18 Dose: 1.5 mg Documented by: (1) Dementia Dementia behavioral disturbance: without behavioral disturbance Dementia type: unspecified type Qualified Code(s): F03.90 - Unspecified dementia without behavioral disturbance (2) Fall Encounter type: initial encounter Qualified Code(s): W19.XXXA - Unspecified fall, initial encounter (3) UTI (urinary tract infection) Hematuria presence: without hematuria Urinary tract infection type: site unspecified Qualified Code(s): N39.0 - Urinary tract infection, site not specified
[2019-06-03] MEDS: PATIENT'S HEIGHT AND/OR WEIGHT NEEDED SCH ×2 (21:33→21:34)
[2019-06-03] MEDS ORDERED: OLANZapine 10 MG/2.1 ML SDV IM PRN (22:05)
[2019-06-03 23:43] LABS: BUN Creatinine Ratio 11.5 (10-20); Calcium 9.3 mg/dl (8.5-10.1); Creatinine Clr Calc Pharmacy 29.2 ml/min; Est GFR (African American) 48.4; Est GFR (Non-African American) 41.7; Magnesium 1.9 mg/dl (1.8-2.4); Potassium 3.9 mmol/L (3.5-5.1)
[2019-06-03 23:45] LABS: Amphetamines+Metham, Urine Neg (Neg); Barbiturates, Urine Neg (Neg); Benzodiazepine, Urine Neg (Neg); Cocaine, Urine Neg (Neg); MDMA (Ecstacy), Urine Neg (Neg); Methadone, Urine Neg (Neg); Opiate, Urine Neg (Neg); Phencyclidine, Urine Neg (Neg)
[2019-06-04] MEDS ORDERED: NSS + 20MEQ KCL 20 MEQ/1,000 ML BAG IV ONE (00:05)
--- NOTE | 2019-06-04 00:06 | Hospitalist Progress Note ---
Date of Service June 04, 2019 Subjective Made aware by RN of increased patient agitation. Sodium 129 from 132 (06/01/19) AP Delirium Acute on chronic hyponatremia Mild clinical dehydration IVF Hold HCTZ Rx for now. Zyprexa as needed agitation, one-to-one as needed Will relay to AM provider. Results & Data Vital Signs (Past 12 Hours) Vital Signs Temp Pulse Resp BP BP Pulse Ox 06/03/19 23:00 36.4 C L 77 20 144/87 H 92 06/03/19 20:52 80 135/73 06/03/19 15:00 36.8 C 74 20 123/79 92
[2019-06-04] MEDS: LEVOTHYROXINE SODIUM 25 MCG TABLET PO SCH (06:07)
[2019-06-04] MEDS: PATIENT'S HEIGHT AND/OR WEIGHT NEEDED SCH (08:16)
[2019-06-04] MEDS: ASPIRIN 81 MG ECTAB PO SCH (08:18)
[2019-06-04] MEDS: ENOXAPARIN INJ 40 MG/0.4 ML SYR SQ SCH (08:19)
[2019-06-04] MEDS: NITROFURANTOIN MONOHYDRATE 100 MG CAP PO SCH ×2 (08:19→19:59)
[2019-06-04] MEDS: RIVASTIGMINE TARTRATE 1.5 MG CAP PO SCH ×2 (08:19→19:59)
[2019-06-04] MEDS: MAGNESIUM OXIDE 400 MG TAB PO SCH ×2 (08:20→19:59)
[2019-06-04] MEDS: METOPROLOL SUCC 25MG EXT REL TAB PO SCH ×2 (08:20→20:00)
[2019-06-04] MEDS: PANTOprazole 40 MG TAB PO SCH (08:20)
[2019-06-04] MEDS: MULTIVITAMIN TAB PO SCH (08:20)
[2019-06-04 09:07] LABS: BUN Creatinine Ratio 13.2 (10-20); Calcium 9.4 mg/dl (8.5-10.1); Est GFR (African American) 64.5; Est GFR (Non-African American) 55.6; Potassium 3.8 mmol/L (3.5-5.1)
--- NOTE | 2019-06-04 16:44 | Hospitalist Progress Note ---
Date of Service June 04, 2019 Assessment & Plan (1) Dementia: Lives with daughter who is unable to care for mom at this point. Cont Exelon patch. Sundowning overnight. Cont to reorient her as needed. Avoid chemical restraint if at all possible. Avoid narcotics. Although these are being filled as outpatient, suspect patient is not using this. (2) Fall: No fracture, PT/OT suggest SNF. Cont rehabilitation efforts. Cleared for SNF, however, daughter states it isn't good for her to take mom over there today. Of concern, the patient has been given scheduled Oxy 15 IR as outpatient, but has not required any here and has not withdrawn either. Concern for drug diversion. I have notified her PCP about this. Urine tox screen is negative. Oxy discontinued until she actually has pain at which time she should receive something less intense to start. (3) UTI (urinary tract infection): Sanchez sensitive E coli. Cont Macrobid (4) Moderate aortic stenosis: Murmur heard on exam. Euvolemic. (5) Prolapsed bladder: Pessary recommended by VENETIAN BLIND WORKER as outpatient. (6) DVT prophylaxis: Heparin Full Code Dispo-pending authorization to SNF. Halina Varghese DO [facility] Hospitalist Subjective no pain reported today disoriented to questioning. some delirium and combative behavior overnight but she did not require chemical restraint. Na was 129 which is around baseline, however, diuretic was held. Daughter states it doesn't work for her to transport mom to SNF today. Review of Systems Review of Systems: Unobtainable due to mental health condition (end stage dementia) Physical Exam Physical Exam: CONSTITUTIONAL: WNWD, vitals as above, generally well- appearing EYES: normal conjunctivae, no scleral icterus ENT: MMM RESPIRATORY: clear to auscultation bilaterally, no crackles, rales or wheezes, normal respiratory effort CARDIOVASCULAR: regular rate and rhythm, 3/6 TAYO heard throughout the precordium, gallops or rubs, no JVD, no peripheral edema GASTROINTESTINAL: normal bowel sounds, soft, nontender, nondistended MUSCULOSKELETAL: strength 5/5 throughout, head is normocephalic and atraumatic SKIN: warm and dry NEUROLOGIC: No facial palsy, no dysarthria. CN 2-12 grossly intact, otherwise no gross focal deficits. PSYCHIATRIC: alert cooperative disoriented to self, place and time. Euthymic mood, makes good eye contact, language grossly intact Results & Data Vital Signs (Past 12 Hours) Vital Signs Temp Pulse Resp BP Pulse Ox 06/04/19 15:00 36.8 C 83 18 134/96 97 06/04/19 07:24 36.4 C L 76 18 126/79 Laboratory Results [facility] 06/03/19 06/04/19 23:01 08:22 Sodium 129 L 132 L Potassium 3.9 3.8 Chloride 93 L 95 L Carbon Dioxide 27 30 BUN 14 12 Creatinine 1.18 0.93 Glucose 122 H 112 H Calcium 9.3 9.4 Medications Administered Current Inpatient Medications Acetaminophen (Tylenol) 325 mg PO Q6H PRN PRN Reason: pain/fever Stop: 06/30/19 03:14 Last Admin: 06/03/19 08:22 Dose: 325 mg Documented by: Aspirin (Ecotrin Ectab) 81 mg PO DAILY [facility] Stop: 06/30/19 08:59 Last Admin: 06/04/19 08:18 Dose: 81 mg Documented by: Enoxaparin Sodium (Lovenox) 40 mg SQ QAM [facility] Stop: 07/04/19 08:59 Last Admin: 06/04/19 08:19 Dose: 40 mg Documented by: Hydrochlorothiazide (Hctz) 25 mg PO MoWeFr@0900 [facility] Stop: 07/01/19 08:59 Last Admin: 06/03/19 08:18 Dose: 25 mg Documented by: Levothyroxine Sodium (Synthroid) 25 mcg PO DAILYBB [facility] Stop: 06/30/19 06:29 Last Admin: 06/04/19 06:07 Dose: 25 mcg Documented by: Magnesium Oxide (Mag-Ox) 400 mg PO BID [facility] Stop: 06/30/19 08:59 Last Admin: 06/04/19 08:20 Dose: 400 mg Documented by: Metoprolol Succinate (Toprol Xl) 12.5 mg PO BID [facility] Stop: 06/30/19 08:59 Last Admin: 06/04/19 08:20 Dose: 12.5 mg Documented by: Miconazole Nitrate (Desenex) 1 appln EXT PRN PRN PRN Reason: Affected Skin Folds Stop: 06/30/19 06:09 Multivitamins (Multivitamin Tab) 1 tab PO DAILY [facility] Stop: 10/10/19 08:59 Last Admin: 06/04/19 08:20 Dose: 1 tab Documented by: Nitrofurantoin Macrocrystals (Macrobid) 100 mg PO BID [facility] Stop: 06/07/19 09:59 Last Admin: 06/04/19 08:19 Dose: 100 mg Documented by: Olanzapine (Zyprexa) 2.5 mg IM Q4H PRN PRN Reason: Anxiety/Agitation Stop: 07/03/19 22:04 Ondansetron HCl (Zofran) 4 mg IV Q6H PRN PRN Reason: Nausea Stop: 06/30/19 03:14 Pantoprazole Sodium (Protonix) 40 mg PO QAM [facility] Stop: 06/30/19 08:59 Last Admin: 06/04/19 08:20 Dose: 40 mg Documented by: Polyethylene Glycol (Miralax Powder Packet) 17 gm PO DAILY PRN PRN Reason: Constipation Stop: 06/30/19 03:14 Rivastigmine Tartrate (Exelon) 1.5 mg PO BID [facility] Stop: 06/30/19 08:59 Last Admin: 06/04/19 08:19 Dose: 1.5 mg Documented by: (1) UTI (urinary tract infection) Hematuria presence: without hematuria Urinary tract infection type: site unspecified Qualified Code(s): N39.0 - Urinary tract infection, site not specified (2) Dementia Dementia behavioral disturbance: without behavioral disturbance Dementia type: unspecified type Qualified Code(s): F03.90 - Unspecified dementia without behavioral disturbance (3) Fall Encounter type: initial encounter Qualified Code(s): W19.XXXA - Unspecified fall, initial encounter
[2019-06-05] MEDS: LEVOTHYROXINE SODIUM 25 MCG TABLET PO SCH (06:14)
[2019-06-05 06:27] LABS: Creatinine Clr Calc Pharmacy 44.7 ml/min; Est GFR (Non-African American) 69.9
[2019-06-05] MEDS: RIVASTIGMINE TARTRATE 1.5 MG CAP PO SCH (10:09)
[2019-06-05] MEDS: ASPIRIN 81 MG ECTAB PO SCH (10:09)
[2019-06-05] MEDS: ENOXAPARIN INJ 40 MG/0.4 ML SYR SQ SCH (10:09)
[2019-06-05] MEDS: NITROFURANTOIN MONOHYDRATE 100 MG CAP PO SCH (10:10)
[2019-06-05] MEDS: MAGNESIUM OXIDE 400 MG TAB PO SCH (10:10)
[2019-06-05] MEDS: METOPROLOL SUCC 25MG EXT REL TAB PO SCH (10:10)
[2019-06-05] MEDS: MULTIVITAMIN TAB PO SCH (10:11)
[2019-06-05] MEDS: PANTOprazole 40 MG TAB PO SCH (10:11)
--- NOTE | 2019-06-05 11:23 | Discharge Summary ---
Date of Service June 05, 2019 Admission HPI Per Admitting Provider HISTORY OF PRESENT ILLNESS: This is an 88-year-old female with past medical history significant for diet-controlled diabetes, hyperlipidemia, moderate aortic stenosis, complete heart block status post pacemaker, chronic kidney disease stage III, history of trochanteric bursitis of right hip, arthritis of both hips, lumbar degenerative disc disease, who lives with her daughter's house, was brought in because of fall. The patient has dementia, oriented to name only, can tell her date of . She thinks she walks without any help, but at home apparently, she walks with a walker and she tripped and fell, but she did not hit her head and she was brought in here. Imaging studies were unremarkable, will follow official reports.. Daughter wanted her to be placed in [place]. The patient is alert and awake , when asked questions, she tells she has some mild headache, mild nausea. Denies any chest pain. Denies shortness of breath. Denies cough. No fever, no chills. She states she moved her bowels yesterday and had normal bladder movements. No fever. Currently resting comfortably and hemodynamically stable. Admission Exam Per Admitting Provider PHYSICAL EXAMINATION: GENERAL: The patient is old and frail, not in acute distress. VITAL SIGNS: Temperature 37.5, pulse 88, respiratory rate 16, blood pressure 170/105, oxygen 96% room air. HEENT: No pallor, no icterus. Pupils equal, round, reactive to light. NECK: No JVD, no neck masses, no carotid bruits. CARDIOVASCULAR: S1, S2 heard. Ejection systolic murmur heard. Regular rate and rhythm. RESPIRATORY SYSTEM: Normal AP diameter. No accessory muscle use. No wheezing, no crackles. ABDOMEN: Soft, bowel sounds present. Mild abdominal discomfort. No guarding. No rigidity. CENTRAL NERVOUS SYSTEM: Alert and awake, oriented to name only, can tell her date of . Nonfocal. EXTREMITIES: +1 pedal edema present, no erythema. Principal Diagnosis Dementia Fall Urinary tract infection secondary to E. coli Cystocele and rectocele with incomplete uterovaginal prolapse. Discharge Data Allergies Allergy/AdvReac Type Severity Reaction Status Date / Time No Known Allergies Allergy Verified 05/30/19 23:55 Consultations 05/31/19 01:05 ED Decision to Admit Stat 05/31/19 03:15 Consult Case Management - Discharge Planning Routine 05/31/19 07:26 Consult Orthopedic Surgery Routine 06/01/19 17:53 Consult Gynecology Routine Ordered Studies 05/30/19 23:22 CT cervical spine wo con Urgent CT head/brain wo con Urgent 05/31/19 08:31 CT hip RT wo con Routine Hospital Course (1) Dementia: (2) Fall: (3) UTI (urinary tract infection): (4) Moderate aortic stenosis: (5) Prolapsed bladder: 88-year-old female presented to the emergency room after a fall at home. She has end-stage dementia and typically and ambulates independently, using a walker occasionally. Work-up revealed a urinary tract infection and antibiotics were started. She was admitted to the Hospitalist service and Orthopedics was consulted for a questionable intertrochanteric transcervical fracture line seen on her x-ray. She demonstrated full range of motion without pain and clinical exam of her right hip was benign. A CT scan was performed revealing no evidence of right hip fracture. The initial x-ray was thought to be related to artifact in the setting of a normal clinical exam. X-rays revealed evidence of degenera tive joint disease. Physical therapy and progressive mobilization was recommended. During the hospitalization she was noted to have prolapsed bladder and [facility] Gynecology was consulted. She was diagnosed with cystocele and rectocele with incomplete uterovaginal prolapse and a pessary was recommended. Unfortunately this could not be performed in the hospital but will need to be performed as an outpatient. She was seen by Dr. Pappas from [facility] Gynecology. Urine culture revealed evidence of pansensitive E. coli and antibiotics were transitioned to nitrofurantoin which she tolerated without issue. She remained afebrile and hemodynamically stable throughout her hospitalization. Dementia prohibited accurate review of symptoms, however, she did not report any pain that was severe enough to require narcotic medication during her hospitalization. She was noted to be on scheduled oxycodone 15 mg 4 times daily per PDMP dosing. However, she did not exhibit any signs of wi thdrawal from this, and was never given narcotics during his hospitalization for six days. A urinary drug screen was negative for opiates. This was addressed with her primary care doctor, her pharmacy and with her daughter who is clear she will not receive any further oxycodone at this point. If pain were to come on again, this should be managed with scheduled Tylenol, NSAIDs or as needed tramadol consistent with osteoarthritis guidelines. At time of discharge a [id number]-[id number] examination was performed revealing a hemodynamically stable and afebrile patient in no acute distress. She denied any issues with pain. Lung exam was clear to auscultation. She has a known heart murmur which is 3 out of 6 systolic ejection murmur heard. Known 3 out of 6 systolic ejection murmur that was heard on exam. Abdomen was soft nontender nondistended. No pedal edema was seen she is transitioning to [facility], however, daughter is wanting to keep Dr. Gabbie Fernandes as the patient's primary care doctor. She is hoping that [facility] will handle the transportation for this visit, which is recommended one week post hospitalization, and the outpatient gynecology visit which is recommended for vaginal pessary placement. Also of note, she did have hyponatremia on labwork, and her HCTZ was changed from 25mg MWF to 12.5mg MWF instead. A basic metabolic panel should be performed in 2 weeks for monitoring after this change. Total Time Total Time Spent Total Time Spent (In Minutes): 60 Total Time Includes: Examination of the Patient, Discharge Planning, Medication Reconciliation and Communication With Other Providers Discharge Plan Discharge Items Patient Disposition: Transfer Alf Fac Reason For Visit: FALL Discharge Diagnosis: Dementia Fall Urinary tract infection secondary to E. coli Cystocele and rectocele with incomplete uterovaginal prolapse. Condition on Discharge: Good Health Concerns: Pessary placement is recommended and must be performed as an outpatient with [facility] Gynecology. A follow-up appointment will need to be made for the patient, as she cannot make this on her own secondary to dementia, in order to get this completed. Activity: Resume your previous activity Non-emergency contact: Primary Care Provider Call non-emergency contact if: you have any medication questions, your symptoms worsen, your pain is not controlled, your pain is worsening, your pain is unusual for you, your pain is concerning for you and you have a fever Follow-up/Referrals: Gabbie Fernandes MD [Primary Care Provider] - Diet: Carb Consistent or DM2 and Heart Healthy Addtl Attending Provider Instructions: Please take all medications as instructed on discharge list below. Please stop taking oxycodone. You were not given this for 6 days and did not exhibit signs or symptoms of excessive pain or opioid withdrawal. Urine toxicology screen was negative for narcotics and no other narcotics have been used. This should be taken off of your medication list at this point. This has been discussed with your primary care physician to review further. You were found to have a urinary tract infection, and will need to continue the antibiotics for another two days. The last dose of Macrobid should be given on the jayne of 06/06. Please ensure close follow-up with [facility] Gynecology as outpatient to consider pessary placement for your prolapsed bladder. It was a pleasure taking care of you! Please call if you have any questions or problems. You can reach a [facility] Hospitalist on duty at [facility] 24 hours a day by calling [phone]. Take care of yourself. Halina Varghese, DO [facility] P[facility] Studies at Discharge: No Stand-Alone Forms: My [facility] Skilled Items Patient informed of condition?: Yes DNR: No Discharge Level of Care: Skilled Communicable Disease: No Discharge Prognosis: Stable Lines: None Urinary Catheter: No Medications and DC Order Prescriptions: New nitrofurantoin monohyd/m-cryst 100 mg Capsule 100 mg PO BID Qty: 4 RF: 0 hydrochlorothiazide 12.5 mg capsule 12.5 mg PO .MW Qty: 30 RF: 0 Continued aspirin [Aspirin Low Dose] 81 mg Tablet,Delayed Release (Dr/Ec) 81 mg PO DAILY RF: 0 levothyroxine 25 mcg tablet 25 mcg PO QAM RF: 0 omeprazole 20 mg capsule,delayed release(DR/EC) 20 mg PO QAM RF: 0 metoprolol succinate 25 mg tablet extended release 24 hr 12.5 mg PO BID RF: 0 polyethylene glycol 3350 17 gram/dose Powder 17 g PO DAILY PRN (Reason: Constipation) RF: 0 multivitamin Tablet 1 tab PO DAILY RF: 0 rivastigmine tartrate 1.5 mg capsule 1.5 mg PO BID RF: 0 Discontinued oxycodone 15 mg tablet 15 mg PO QID PRN (Reason: Pain) RF: 0 hydrochlorothiazide 25 mg Tablet 25 mg PO [id number] RF: 0 Discharge Orders: Discharge Order (Routine); Ordered 06/05/19 Ordered By: Halina Varghese Admission Data Admit Date/Time: 05/31/19 01:59 Attending Provider: Halina Varghese Admit Provider: Ashkan Ugarte Primary Care Provider: Gabbie Fernandes Other Providers: Ashkan Ugarte ; Rohan Ken ; Mp Monte ; Chris Uriarte ; Maggie Flanagan ; Harish Valverde ; Jeanie Ballard ; Bo White ; Berry Pena ; Eliezer De Leon ; Berry Fontaine ; Je Edge. ; Eliezer Mejias ; Rico Estevez ; Nikita Benitez ; Jose Miguel Curry ; Jaya Garcia ; Kenneth Martines ; Jeanie Allison ; Marcelo Pak ; Brad Bundy ; Ramiro Welch ; Ramos Santana
== END 2019-06-05 14:09 | DRG 690 ==
LOC: ED 23:12 → 2N 05-31 01:59 → SUATTDRO 05-31 01:59 → 2N 05-31 02:30

== ENCOUNTER 2020-12-02 18:42 | Inpatient (IN) ==
[2020-12-02] MEDS ORDERED: MoRPHine SULFATE 2 MG/ML CARP IV PRN (18:55)
--- NOTE | 2020-12-02 18:58 | Emergency Department Note ---
History of Present Illness General Chief Complaint: Fall Stated Complaint: FALL, HIP PAIN Time Seen by Provider: 12/02/20 18:46 Source: EMS Mode of arrival: EMS Limitations: other (Dementia) History of Present Illness Provider complaint: fall This is a 89-year-old female who presents to the ED with a chief complaint a fall and hip fracture, according to the nursing facility. The patient was picked up by paramedics. EMS report a outpatient x-ray showing a left hip fracture. The patient was transported here for evaluation. She had reportedly fallen about 1:30 AM. No additional history is able to be obtained by the patient as she has dementia. Home Medications Medication Instructions Recorded Confirmed Type acetaminophen [Tylenol] 650 mg PO Q6 PRN 12/02/20 12/02/20 History aspirin [Aspir-Low] 81 mg PO DAILY 12/02/20 12/02/20 History budesonide-formoterol [Symbicort] 2 puff INHALATION Q12 12/02/20 12/02/20 History famotidine 20 mg PO BID 12/02/20 12/02/20 History hydrochlorothiazide 12.5 mg PO 3XWK 12/02/20 12/02/20 History levothyroxine 25 mcg PO DAILY 12/02/20 12/02/20 History metformin 500 mg PO DAILY 12/02/20 12/02/20 History metoprolol succinate 12.5 mg PO BID 12/02/20 12/02/20 History sfisdwuvizmp-spnpegtu-otijlj 1 tab PO DAILY 12/02/20 12/02/20 History [Multivitamin 50 Plus] ondansetron HCl 4 mg PO Q6 PRN 12/02/20 12/02/20 History oxymetazoline [Afrin 3 drp INTRANASAL UD PRN 12/02/20 12/02/20 History (oxymetazoline)] polyethylene glycol 3350 [Miralax] 17 g PO DAILY PRN 12/02/20 12/02/20 History potassium chloride 20 meq PO 3XWK 12/02/20 12/02/20 History rivastigmine tartrate 1.5 mg PO BID 12/02/20 12/02/20 History Allergies Allergy/AdvReac Type Severity Reaction Status Date / Time No Known Allergies Allergy Verified 12/02/20 20:07 Past Med/Surg History Medical History (Updated 12/02/20 @ 21:01 by Lionel Schmidt DO) CKD (chronic kidney disease) stage 3, GFR 30-59 ml/min Dementia Diabetes mellitus type II, controlled "diet controlled" Dyslipidemia GERD (gastroesophageal reflux disease) History of pacemaker HTN (hypertension) Hypothyroidism Moderate aortic stenosis "by echo 01/2017" 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" Surgical History H/O cataract removal with insertion of prosthetic lens History of appendectomy History of right knee joint replacement Hx of total knee arthroplasty "L TKA 2009" Family History Other Family history non-contributory Social History Smoking Status: Unknown if ever smoked Hx Alcohol Use: No Communication Ability: Impaired Feels Safe at Home: Yes Assistive Devices: Walker Review of Systems Unobtainable due to cognitive status Physical Exam Vital Signs Vital Signs - 24 hr 12/02/20 18:53 12/02/20 18:56 12/02/20 19:01 Temperature 37.2 C Temperature Source Oral Pulse Rate 90 101 H 91 H Pulse Rate from SpO2 Sensor 90 91 H Respiratory Rate 26 H 24 26 H Respiratory Effort / Characteristics Non-Labored Spontaneous Respiratory Depth Normal Blood Pressure 99/54 L 85/64 L Blood Pressure Mean 69 71 Pulse Oximetry 90 91 86 L Oxygen Delivery Method Room Air Oxygen Flow Rate Sepsis Recent Fever Within 48 Hours No Sepsis New/Unexplained Change in Mental Status N/A Sepsis Action Taken by Nursing No Action Required Oxygen Flow Rate - Titration Pulse Oximetry Post Tiitration 12/02/20 19:25 12/02/20 19:26 12/02/20 19:28 Temperature Temperature Source Pulse Rate 94 H 90 Pulse Rate from SpO2 Sensor 95 H 90 Respiratory Rate 26 H 23 Respiratory Effort / Characteristics Respiratory Depth Blood Pressure 80/47 L 107/65 Blood Pressure Mean 58 79 Pulse Oximetry 93 96 86 L Oxygen Delivery Method Nasal Cannula Room Air Oxygen Flow Rate 2 Sepsis Recent Fever Within 48 Hours Sepsis New/Unexplained Change in Mental Status Sepsis Action Taken by Nursing Oxygen Flow Rate - Titration 2 Pulse Oximetry Post Tiitration 92 12/02/20 19:31 12/02/20 20:00 12/02/20 20:30 Temperature Temperature Source Pulse Rate 90 90 91 H Pulse Rate from SpO2 Sensor 93 H 90 90 Respiratory Rate 20 21 22 Respiratory Effort / Characteristics Respiratory Depth Blood Pressure 137/86 116/81 121/74 Blood Pressure Mean 103 92 89 Pulse Oximetry 99 98 92 Oxygen Delivery Method Nasal Cannula Nasal Cannula Room Air Oxygen Flow Rate 2 2 Sepsis Recent Fever Within 48 Hours Sepsis New/Unexplained Change in Mental Status Sepsis Action Taken by Nursing Oxygen Flow Rate - Titration Pulse Oximetry Post Tiitration CONSTITUTIONAL/VITAL SIGNS: Reviewed / noted above. GENERAL: Non-toxic in appearance. INTEGUMENTARY: Warm, dry, and [place]. HEAD: Normocephalic. EYES: without scleral icterus or trauma. ENT/OROPHARYNX: clear and moist. LYMPHADENOPATHY/NECK: Is supple without lymphadenopathy or meningismus. RESPIRATORY: Lungs clear and equal. CARDIOVASCULAR: Regular rate and rhythm. GI/ABDOMEN: Soft and nontender. No organomegaly or pulsatile mass. No rebound or guarding. Normal bowel sounds. EXTREMITIES: Warm and well perfused. The patient has a shortened and internally rotated left leg with hip discomfort. BACK: No CVA tenderness. NEUROLOGICAL: Intact without focal deficits. PSYCHIATRIC: normal affect. MUSCULOSKELETAL: Normally developed with good muscle tone. TRIAGE NURSING DOCUMENTATION REVIEWED. Course Administered Medications Sodium Chloride (Nss 1000ml) 1,000 mls @ 150 mls/hr IV .Q6H40M MIKAEL Stop: 12/03/20 01:39 Last Admin: 12/02/20 20:13 Dose: 150 mls/hr Documented by: [id number] Discontinued Medications Sodium Chloride (Nss 1000ml) 500 mls @ 999 mls/hr IV .Q31M ONE Stop: 12/02/20 19:58 Last Infusion: 12/02/20 20:14 Dose: 0 mls/hr Documented by: [id number] Admin: 12/02/20 19:28 Dose: 999 mls/hr Documented by: [id number] Medical Decision Making Medical Records Attestation: I reviewed the patient's medical records. Home Medications Current Medication List: was personally reviewed by me Laboratory Data Attestation: I reviewed the patient's lab results. Result diagrams: 12/02/20 19:21 12/02/20 19:21 Lab Results 12/02/20 12/02/20 12/02/20 Range/Units 19:21 19:21 19:21 WBC 11.23 H (4.8-10.8) K/uL RBC 3.96 L (4.2-5.4) M/uL Hgb 12.0 (12.0-16.0) g/dL Hct 33.7 L (37-47) % MCV 85.1 (80-100) fL MCH 30.3 (25-34) pg MCHC 35.6 (32-36) g/dL RDW Std Deviation 43.8 (36.4-46.3) fL RDW Coeff of [place] 14.1 (11.5-14.5) % Plt Count 160 (130-400) K/uL MPV 11.2 H (7.4-10.4) fL Immature Gran % (Auto) 0.1 % Neut % (Auto) 82.0 % Lymph % (Auto) 13.1 % [place] % (Auto) 3.8 % Eos % (Auto) 0.8 % Baso % (Auto) 0.2 % Neut # (Auto) 9.21 H (1.4-6.5) K/uL Lymph # (Auto) 1.47 (1.2-3.4) K/uL [place] # (Auto) 0.43 (0.11-0.59) K/uL Eos # (Auto) 0.09 (0-0.5) K/uL Baso # (Auto) 0.02 (0-0.2) K/uL Immature Gran # (Auto) 0.01 (0.00-0.02) K/uL PT 10.8 (9.0-12.0) Seconds INR 1.1 (0.9-1.1) APTT 26.8 (21.0-31.0) Seconds PTT Ratio 1.0 Sodium (136-145) mmol/L Potassium (3.5-5.1) mmol/L Chloride (98-107) mmol/L Carbon Dioxide (21-32) mmol/L Anion Gap (3-11) BUN (7-18) mg/dl Creatinine (0.6-1.2) mg/dl Est Cr Clr Drug Dosing ml/min Est GFR ( Amer) Est GFR (Non-Af Amer) BUN/Creatinine Ratio (10-20) Glucose (70-99) mg/dl Calcium (8.5-10.1) mg/dl Total Bilirubin (0.2-1) mg/dl AST (15-37) U/L ALT (12-78) U/L Alkaline Phosphatase (45-117) U/L Total Protein (6.4-8.2) gm/dl Albumin (3.4-5.0) gm/dl Globulin (2.5-4.0) gm/dl Albumin/Globulin Ratio (0.9-2) Urine Color Urine Appearance (Clear) Urine pH (4.5-7.5) Ur Specific [place] (1.000-1.030) Urine Protein (Negative) Urine Glucose (UA) (Negative) Urine Ketones (Negative) Urine Blood (Negative) Urine Nitrite (Negative) Urine Bilirubin (Negative) Urine Urobilinogen (Negative) Ur Leukocyte Esterase (Negative) COVID-19 Eval Order Blood Type A Positive Antibody Screen NEGATIVE 12/02/20 12/02/20 12/02/20 Range/Units 19:21 19:35 20:29 WBC (4.8-10.8) K/uL RBC (4.2-5.4) M/uL Hgb (12.0-16.0) g/dL Hct (37-47) % MCV (80-100) fL MCH (25-34) pg MCHC (32-36) g/dL RDW Std Deviation (36.4-46.3) fL RDW Coeff of [place] (11.5-14.5) % Plt Count (130-400) K/uL MPV (7.4-10.4) fL Immature Gran % (Auto) % Neut % (Auto) % Lymph % (Auto) % [place] % (Auto) % Eos % (Auto) % Baso % (Auto) % Neut # (Auto) (1.4-6.5) K/uL Lymph # (Auto) (1.2-3.4) K/uL [place] # (Auto) (0.11-0.59) K/uL Eos # (Auto) (0-0.5) K/uL Baso # (Auto) (0-0.2) K/uL Immature Gran # (Auto) (0.00-0.02) K/uL PT (9.0-12.0) Seconds INR (0.9-1.1) APTT (21.0-31.0) Seconds PTT Ratio Sodium 134 L (136-145) mmol/L Potassium 4.2 (3.5-5.1) mmol/L Chloride 100 (98-107) mmol/L Carbon Dioxide 26 (21-32) mmol/L Anion Gap 8.0 (3-11) BUN 20 H (7-18) mg/dl Creatinine 1.14 (0.6-1.2) mg/dl Est Cr Clr Drug Dosing 34.9 ml/min Est GFR ( Amer) 49.7 Est GFR (Non-Af Amer) 42.9 BUN/Creatinine Ratio 17.2 (10-20) Glucose 180 H (70-99) mg/dl Calcium 8.5 (8.5-10.1) mg/dl Total Bilirubin 0.9 (0.2-1) mg/dl AST 23 (15-37) U/L ALT 24 (12-78) U/L Alkaline Phosphatase 87 (45-117) U/L Total Protein 6.6 (6.4-8.2) gm/dl Albumin 3.2 L (3.4-5.0) gm/dl Globulin 3.4 (2.5-4.0) gm/dl Albumin/Globulin Ratio 0.9 (0.9-2) Urine Color Dark Yellow Urine Appearance Turbid A (Clear) Urine pH 5.0 (4.5-7.5) Ur Specific [place] 1.021 (1.000-1.030) Urine Protein 1+ H (Negative) Urine Glucose (UA) Negative (Negative) Urine Ketones Trace H (Negative) Urine Blood Negative (Negative) Urine Nitrite Negative (Negative) Urine Bilirubin Negative (Negative) Urine Urobilinogen Negative (Negative) Ur Leukocyte Esterase 1+ H (Negative) COVID-19 Eval Order Covid19 IDNow [facility] Blood Type Antibody Screen Imaging Data Attestation: I personally reviewed and interpreted this imaging study as follows: My Impression: X-ray of the left hip: Per my interpretation there is a left intertrochanteric hip fracture. Chest x-ray: Negative for acute disease per my interpretation. ECG Data Attestation: I personally reviewed and interpreted this ECG as follows: Indication: other Rate (beats per minute): 88 Rhythm: other (Paced ventricular rhythm) MDM Narrative Patient presents for left hip fracture. Chest x-ray was negative for acute disease. X-ray of the left hip shows a hip fracture. EKG shows a paced rhythm. CBC and chemistry panel was unremarkable. The patient will be seen by the hospitalist for further inpatient evaluation and care. Impression & Plan Closed left hip fracture Discharge Plan Visit Data Chief Complaint: Fall Stated Complaint: FALL, HIP PAIN ED Provider: Lionel Schmidt Discharge Problem: Closed left hip fracture Patient Disposition: Being Evaluated by Hospitalist Forms Stand Alone Forms: [facility] [place] [employer] Prescriptions Prescriptions: No Action rivastigmine tartrate 1.5 mg capsule 1.5 mg PO BID RF: 0 acetaminophen [Tylenol] 325 mg Tablet 650 mg PO Q6 PRN (Reason: Fever Or Pain) RF: 0 polyethylene glycol 3350 [Miralax] 17 gram Powder In Packet 17 g PO DAILY PRN (Reason: Constipation) RF: 0 ondansetron HCl 4 mg tablet 4 mg PO Q6 PRN (Reason: Nausea) RF: 0 aspirin [Aspir-Low] 81 mg Tablet,Delayed Release (Dr/Ec) 81 mg PO DAILY RF: 0 levothyroxine 25 mcg tablet 25 mcg PO DAILY RF: 0 potassium chloride 20 mEq tablet,ER particles/crystals 20 meq PO 3XWK RF: 0 famotidine 20 mg tablet 20 mg PO BID RF: 0 Afrin (oxymetazoline) 0.025 % Drops 3 drp INTRANASAL UD PRN (Reason: nose bleed) RF: 0 metoprolol succinate 25 mg tablet extended release 24 hr 12.5 mg PO BID RF: 0 metformin 500 mg Tablet Extended Release 24 Hr 500 mg PO DAILY RF: 0 Multivitamin 50 Plus Tablet 1 tab PO DAILY RF: 0 hydrochlorothiazide 12.5 mg tablet 12.5 mg PO 3XWK RF: 0 budesonide-formoterol [Symbicort] 160-4.5 mcg/actuation HFA aerosol inhaler 2 puff INHALATION Q12 RF: 0 Referrals Referrals: [facility] [Primary Care Provider] -
[2020-12-02] MEDS ORDERED: SODIUM CHLORIDE 0.9% 1000ML 1,000 ML IV SCH (19:00)
[2020-12-02] MEDS ORDERED: SODIUM CHLORIDE 0.9% 1000ML 500 ML IV ONE (19:28)
[2020-12-02 19:33] LABS: Basophils # (auto) 0.02 K/uL (0-0.2); Basophils % (auto) 0.2 %; Eosinophils # (auto) 0.09 K/uL (0-0.5); Eosinophils % (auto) 0.8 %; Hematocrit (blood only) 33.7 % (37-47); Immature Granulocytes # (auto) 0.01 K/uL (0.00-0.02); Immature Granulocytes % (auto) 0.1 %; Lymphocytes # (auto) 1.47 K/uL (1.2-3.4); Lymphocytes % (auto) 13.1 %; Mean Corpuscular Hemoglobin 30.3 pg (25-34); Mean Corpuscular Hgb Conc 35.6 g/dL (32-36); Mean Corpuscular Volume 85.1 fL (80-100); Mean Platelet Volume 11.2 fL (7.4-10.4); Monocytes # (auto) 0.43 K/uL (0.11-0.59); Monocytes % (auto) 3.8 %; Neutrophils # (auto) 9.21 K/uL (1.4-6.5); Platelet Count 160 K/uL (130-400); RDW Coefficient of Variation 14.1 % (11.5-14.5); RDW Standard Deviation 43.8 fL (36.4-46.3); Red Blood Count 3.96 M/uL (4.2-5.4); White Blood Count 11.23 K/uL (4.8-10.8)
[2020-12-02 19:42] LABS: INR 1.1 (0.9-1.1); Partial Thromboplastin Time 26.8 Seconds (21.0-31.0); Prothrombin Time 10.8 Seconds (9.0-12.0)
[2020-12-02 19:54] LABS: Albumin Level 3.2 gm/dl (3.4-5.0); BUN Creatinine Ratio 17.2 (10-20); Calcium 8.5 mg/dl (8.5-10.1); Creatinine Clr Calc Pharmacy 34.9 ml/min; Est GFR (African American) 49.7; Est GFR (Non-African American) 42.9; Potassium 4.2 mmol/L (3.5-5.1)
[2020-12-02 19:57] LABS: Albumin Globulin Ratio 0.9 (0.9-2); Bilirubin,Total 0.9 mg/dl (0.2-1); Globulin 3.4 gm/dl (2.5-4.0); Total Protein 6.6 gm/dl (6.4-8.2)
[2020-12-02 20:08] LABS: Appearance Urine Turbid (Clear); Bacteria Urine Automated 1+ (Negative); Bilirubin Urine Negative (Negative); Blood Urine Negative (Negative); Color Urine Dark Yellow; Epithelial Cell Urine Auto >30 /lpf (0-5); Glucose Urine UA Negative (Negative); Ketones Urine Trace (Negative); Leukocyte Esterase Urine 1+ (Negative); Nitrite Urine Negative (Negative); Protein Urine 1+ (Negative); Specific Gravity Urine 1.021 (1.000-1.030); Urobilinogen Urine Negative (Negative); WBC Urine Automated >30 /hpf (0-5)
--- NOTE | 2020-12-02 21:57 | History & Physical Report ---
Date of Service December 02, 2020 Assessment & Plan (1) Closed left hip fracture: Closed left hip fracture-, Admit to medical floor NPO Acetaminophen 600 mg p.o. every 6 hours mild pain or fever Dilaudid 0.25 mg IV every 3 hours as needed moderate pain Oxycodone IR 5 mg p.o. every 6 hours as needed moderate pain Dilaudid 0.5 mg IV every 3 hours as needed severe pain NSS + KCl 20 mEq 100 mils per hour Zofran 4 mg IV every 6 hours as needed Consult orthopedic surgery Present on Admission?: Yes (2) CKD (chronic kidney disease) stage 3, GFR 30-59 ml/min: Creatinine 1.14 upon admission, within range Present on Admission?: Yes (3) Diabetes mellitus type II, controlled: Hold Metformin. Place in Accu-Cheks before meals and at bedtime with NovoLog coverage per scale Present on Admission?: Yes (4) Third degree AV block: Status post pacer Present on Admission?: Yes (5) Moderate aortic stenosis: Moderate aortic stenosis/hypertension- Continue aspirin and metoprolol succinate Hold HCTZ and potassium chloride Present on Admission?: Yes (6) HTN (hypertension): See above Present on Admission?: Yes (7) Hypothyroidism: Continue levothyroxine 25 mcg daily Present on Admission?: Yes (8) GERD (gastroesophageal reflux disease): Continue famotidine Present on Admission?: Yes History of Present Illness Chief Complaint: The patient presents to the emergency department from [facility] after an x-ray following a fall showed a left hip fracture. Primary Care Provider: [facility] The patient is an 89-year-old female resident of [facility], with a past medical history including dementia, CKD, diabetes mellitus, hypothyroidism, third-degree heart block, moderate aortic stenosis, GERD, hypertension, dyslipidemia, status post pacer, who was referred to the emergency department after x-ray showed a left hip fracture following a fall. Allergies Allergy/AdvReac Type Severity Reaction Status Date / Time No Known Allergies Allergy Verified 12/02/20 20:07 Home Medications Medication Instructions Recorded Confirmed Type acetaminophen [Tylenol] 650 mg PO Q6 PRN 12/02/20 12/02/20 History aspirin [Aspir-Low] 81 mg PO DAILY 12/02/20 12/02/20 History budesonide-formoterol [Symbicort] 2 puff INHALATION Q12 12/02/20 12/02/20 History famotidine 20 mg PO BID 12/02/20 12/02/20 History hydrochlorothiazide 12.5 mg PO 3XWK 12/02/20 12/02/20 History levothyroxine 25 mcg PO DAILY 12/02/20 12/02/20 History metformin 500 mg PO DAILY 12/02/20 12/02/20 History metoprolol succinate 12.5 mg PO BID 12/02/20 12/02/20 History svcnkskoerxl-lrqvoelg-vsldub 1 tab PO DAILY 12/02/20 12/02/20 History [Multivitamin 50 Plus] ondansetron HCl 4 mg PO Q6 PRN 12/02/20 12/02/20 History oxymetazoline [Afrin 3 drp INTRANASAL UD PRN 12/02/20 12/02/20 History (oxymetazoline)] polyethylene glycol 3350 [Miralax] 17 g PO DAILY PRN 12/02/20 12/02/20 History potassium chloride 20 meq PO 3XWK 12/02/20 12/02/20 History rivastigmine tartrate 1.5 mg PO BID 12/02/20 12/02/20 History Past Med/Surg History Medical History (Updated 12/02/20 @ 21:01 by Lionel Schmidt DO) CKD (chronic kidney disease) stage 3, GFR 30-59 ml/min Dementia Diabetes mellitus type II, controlled "diet controlled" Dyslipidemia GERD (gastroesophageal reflux disease) History of pacemaker HTN (hypertension) Hypothyroidism Moderate aortic stenosis "by echo 01/2017" 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" Surgical History H/O cataract removal with insertion of prosthetic lens History of appendectomy History of right knee joint replacement Hx of total knee arthroplasty "L TKA 2009" Family History Other Family history non-contributory Social History Smoking Status: Never smoker Second Hand Exposure: No; Do You Dip or Chew Tobacco: No; Hx Alcohol Use: No Hx Substance Use: No Preferred Language: Latvian Communication Ability: Effective Communication Ability Comment: has dementia, so memory is impaired Machine Setter Automatic Required: No Beliefs That Will Affect Care: None Current Living Situation: [facility] Feels Safe at Home: Yes Assistive Devices: Denture - Upper, Denture - Lower and Glasses Review of Systems Review of Systems: The patient denies chest pain, palpitations, shortness of breath, dyspnea on exertion, cough, sore throat, fevers, chills, sweats, weight change, fatigue, nausea, vomiting, diarrhea , constipation, abdominal pain, pelvic pain, blood in urine or stool, dysuria, urinary frequency or urgency, lightheadedness, dizziness, headache, memory loss, loss of consciousness, rash, abnormal bruising or bleeding, focal or generalized weakness, numbness or tingling in arms, generalized arthralgias or myalgias, back or neck pain, or night sweats. The review of systems is otherwise negative other than for that already noted above, and at least 10 systems have been reviewed. Physical Exam Physical Exam: The patient is awake, alert and oriented 3, well developed and well nourished, normocephalic and atraumatic, lying in bed and in no acute distress. HEENT--PERRL, EOMI, mucous membranes and oropharynx dry. Neck--supple. No JVD. No bruits. Thyroid normal, trachea midline, no adenopathy. Heart--normal S1 and S2. No murmurs, rubs or gallops. Lungs--clear bilaterally, no respiratory distress, no accessory muscle use. Abdomen--normal bowel sounds and soft. Nontender. Nondistended. Extremities--no cyanosis or clubbing. No edema. Pain over left hip with palpation or any attempted movement Dermatologic--normal skin turgor, normal color, no abnormal lymph nodes, no rash. Neurologic--cranial nerves II through XII grossly intact. Rheumatologic--limited exam Psychiatric--normal affect. Results & Data Results & Data ([facility]) Vital Signs (Past 12 Hours) Vital Signs Temp Pulse Resp BP Pulse Ox 12/02/20 21:30 87 20 109/63 90 12/02/20 21:00 85 23 125/71 91 12/02/20 20:30 91 H 22 121/74 92 12/02/20 20:00 90 21 116/81 98 12/02/20 19:31 90 20 137/86 99 12/02/20 19:28 86 L 12/02/20 19:26 90 23 107/65 96 12/02/20 19:25 94 H 26 H 80/47 L 93 12/02/20 19:01 91 H 26 H 86 L 12/02/20 18:56 99.0 F 101 H 24 85/64 L 91 12/02/20 18:53 90 26 H 99/54 L 90 Laboratory Results Laboratory Results WBC 11.23 K/uL (4.8-10.8) H 12/02/20 19:21 RBC 3.96 M/uL (4.2-5.4) L 12/02/20 19: Hgb 12.0 g/dL (12.0-16.0) 12/02/20 19: Hct 33.7 % (37-47) L 12/02/20 19: MCV 85.1 fL (80-100) 12/02/20 19: MCH 30.3 pg (25-34) 12/02/20 19: MCHC 35.6 g/dL (32-36) 12/02/20 19: RDW Std Deviation 43.8 fL (36.4-46.3) 12/02/20 19: RDW Coeff of Leatha 14.1 % (11.5-14.5) 12/02/20 19: Plt Count 160 K/uL (130-400) 12/02/20 19: MPV 11.2 fL (7.4-10.4) H 12/02/20 19: Immature Gran % (Auto) 0.1 % 12/02/20 19: Neut % (Auto) 82.0 % 12/02/20 19:21 Lymph % (Auto) 13.1 % 12/02/20 19:21 [place] % (Auto) 3.8 % 12/02/20 19:21 Eos % (Auto) 0.8 % 12/02/20 19: Baso % (Auto) 0.2 % 12/02/20 19:21 Neut # (Auto) 9.21 K/uL (1.4-6.5) H 12/02/20 19:21 Lymph # (Auto) 1.47 K/uL (1.2-3.4) 12/02/20 19:21 [place] # (Auto) 0.43 K/uL (0.11-0.59) 12/02/20 19:21 Eos # (Auto) 0.09 K/uL (0-0.5) 12/02/20 19: Baso # (Auto) 0.02 K/uL (0-0.2) 12/02/20 19: Immature Gran # (Auto) 0.01 K/uL (0.00-0.02) 12/02/20 19: PT 10.8 Seconds (9.0-12.0) 12/02/20 19: INR 1.1 (0.9-1.1) 12/02/20 19: APTT 26.8 Seconds (21.0-31.0) 12/02/20: PTT Ratio 1.0 12/02/20 19: Sodium 134 mmol/L (136-145) L 12/02/20: Potassium 4.2 mmol/L (3.5-5.1) 12/02/20: Chloride 100 mmol/L (98-107) 12/02/20 19: Carbon Dioxide 26 mmol/L (21-32) 12/02/20 19: Anion Gap 8.0 (3-11) 12/02/20 19: BUN 20 mg/dl (7-18) H 12/02/20 19: Creatinine 1.14 mg/dl (0.6-1.2) 12/02/20: Est Cr Clr Drug Dosing 34.9 ml/min 12/02/20 19: Est GFR ( Amer) 49.7 12/02/20 19: Est GFR (Non-Af Amer) 42.9 12/02/20 19: BUN/Creatinine Ratio 17.2 (10-20) 12/02/20 19: Glucose 180 mg/dl (70-99) H 12/02/20 19: POC Glucose 149 mg/dl (70-99) H 12/02/20 23:31 Calcium 8.5 mg/dl (8.5-10.1) 12/02/20 19: Total Bilirubin 0.9 mg/dl (0.2-1) 12/02/20:21 AST 23 U/L (15-37) 12/02/20 19:21 ALT 24 U/L (12-78) 12/02/20 19:21 Alkaline Phosphatase 87 U/L (45-117) 12/02/20 19:21 Total Protein 6.6 gm/dl (6.4-8.2) 12/02/20 19:21 Albumin 3.2 gm/dl (3.4-5.0) L 12/02/20 19: Globulin 3.4 gm/dl (2.5-4.0) 12/02/20 19:21 Albumin/Globulin Ratio 0.9 (0.9-2) 12/02/20 19:21 Urine Color Dark Yellow 12/02/20 19:35 Urine Appearance Turbid (Clear) A 12/02/20 19:35 Urine pH 5.0 (4.5-7.5) 12/02/20 19:35 Ur Specific [place] 1.021 (1.000-1.030) 12/02/20 19:35 Urine Protein 1+ (Negative) H 12/02/20 19:35 Urine Glucose (UA) Negative (Negative) 12/02/20 19:35 Urine Ketones Trace (Negative) H 12/02/20 19:35 Urine Blood Negative (Negative) 12/02/20 19:35 Urine Nitrite Negative (Negative) 12/02/20 19:35 Urine Bilirubin Negative (Negative) 12/02/20 19:35 Urine Urobilinogen Negative (Negative) 12/02/20 19:35 Ur Leukocyte Esterase 1+ (Negative) H 12/02/20 19:35 Urine WBC (Auto) >30 /hpf (0-5) H 12/02/20 19:35 Urine RBC (Auto) 5-10 /hpf (0-4) H 12/02/20 19:35 U Hyaline Cast (Auto) 1-5 /lpf (0-5) 12/02/20 19:35 U Epithel Cells (Auto) >30 /lpf (0-5) H 12/02/20 19:35 Urine Bacteria (Auto) 1+ (Negative) H 12/02/20 19:35 COVID-19 Eval Order Covid19 IDNow [facility] 12/02/20 20:29 SARS-CoV-2, RNA, NAAT NEGATIVE (NEGATIVE) 12/02/20 20:29 Blood Type A Positive 12/02/20 19:21 Antibody Screen NEGATIVE 12/02/20 19:21 Code Status & VTE Plan Code Status Full code VTE Prophylaxis Plan VTE Prophylaxis will be ordered: Yes PG Care Time/CCT Total # of Minutes Spent Total Time Spent with Patient: Total time spent is greater than 50% in coordination of care (as documented) at patient's floor/unit and/or counseling patient: Coding Level of Care Code 59763 Initial Inpt Care Lvl 3 Diagnoses Closed left hip fracture S72.002A Encounter type: initial encounter CKD (chronic kidney disease) stage 3, GFR 30-59 ml/min N18.3 Diabetes mellitus type II, controlled E11.9 Third degree AV block I44.2 Moderate aortic stenosis I35.0 HTN (hypertension) I10 Hypothyroidism E03.9 GERD (gastroesophageal reflux disease) K21.9 (1) Closed left hip fracture Encounter type: initial encounter Qualified Code(s): S72.002A - Fracture of unspecified part of neck of left femur, initial encounter for closed fracture
[2020-12-02] MEDS ORDERED: GLUCOSE 40% GEL 15 GM TUBE PO PRN (22:59)
[2020-12-02] MEDS ORDERED: CARBOHYDRATES FOR HYPOGLYCEMIA PO PRN (22:59)
[2020-12-02] MEDS ORDERED: GLUCAGON FOR INJ 1 MG VIAL SQ PRN (22:59)
[2020-12-02] MEDS ORDERED: POLYETHYLENE (MIRALAX) 17 GM PACK PO PRN (22:59)
[2020-12-02] MEDS ORDERED: NALOXONE HCL 0.4 MG/1 ML VIAL/CARP IV PRN (22:59)
[2020-12-02] MEDS ORDERED: ONDANSETRON INJ 2 MG/ML 2 ML VIAL IV PRN (22:59)
[2020-12-02] MEDS ORDERED: HYDROmorphone INJ 0.5 MG/0.5 ML SYR IV PRN ×2 (22:59)
[2020-12-02] MEDS ORDERED: ACETAMINOPHEN 325 MG TAB PO PRN ×2 (22:59)
[2020-12-02] MEDS ORDERED: oxyCODONE HCL IR 5 MG TAB (IMMEDIATE RELEASE) PO PRN (22:59)
[2020-12-02] MEDS ORDERED: GLUCOSE 10 TABS/TUBE PO PRN (22:59)
[2020-12-02] MEDS ORDERED: bisacodyL 10 MG SUPP PR PRN (22:59)
[2020-12-02] MEDS ORDERED: MAGNESIUM HYDROXIDE SUSP 30 ML UDC PO PRN (22:59)
[2020-12-02] MEDS ORDERED: DEXTROSE 50% 50 ML SYRINGE IV PRN (22:59)
[2020-12-02] MEDS ORDERED: OXYMETAZOLINE 0.05% 30 ML BTL NAE PRN (23:12)
[2020-12-02] MEDS: LACTATED RINGER'S 1,000 ML IV SCH (23:26)
[2020-12-02] MEDS: METOPROLOL SUCC 25MG EXT REL TAB PO SCH (23:34)
[2020-12-02] MEDS: RIVASTIGMINE TARTRATE 1.5 MG CAP PO SCH (23:34)
[2020-12-02] MEDS: FAMOTIDINE 20 MG TAB PO SCH (23:34)
[2020-12-02] MEDS: INSULIN ASPART 100 UNITS/ML 3 ML PEN SC SCH (23:42)
[2020-12-03 05:51] LABS: Basophils # (auto) 0.04 K/uL (0-0.2); Basophils % (auto) 0.4 %; Eosinophils # (auto) 0.34 K/uL (0-0.5); Eosinophils % (auto) 3.5 %; Hematocrit (blood only) 32.8 % (37-47); Hemoglobin 11.6 g/dL (12.0-16.0); Immature Granulocytes # (auto) 0.02 K/uL (0.00-0.02); Immature Granulocytes % (auto) 0.2 %; Lymphocytes # (auto) 2.07 K/uL (1.2-3.4); Lymphocytes % (auto) 21.6 %; Mean Corpuscular Hemoglobin 30.3 pg (25-34); Mean Corpuscular Hgb Conc 35.4 g/dL (32-36); Mean Corpuscular Volume 85.6 fL (80-100); Mean Platelet Volume 10.9 fL (7.4-10.4); Monocytes # (auto) 0.51 K/uL (0.11-0.59); Monocytes % (auto) 5.3 %; Neutrophils # (auto) 6.61 K/uL (1.4-6.5); Platelet Count 135 K/uL (130-400); RDW Coefficient of Variation 14.1 % (11.5-14.5); RDW Standard Deviation 44.2 fL (36.4-46.3); Red Blood Count 3.83 M/uL (4.2-5.4); White Blood Count 9.59 K/uL (4.8-10.8)
[2020-12-03] MEDS: INSULIN ASPART 100 UNITS/ML 3 ML PEN SC SCH ×4 (06:21→21:53)
[2020-12-03] MEDS: LEVOTHYROXINE SODIUM 25 MCG TABLET PO SCH (06:21)
[2020-12-03 06:35] LABS: Albumin Level 2.8 gm/dl (3.4-5.0); BUN Creatinine Ratio 18.4 (10-20); Calcium 8.2 mg/dl (8.5-10.1); Est GFR (African American) 60.4; Est GFR (Non-African American) 52.1; Potassium 4.1 mmol/L (3.5-5.1)
[2020-12-03 06:38] LABS: Albumin Globulin Ratio 0.9 (0.9-2); Bilirubin,Total 1.3 mg/dl (0.2-1); Globulin 3.2 gm/dl (2.5-4.0)
[2020-12-03 06:57] LABS: Estimated Average Glucose 154 mg/dl
--- NOTE | 2020-12-03 07:33 | Hospitalist Progress Note ---
Date of Service December 03, 2020 Assessment & Plan (1) Closed left hip fracture: Melanie Martines is an 89 y/o F w/ hx of dementia, CKD, DM, hypothyroidism, HTN, HLD, and s/p pacer who presented from [facility] for L hip fracture s/p fall. closed left hip fracture - L hip ct. Comminuted intertrochanteric fracture within the proximal left femur. moderate stool burden. - s/p L ORIF 12/03. tylenol prn. roxicodone and dilaudid prn per ortho for more severe pain. headache, mild - patient states she hit head during fall. mild tenderness at R occiput, but w/o visible bruising - defer head CT at this time since would not show certain bleeds this early after injury - reconsider if patient's mentation changes chronic kidney disease stage 3 - Cr 1.21->1.14->0.97, stable. avoid nephrotoxic agents. asymptomatic bacteruria - culture pending. monitor clinically. positive nasal mrsa swab - follow facility protocol diabetes mellitus type II, controlled - hold Metformin. SSI. pacemaker, atrial paced per ecg - for hx of 3rd degree block. no telemetry indicated hypertension and moderate aortic stenosis - continue aspirin and metoprolol succinate - hold HCTZ and potassium chloride dementia - continue home rivastigmine hypothyroidism - continue levothyroxine 25 mcg daily gastroesophageal reflux disease - continue famotidine FENGI: NSS 100/hr ppx: Lovenox sq code: full dispo: med/surg (2) CKD (chronic kidney disease) stage 3, GFR 30-59 ml/min: (3) Diabetes mellitus type II, controlled: (4) Third degree AV block: (5) Moderate aortic stenosis: (6) HTN (hypertension): (7) Hypothyroidism: (8) GERD (gastroesophageal reflux disease): (9) Dementia: (10) Asymptomatic bacteriuria: Admission and Anticipated Discharge Date Admission Date: December 02, 2020 Supervising Physician Co-Signing Physician Notes I personally examined the patient and verified all cabezas points of history and exam, discussed case, and agree with decision making with Dr Santiago. Patient seen postop. No complaints. Obviously HPI and review of systems fairly difficult to ascertain, but seems to have no significant pain, offers no complaints. In general she is awake and alert pleasant no distress. HEENT normocephalic atraumatic mucous membranes moist. Breathing unlabored no accessory muscle use good effort. Skin shows no rashes no pallor or icterus. Neuro shows no focal deficits. Presumed osteoporotic hip fracturenow postop. Outpatient bone health work-up and treatment. PT/OT eval and treat, discharge planninganticipate return to nter care at discharge DVT prophylaxisLovenox Otherwise as above Subjective 6/10 pain at L hip. Patient thinks she hit her head when when she fell. She does not remember she if passed out. + occipital headache, 4/10 intensity. Review of Systems Review of Systems: Constitutional: Denies fever, chills, Eyes: Denies blurry vision, vision changes Cardiovascular: Denies chest pain Respiratory: + SOB, new, mild Gastrointestinal: Denies nausea, vomiting, constipation, diarrhea. + abd pain 2/10 at middle.. Genitourinary: Denies urinary symptoms including dysuria Musculoskeletal: Denies weakness, muscle aches/pain, joint aches/pain Neurological: Denies numbness, tingling, focal weakness. + occipital headache Physical Exam Physical Exam: General: Grossly A&O. NAD. Cooperative. HEENT: R back of head mild ttp. No visible bruise. Pulm: CTAB. -wheezes, -rales, -rhonchi. No respiratory distress. Cardiac: RRR. Aortic 3/6 murmur. Abdominal: Diffuse ttp. Soft, nondistended Musculoskeletal: Tender at LLE to touch, wrapped in scds. L hip area tender to light touch. Unable to flex L hip. Bilateral feet have full range of motion and strength. Results & Data Results & Data ([facility]) Vital Signs (Past 12 Hours) Vital Signs Temp Pulse Pulse Resp BP BP Pulse Ox 12/03/20 07:24 36.9 C 88 16 128/80 90 12/02/20 23:49 36.9 C 95 H 20 134/84 94 12/02/20 22:59 36.9 C 95 H 20 134/84 94 12/02/20 22:01 84 22 117/55 L 92 12/02/20 21:30 87 20 109/63 90 12/02/20 21:00 85 23 125/71 91 12/02/20 20:30 91 H 22 121/74 92 12/02/20 20:00 90 21 116/81 98 Pulse Ox 12/03/20 07:24 12/02/20 23:49 12/02/20 22:59 94 12/02/20 22:01 12/02/20 21:30 12/02/20 21:00 12/02/20 20:30 12/02/20 20:00 Resident Activity Tracking Resident Involvement: Resident Care Provided Care Provided: Adult Hospital Medicine (1) Closed left hip fracture Encounter type: initial encounter Qualified Code(s): S72.002A - Fracture of unspecified part of neck of left femur, initial encounter for closed fracture (2) Dementia Dementia behavioral disturbance: without behavioral disturbance Dementia type: unspecified type Qualified Code(s): F03.90 - Unspecified dementia without behavioral disturbance
--- NOTE | 2020-12-03 07:57 | XRay Report ---
XR femur LT 2V routine, XR hip LT min 2V CLINICAL HISTORY: Left hip pain. COMPARISON STUDY: Left femur CT 10/27/2019. FINDINGS: The bones are osteopenic. There again noted a long stemmed left total knee arthroplasty. Th e hardware appears intact. There is a slightly angulated intertrochanteric fracture within the proxim al left femur. No dislocation. The visualized pelvic bones are intact. IMPRESSION: Slightly angulated intertrochanteric fracture within the proximal left femur. ACT 112: Negative or not required by law. Electronically signed by: Don Vang M.D. 12/03/2020 7:56 AM
--- NOTE | 2020-12-03 08:30 | XRay Report ---
XR chest 1V portable CLINICAL HISTORY: Hip fracture. Fall. COMPARISON STUDY: Chest radiograph May 30, 2019. FINDINGS: Dual lead left subclavian pacemaker is in place. Cardiomediastinal silhouette is stable. No evidence for pulmonary edema. There is no pneumothorax or pleural effusion. There is no consolidatio n. The appearance of the chest is unchanged. Degenerative changes of the right shoulder are incidenta lly noted. IMPRESSION: No acute cardiopulmonary findings. ACT 112: Negative or not required by law. Electronically signed by: Luis Childress M.D. 12/03/2020 8:28 AM
--- NOTE | 2020-12-03 08:41 | CT Scan Report ---
LEFT HIP CT CT DOSE: 537.26 mGy.cm HISTORY: Left hip pain. eval left hip fx TECHNIQUE: Multiaxial CT images of the left hip were performed and reformatted in the sagittal and co saji plane without the use of contrast. A dose lowering technique was utilized adhering to the prin ciples of TEETEE. COMPARISON: Left hip 12/02/2020. FINDINGS: There is a comminuted, impacted, and angulated intertrochanteric fracture within the proxim al left femur. No dislocation. There is an old, healed left pubic ring fracture. Left lateral hip sub cutaneous contusion. There is soft tissue edema surrounding the left hip fracture which is likely lucio ctive. Colonic diverticulosis. Moderate well-formed stool within the colon. There is a Caballero catheter within the bladder. IMPRESSION: Comminuted intertrochanteric fracture within the proximal left femur as described above. ACT 112: Negative or not required by law. Electronically signed by: Don Vang M.D. 12/03/2020 8:40 AM
--- NOTE | 2020-12-03 09:00 | Orthopedic Consultation ---
Date of Consultation December 03, 2020 Assessment & Plan (1) Closed left hip fracture: Left intertrochanteric hip fracture. Patient has a previous left TKA revision that has a long femoral stem. This would likely make it difficult to do a trochanteric femoral nail. Case discussed with [facility] physicians. The patient would likely benefit from a Synthes DHS compression screw and plate device. She is currently n.p.o. and we will add her on to the surgery schedule today. Pending medical clearance, we will move forward with ORIF of the left hip. I have spoken to her daughter about the pending surgery and she will be in to visit her mother prior to surgical time. History of Present Illness Reason for Consultation: Left intertrochanteric hip fracture Attending Physician: Dante Talley DO History of Present Illness Patient is an 89-year-old white female who resides at [facility] with a past medical history including dementia, CKD, diabetes mellitus, hypothyroidism, third-degree heart block, moderate aortic stenosis, GERD, hypertension, dyslipidemia, status post pacer. With her history of dementia, she cannot remember much in the way of her accident. She states that she does ambulate at times at the nursing facility with a walker. In speaking with her daughter, her daughter states that she is mostly bed to chair secondary to frequent falls. The patient states that she does not remember the fall. She states she did bump her head. She does not believe she lost consciousness. She had no shortness of breath, chest pain, lightheadedness prior to or after the fall that she can remember. She had immediate pain in her left hip and groin and was unable to ambulate. She was brought to the emergency room here and was found to have a left intertrochanteric hip fracture. She was admitted by the [facility] and we have been asked to take care of her fracture. Allergies Allergy/AdvReac Type Severity Reaction Status Date / Time No Known Allergies Allergy Verified 12/02/20 20:07 Home Medications Medication Instructions Recorded Confirmed Type acetaminophen [Tylenol] 650 mg PO Q6 PRN 12/02/20 12/02/20 History aspirin [Aspir-Low] 81 mg PO DAILY 12/02/20 12/02/20 History budesonide-formoterol [Symbicort] 2 puff INHALATION Q12 12/02/20 12/02/20 History famotidine 20 mg PO BID 12/02/20 12/02/20 History hydrochlorothiazide 12.5 mg PO 3XWK 12/02/20 12/02/20 History levothyroxine 25 mcg PO DAILY 12/02/20 12/02/20 History metformin 500 mg PO DAILY 12/02/20 12/02/20 History metoprolol succinate 12.5 mg PO BID 12/02/20 12/02/20 History gndgfkpcgjvv-qvutdngh-lvtjwk 1 tab PO DAILY 12/02/20 12/02/20 History [Multivitamin 50 Plus] ondansetron HCl 4 mg PO Q6 PRN 12/02/20 12/02/20 History oxymetazoline [Afrin 3 drp INTRANASAL UD PRN 12/02/20 12/02/20 History (oxymetazoline)] polyethylene glycol 3350 [Miralax] 17 g PO DAILY PRN 12/02/20 12/02/20 History potassium chloride 20 meq PO 3XWK 12/02/20 12/02/20 History rivastigmine tartrate 1.5 mg PO BID 12/02/20 12/02/20 History Patient History Medical History CKD (chronic kidney disease) stage 3, GFR 30-59 ml/min Dementia Diabetes mellitus type II, controlled "diet controlled" Dyslipidemia GERD (gastroesophageal reflux disease) History of pacemaker HTN (hypertension) Hypothyroidism Moderate aortic stenosis "by echo 01/2017" 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" Surgical History H/O cataract removal with insertion of prosthetic lens History of appendectomy History of right knee joint replacement Hx of total knee arthroplasty "L TKA 2009" Family History Other Family history non-contributory Social History Smoking Status: Never smoker Second Hand Exposure: No; Do You Dip or Chew Tobacco: No; Hx Alcohol Use: No Hx Substance Use: No Preferred Language: Upper Sorbian Communication Ability: Effective Communication Ability Comment: has dementia, so memory is impaired 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 Abdominal pain, diarrhea, nausea, vomiting. Physical Exam Physical Exam: Patient is an 89-year-old white female who appears her stated age. She is pleasant and cooperative. She is alert and oriented to person and place but does not remember the year. She complains mostly of left hip pain at this time although she states that she is kind of " sore all over" after the fall. Examination of the left lower extremity finds it to be shortened and mildly internally rotated compared to the right. She has good range of motion of her left ankle and toes. She has mild pain on palpation of her left foot but range of motion does not accentuate this. There are no areas of bruising and there is minimal to no swelling noted over the dorsum of the foot. He has no pain on palpation of the left knee and has a noted scar from previous TKA revision done in 1999. She has pain on palpation of her left hip over the lateral aspect. No overt abrasions noted in this area. Range of motion is deferred for the hip and knee secondary to left hip fracture. Right lower extremity appears to be unaffected and is nontender to the right hip knee and ankle. Range of motion appears to be intact. Upper extremities, she has some mild soreness of both shoulders on palpation but is able to go through range of motion without difficulty. She denies any pain in the left elbows or wrists. She has some mil discomfort on palpation of the cervical spine but range of motion is intact without accentuating his pain. She denies any thoracic or lumbar pain. There is no gross motor or sensory loss seen at this time. Distal pulses are equal bilaterally of the upper and lower extremities. Results & Data ([facility]) Vital Signs (Past 12 Hours) Vital Signs Temp Pulse Pulse Resp BP BP Pulse Ox 12/03/20 07:24 36.9 C 88 16 128/80 90 12/02/20 23:49 36.9 C 95 H 20 134/84 94 12/02/20 22:59 36.9 C 95 H 20 134/84 94 12/02/20 22:01 84 22 117/55 L 92 12/02/20 21:30 87 20 109/63 90 12/02/20 21:00 85 23 125/71 91 Pulse Ox 12/03/20 07:24 12/02/20 23:49 12/02/20 22:59 94 12/02/20 22:01 12/02/20 21:30 12/02/20 21:00 Diagnostic Findings atient: DARLENE BLACKWELL LAdmit Date: 12/02/20MR#: [id number]: [address]Ac[address] ID:[id number]: [facility]Birth [facility]: [facility]City Zip: [place] [address]Fkk: 89Location: 3ESex: FRoom/Bed: [address] Phy: Dante Talley D.O.Diagnosis: CLOSED LEFT HIP FRACTUREPri Phy: Ian BoyleService Date: 12/03/20Fam Phy:Interpreting Phy: Don Vang MDAdmit Phy: Jamari Roque M.D. Ordering Phy: Ramiro Welch PA-C cc: ~ LEFT HIP CT CT DOSE: 537.26 mGy.cm HISTORY: Left hip pain. eval left hip fx TECHNIQUE: Multiaxial CT images of the left hip were performed and reformatted in the sagittal and coronal plane without the use of contrast. A dose lowering technique was utilized adhering to the principles of ALARA. COMPARISON: Left hip 12/02/2020. FINDINGS: There is a comminuted, impacted, and angulated intertrochanteric fracture within the proximal left femur. No dislocation. There is an old, healed left pubic ring fracture. Left lateral hip subcutaneous contusion. There is soft tissue edema surrounding the left hip fracture which is likely reactive. Colonic diverticulosis. Moderate well-formed stool within the colon. There is a Caballero catheter within the bladder. IMPRESSION: Comminuted intertrochanteric fracture within the proximal left femur as described above. (1) Closed left hip fracture Encounter type: initial encounter Qualified Code(s): S72.002A - Fracture of unspecified part of neck of left femur, initial encounter for closed fracture
[2020-12-03] MEDS: METOPROLOL SUCC 25MG EXT REL TAB PO SCH ×2 (09:15→21:29)
[2020-12-03] MEDS: RIVASTIGMINE TARTRATE 1.5 MG CAP PO SCH ×2 (09:16→21:29)
[2020-12-03] MEDS: FAMOTIDINE 20 MG TAB PO SCH ×2 (09:16→21:29)
[2020-12-03] MEDS: FLUTICASONE/VILANTEROL 200/25MCG 14 PUFFS/INHALER INH SCH (09:17)
[2020-12-03] MEDS: CEROVITE ADV FORMULA TAB PO SCH (09:17)
[2020-12-03] MEDS: ASPIRIN 81 MG ECTAB PO SCH (09:17)
[2020-12-03] MEDS ORDERED: fentaNYL citrate 100 MCG/2 ML VIAL ONE ×2 (11:29→16:16)
--- NOTE | 2020-12-03 12:00 | Anesthesiology Consultation ---
Date of Service December 03, 2020 Assessment & Plan (1) Encounter for pre-operative examination: Chart Review Chart Review: Acceptable Risk for Surgery and Patient NOT seen in Pre Admission Testing Consults Requested none History Surgery Operation Date: 12/03/20 08:10 Proposed Procedures p Left ORIF Dynamic Hip Screw(Left) - Jose Miguel Curry MD Height/Weight Height: 5 ft 4 in Weight: 79.9 kg Allergies Allergy/AdvReac Type Severity Reaction Status Date / Time No Known Allergies Allergy Verified 12/02/20 20:07 Medications Home Medications Medication Instructions Recorded Confirmed Last Taken acetaminophen [Tylenol] 650 mg PO Q6 PRN 12/02/20 12/02/20 Unknown aspirin [Aspir-Low] 81 mg PO DAILY 12/02/20 12/02/20 12/02/20 budesonide-formoterol [Symbicort] 2 puff INHALATION Q12 12/02/20 12/02/20 12/02/20 08:30 famotidine 20 mg PO BID 12/02/20 12/02/20 12/02/20 09:00 hydrochlorothiazide 12.5 mg PO 3XWK 12/02/20 12/02/20 11/30/20 levothyroxine 25 mcg PO DAILY 12/02/20 12/02/20 12/02/20 metformin 500 mg PO DAILY 12/02/20 12/02/20 Unknown metoprolol succinate 12.5 mg PO BID 12/02/20 12/02/20 Unknown qjcfazmnyjkv-vyhumhbn-nuoajv 1 tab PO DAILY 12/02/20 12/02/20 12/02/20 [Multivitamin 50 Plus] ondansetron HCl 4 mg PO Q6 PRN 12/02/20 12/02/20 Unknown oxymetazoline [Afrin 3 drp INTRANASAL UD PRN 12/02/20 12/02/20 Unknown (oxymetazoline)] polyethylene glycol 3350 [Miralax] 17 g PO DAILY PRN 12/02/20 12/02/20 Unknown potassium chloride 20 meq PO 3XWK 12/02/20 12/02/20 11/30/20 rivastigmine tartrate 1.5 mg PO BID 12/02/20 12/02/20 12/02/20 16:30 Active Medications Generic Name Dose Route Start Last Admin Trade Name Freq PRN Reason Stop Dose Admin Acetaminophen 650 mg 12/02/20 22:59 12/02/20 23:36 Acetaminophen 325 Mg Tab PO 01/01/21 22:58 650 mg Q4H PRN Administration pain/fever Aspirin 81 mg 12/03/20 09:00 12/03/20 09:17 Aspirin 81 Mg Ectab PO 01/02/21 08:59 81 mg DAILY MIKAEL Administration Famotidine 20 mg 12/02/20 22:59 12/03/20 09:16 Famotidine 20 Mg Tab PO 01/01/21 22:58 20 mg BID MIKAEL Administration Fluticasone/Vilanterol 1 puffs 12/03/20 09:00 12/03/20 09:17 Fluticasone/Vilanterol 200/25mcg 14 Puffs/Inhaler INH 01/02/21 08:59 1 puffs DAILY MIKAEL Administration Lactated Ringer's 1,000 mls @ 80 mls/hr 12/02/20 22:59 12/02/20 23:26 Lr IV 01/01/21 22:58 80 mls/hr .[id number] MIKAEL Administration Insulin Aspart 0 units 12/02/20 23:30 12/03/20 06:21 Insulin Aspart 100 Units/Ml 3 Ml Pen SC 01/01/21 23:29 Not Given Q6 MIKAEL Levothyroxine Sodium 25 mcg 12/03/20 06:30 12/03/20 06:21 Levothyroxine Sodium 25 Mcg Tablet PO 01/02/21 06:29 25 mcg DAILYBB MIKAEL Administration Metoprolol Succinate 12.5 mg 12/02/20 22:59 12/03/20 09:15 Metoprolol Succ 25mg Ext Rel Tab PO 01/01/21 22:58 12.5 mg BID MIKAEL Administration Multivitamins/Minerals 1 tab 12/03/20 09:00 12/03/20 09:17 Cerovite Adv Formula Tab PO 01/02/21 08:59 1 tab DAILY MIKAEL Administration Rivastigmine Tartrate 1.5 mg 12/02/20 22:59 12/03/20 09:16 Rivastigmine Tartrate 1.5 Mg Cap PO 01/01/21 22:58 1.5 mg BID MIKAEL Administration Past Medical History Medical History CKD (chronic kidney disease) stage 3, GFR 30-59 ml/min Dementia Diabetes mellitus type II, controlled "diet controlled" Dyslipidemia GERD (gastroesophageal reflux disease) History of pacemaker HTN (hypertension) Hypothyroidism Moderate aortic stenosis "by echo 01/2017" 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" Past Family History Family History Other Family history non-contributory Past Surgical History Surgical History H/O cataract removal with insertion of prosthetic lens History of appendectomy History of right knee joint replacement Hx of total knee arthroplasty "L TKA 2009" Social History Smoking Status: Never smoker Do You Dip or Chew Tobacco: No Hx Alcohol Use: No Hx Substance Use: No substance use type: does not use Physical Exam Vital Signs Last Vital Signs Temp 36.9 C 12/03/20 07:24 Pulse 88 12/03/20 07:24 Resp 16 12/03/20 07:24 BP 128/80 12/03/20 07:24 Pulse Ox 90 12/03/20 07:24 Testing Laboratory Results 12/03/20 05:34 12/03/20 05:34 PT 10.8 Seconds (9.0-12.0) 12/02/20 19:21 INR 1.1 (0.9-1.1) 12/02/20 19:21 APTT 26.8 Seconds (21.0-31.0) 12/02/20 19:21 Hemoglobin A1c 7.0 % (4.5-5.6) H 12/03/20 05:34 Urine Color Dark Yellow 12/02/20 19:35 Urine Appearance Turbid (Clear) A 12/02/20 19:35 Urine pH 5.0 (4.5-7.5) 12/02/20 19:35 Ur Specific [place] 1.021 (1.000-1.030) 12/02/20 19:35 Urine Protein 1+ (Negative) H 12/02/20 19:35 Urine Glucose (UA) Negative (Negative) 12/02/20 19:35 Urine Ketones Trace (Negative) H 12/02/20 19:35 Urine Nitrite Negative (Negative) 12/02/20 19:35 Ur Leukocyte Esterase 1+ (Negative) H 12/02/20 19:35 Urine WBC (Auto) >30 /hpf (0-5) H 12/02/20 19:35 Urine RBC (Auto) 5-10 /hpf (0-4) H 12/02/20 19:35 U Hyaline Cast (Auto) 1-5 /lpf (0-5) 12/02/20 19:35 U Epithel Cells (Auto) >30 /lpf (0-5) H 12/02/20 19:35 Urine Bacteria (Auto) 1+ (Negative) H 12/02/20 19:35 Blood Type A Positive 12/02/20 19:21 Antibody Screen NEGATIVE 12/02/20 19:21 12/03/20 05:56 POC Glucose 128 H Electrocardiogram Date: 12/02/20 Atrial-sensed ventricular-paced rhythm at 88 - Abnormal ECG - When compared with ECG of 27-JUN-2012 08:03, Vent. rate has increased BY 19 BPM
--- NOTE | 2020-12-03 13:00 | History & Physical Bridge Note ---
Date of Service December 03, 2020 History & Physical Bridge Note I have examined the patient, reviewed the History & Physical and in the interval since the performance of the History & Physical I have noted the following changes of clinical significance: no changes noted
[2020-12-03] MEDS ORDERED: ceFAZolin 2000MG 2,000 MG/15 ML SYR IV ONE (13:13)
[2020-12-03] MEDS ORDERED: ceFAZolin 2,000 MG/15 ML IV PUSH IV ONE (13:13)
[2020-12-03] MEDS ORDERED: ePHEDrine sulfate 50 MG/ML AMP IV PRN (13:17)
[2020-12-03] MEDS ORDERED: ONDANSETRON INJ 2 MG/ML 2 ML VIAL IV PRN (13:17)
[2020-12-03] MEDS ORDERED: ATROPINE SULFATE 0.1 MG/ML 10ML SYR IV PRN (13:17)
[2020-12-03] MEDS ORDERED: fentaNYL citrate 100 MCG/2 ML VIAL IV PRN (13:17)
--- NOTE | 2020-12-03 13:17 | Procedure Note ---
Procedure Note Date of Service December 03, 2020 Radial arterial line placed in left wrist in preop in preparation for left hip fracture with Dr. Curry. Left wrist prepped with chlorhexidine and draped with sterile towels. Site infiltrated with 1 cc of 1% lidocaine. 20 G angiocath placed under sterile technique utilizing sterile gloves, surgical hats and masks. Catheter threaded using seldinger technique with return of pulsatile, bright red blood. Site covered with occlusive dressing and taped in place. Waveform consistent with correct arterial placement. After placement, fingers of procedural hand had normal perfusion. Patient tolerated procedure well without complications. Anjana Haq MD, PhD Anesthesiologist Coding
[2020-12-03] MEDS ORDERED: BUPIVACAINE 0.5 % 5 MG/1 ML MPF 30ML VIAL ONE (14:07)
--- NOTE | 2020-12-03 16:14 | Operative Report ---
Post Operative Report Pre & Post Diagnosis Operation Date: 12/03/20 08:10 Pre-Op Diagnosis: CLOSED LEFT HIP FRACTURE four-part intertrochanteric above revision total knee replacement with intramedullary stem in femur Post-Op Diagnosis: CLOSED LEFT HIP FRACTURE four- part intertrochanteric above revision total knee replacement with intramedullary stem in femur I identified the patient and participated in the time-out.: Yes Procedure Operation Date: 12/03/20 08:10 Actual Procedures p Left Open Reduction Internal Fixation Dynamic Hip Screw(Left) - Jose Miguel Curry MD Surgeon Jose Miguel Curry MD Tapping Machine Operator Andrew SEGAL Estimated Blood Loss 80 Findings Consistent with Post-Op Diagnosis Specimens None Drains None Anesthesia Type General Complications none Disposition Accompanied Patient To Recovery: No Disposition: Recovery Room Indications 89-year-old female sustained a closed intertrochanteric left hip fracture. Patient has dementia so does not recall incident of injury. Patient has history of prior revision knee replacement left lower extremity including intramedullary stem stabilization of femoral component. Patient is short individuals of the stem approaches the area of the fracture. Patient clearly has some osteopenia osteoporosis. Description of Procedure Patient is taken to the operating room and anesthetized under anesthesia. She was placed supine on a fracture table. The left leg was placed into boot traction and the well leg was placed into a well-padded leg holding device in flexion and internal rotation. The reduction was performed by abducting the hip placing longitudinal traction in the external rotated position then internally rotation after traction was placed and then adducting the hip. An anatomic reduction was obtained. The hip was sterilely prepped and draped in usual fashion using ChloraPrep. Fluoroscopy was used throughout the case to assist in the procedure. A lateral incision was made over the hip. The skin was incised sharply. The incision was carried down from the mid greater trochanteric region to the upper lateral thigh over the area of the previous stem localized by fluoroscopy to get a plate to overlap the stem in order to prevent any stress riser. Moderately deep layer of fat was divided due to obesity. Multiple bleeders were cauterized. The fascia chan was divided longitudinally. The vastus lateralis fascia was divided longitudinally. The vastus lateralis muscle was split longitudinally with a Myers elevator and any perforating vessels were cauterized. The guidewire insertion guide was placed for the 135 degree angle guide. The guide pin was advanced into the lower third of the neck and into the central head localized on AP and lateral views to be in good position. Appropriate drills were used for the Synthes DHS plate. This was a stainless steel plate with barrel component. The length of screw was chosen to be 90 mm. We looked at a 6-10 hole plate and a 6-hole overlapped the tip of the intramedullary stem by 2 holes I felt this was satisfactory length. This plate was then impacted into position over the screw and then transfixed with 340 mm and 146 mm 4.5 mm cortical screws. Patient had osteoporosis but we did get good fixation of all screws. Distally I placed a 1.7 mm cable around the distal plate set the cable wrapped around the level of the intramedullary stem. The cable was tightened to 40 and crimping device was used and the wire cut. Traction was let off and the compression sc rew was tightened to compress the fracture site. Final fluoroscopic views were obtained to document reduction. Fracture was well aligned on all views. Wound was copiously irrigated. The vastus lateralis fascia was closed with a running locking #1 Vicryl suture. The fascia chan was then closed interrupted [id number] and 1 Vicryl sutures.. The subcutaneous tissues were closed with interrupted 2-0 Vicryl suture.. The skin was closed with william and sterile dressings were applied including 4 x 4's ABDs foam tape.. The patient tolerated the procedure well. My physician medical practice assistant Andrew SEGAL was engineer first assistant throughout the procedure and assisted in patient positioning prepping and draping soft tissue retraction and wound closure and will participate in the postoperative care of the patient. I attest to the content of the Intraoperative Record and any orders documented therein. Any exceptions are noted below.
[2020-12-03] MEDS ORDERED: ETOMIDATE 2 MG/ML 20 ML VIAL IV ONE (16:16)
[2020-12-03] MEDS ORDERED: PROPOFOL IV EMULSION 10 MG/ML 20 ML VIAL IV ONE (16:16)
[2020-12-03] MEDS ORDERED: ROCURONIUM BROMIDE 10 MG/ML 5 ML VIAL IV ONE (16:17)
[2020-12-03] MEDS ORDERED: GLYCOPYRROLATE 0.2 MG/ML VIAL ONE (16:17)
[2020-12-03] MEDS ORDERED: NEOSTIGMINE METHYLSULFATE 5 MG/5 ML SYR ONE (16:17)
[2020-12-03] MEDS ORDERED: ONDANSETRON INJ 2 MG/ML 2 ML VIAL ONE (16:17)
--- NOTE | 2020-12-03 16:27 | Fluoroscopy Report ---
FL hip LT 2-3V CLINICAL HISTORY: Left dynamic hip screw placement. COMPARISON STUDY: None. FLUOROSCOPY TIME: 1 minute and 8 seconds. FINDINGS: 5 fluoroscopic spot images of the left hip demonstrate placement of a dynamic hip screw. Th e hardware appears intact. There alignment is near-anatomic. IMPRESSION: Fluoroscopy for placement of a left dynamic hip screw. ACT 112: Negative or not required by law. Electronically signed by: Don Vang M.D. 12/03/2020 4:25 PM
--- NOTE | 2020-12-03 17:05 | Anesthesiology Progress Note ---
Date of Service December 03, 2020 Anesthesia Post Procedure Vital Signs Vital Signs: Temp Pulse Pulse Resp BP BP Pulse Ox 12/03/20 16:50 99 H 18 126/71 96 12/03/20 16:40 98 H 18 122/93 96 12/03/20 16:30 36.6 C 108 H 18 138/88 94 12/03/20 12:08 37.0 C 92 H 24 124/78 92 12/03/20 07:24 36.9 C 88 16 128/80 90 12/02/20 23:49 36.9 C 95 H 20 134/84 94 12/02/20 22:59 36.9 C 95 H 20 134/84 94 12/02/20 22:01 84 22 117/55 L 92 12/02/20 21:30 87 20 109/63 90 12/02/20 21:00 85 23 125/71 91 12/02/20 20:30 91 H 22 121/74 92 12/02/20 20:00 90 21 116/81 98 12/02/20 19:31 90 20 137/86 99 12/02/20 19:28 86 L 12/02/20 19:26 90 23 107/65 96 12/02/20 19:25 94 H 26 H 80/47 L 93 12/02/20 19:01 91 H 26 H 86 L 12/02/20 18:56 37.2 C 101 H 24 85/64 L 91 12/02/20 18:53 90 26 H 99/54 L 90 Pulse Ox 12/03/20 16:50 12/03/20 16:40 12/03/20 16:30 12/03/20 12:08 12/03/20 07:24 12/02/20 23:49 12/02/20 22:59 94 12/02/20 22:01 12/02/20 21:30 12/02/20 21:00 12/02/20 20:30 12/02/20 20:00 12/02/20 19:31 12/02/20 19:28 12/02/20 19:26 12/02/20 19:25 12/02/20 19:01 12/02/20 18:56 12/02/20 18:53 Transfer of Care Handoff Completed per policy Notes Mental Status: alert / awake / arousable and see notes below (patient has dementia) Patient Amnestic to Procedure: Yes Nausea / Vomiting: adequately controlled Pain: adequately controlled Airway Patency, RR, SpO2: stable & adequate BP & HR: stable & adequate Hydration State: stable & adequate Anesthetic Complications: no major complications apparent
[2020-12-03] MEDS ORDERED: NALOXONE HCL 0.4 MG/1 ML VIAL/CARP IV PRN (17:22)
[2020-12-03] MEDS ORDERED: Nursing to Pharmacy Communication SCH (18:45)
[2020-12-03] MEDS: LACTATED RINGER'S 1,000 ML IV SCH (19:24)
[2020-12-03] MEDS: SODIUM CHLORIDE 0.9% 1000ML 1,000 ML IV SCH (19:47)
[2020-12-03] MEDS: ceFAZolin 1000MG 1,000 MG/7.5 ML SYR IV SCH (19:47)
--- NOTE | 2020-12-03 19:51 | Billing Data ---
Date of Service December 03, 2020 Coding Level of Care Code 24822 Subseq Hosp Care Lvl 2
[2020-12-03] MEDS: DOCUSATE SODIUM/SENNA 50/8.6MG TAB PO SCH (21:30)
[2020-12-04] MEDS: ceFAZolin 1000MG 1,000 MG/7.5 ML SYR IV SCH (02:29)
[2020-12-04] MEDS: LEVOTHYROXINE SODIUM 25 MCG TABLET PO SCH (05:34)
[2020-12-04] MEDS: SODIUM CHLORIDE 0.9% 1000ML 1,000 ML IV SCH (05:34)
--- NOTE | 2020-12-04 06:01 | Electrocardiogram Report ---
Test Reason : Blood Pressure : / mmHG Vent. Rate : 088 BPM Atrial Rate : 088 BPM P-R Int : 178 ms QRS Dur : 168 ms QT Int : 444 ms P-R-T Axes : 036 -82 081 degrees QTc Int : 537 ms Atrial-sensed ventricular-paced rhythm Abnormal ECG When compared with ECG of 27-JUN-2012 08:03, Vent. rate has increased BY 19 BPM Confirmed by Monroe Duff ([id number]) on 12/04/2020 6:01:13 AM Referred By: [facility] Confirmed By:Monroe Duff
[2020-12-04 06:30] LABS: Basophils # (auto) 0.02 K/uL (0-0.2); Basophils % (auto) 0.2 %; Eosinophils # (auto) 0.09 K/uL (0-0.5); Eosinophils % (auto) 0.9 %; Hematocrit (blood only) 29.1 % (37-47); Immature Granulocytes # (auto) 0.02 K/uL (0.00-0.02); Immature Granulocytes % (auto) 0.2 %; Lymphocytes # (auto) 1.48 K/uL (1.2-3.4); Lymphocytes % (auto) 15.6 %; Mean Corpuscular Hemoglobin 29.5 pg (25-34); Mean Corpuscular Hgb Conc 34.4 g/dL (32-36); Mean Corpuscular Volume 85.8 fL (80-100); Mean Platelet Volume 11.4 fL (7.4-10.4); Monocytes % (auto) 6.3 %; Neutrophils % (auto) 76.8 %; Platelet Count 150 K/uL (130-400); RDW Coefficient of Variation 14.2 % (11.5-14.5); RDW Standard Deviation 44.7 fL (36.4-46.3); Red Blood Count 3.39 M/uL (4.2-5.4); White Blood Count 9.51 K/uL (4.8-10.8)
--- NOTE | 2020-12-04 07:10 | Hospitalist Progress Note ---
Date of Service December 04, 2020 Assessment & Plan (1) Closed left hip fracture: Melanie Martines is an 89 y/o F w/ hx of dementia, CKD, DM, hypothyroidism, HTN, HLD, and s/p pacer who presented from [facility] for L hip fracture s/p fall and is s/p ORIF on 12/03/20. closed left hip fracture - at admission, L hip ct. Comminuted intertrochanteric fracture within the proximal left femur. moderate stool burden. - 12/[address] s/p left dynamic hip screw. - s/p L ORIF 12/03. tylenol prn. roxicodone and dilaudid prn per ortho for more severe pain. headache, mild, resolved 12/03 - patient states she hit head during fall. mild tenderness at R occiput, but w/o visible bruising - defer head CT at this time since would not show certain bleeds this early after injury - reconsider if patient's mentation changes chronic kidney disease stage 3 - Cr 1.21->1.14->0.97->0.96, stable. avoid nephrotoxic agents. asymptomatic bacteruria - culture shows 3 organisms in high counts, likely contaminated sample. monitor clinically. positive nasal mrsa swab - continue contact precautions per facility protocol diabetes mellitus type II, controlled - hold Metformin. SSI. pacemaker, atrial paced per ecg - for hx of 3rd degree block. no telemetry indicated hypertension and moderate aortic stenosis - continue aspirin and metoprolol succinate - hold HCTZ and potassium chloride; normotensive 12/03 dementia - continue home rivastigmine hypothyroidism - continue levothyroxine 25 mcg daily gastroesophageal reflux disease - continue famotidine FENGI: no mIVF. DM2 diet ppx: Lovenox sq code: full dispo: med/surg, likely dispo 12/05 (2) CKD (chronic kidney disease) stage 3, GFR 30-59 ml/min: (3) Diabetes mellitus type II, controlled: (4) Third degree AV block: (5) Moderate aortic stenosis: (6) HTN (hypertension): (7) Hypothyroidism: (8) GERD (gastroesophageal reflux disease): (9) Dementia: (10) Asymptomatic bacteriuria: Admission and Anticipated Discharge Date Admission Date: December 02, 2020 Supervising Physician Co-Signing Physician Notes I personally examined the patient and verified all cabezas points of history and ex am, discussed case, and agree with decision making with Dr Santiago. No complaints. HPI and review of systems obviously limited In general she is awake and alert pleasant no distress. HEENT normocephalic atraumatic mucous membranes moist. Breathing unlabored no accessory muscle use good effort. Skin shows no rashes no pallor or icterus. Neuro shows no focal deficits. Presumed osteoporotic hip fracturenow postop day 1. Outpatient bone health work-up and treatment. PT/OT eval and treat, and appears stable for return to [facility] care for ongoing PT/OT once able DVT prophylaxisLovenox Otherwise as above Subjective The patient's head is not hurting. She has 5/10 L hip pain and did not require pain medications overnight. Review of Systems Review of Systems: Constitutional: Denies fever, chills Cardiovascular: Denies chest pain Respiratory: Denies shortness of breath Gastrointestinal: Denies abdominal pain, nausea, vomiting, constipation, diarrhea Genitourinary: Has rivera Musculoskeletal: LLE pain. Neurological: Denies headache Physical Exam Physical Exam: General: A&Ox1 to person only. NAD. Cooperative. HEENT: Mild tenderness at right occiput, no visible deformity. Pulm: CTAB. -wheezes, -rales, -rhonchi. No respiratory distress. Cardiac: RRR, -mrg. Radial pulses intact and symmetrical. Musculoskeletal: Tender at L hip and menjivar. Results & Data Results & Data ([facility]) Vital Signs (Past 12 Hours) Vital Signs Temp Pulse Pulse Resp BP BP Pulse Ox 12/04/20 02:33 36.9 C 97 H 18 122/76 91 12/03/20 22:35 36.7 C 110 H 20 121/76 93 12/03/20 21:27 106 H 126/83 12/03/20 20:45 37.1 C 99 H 20 122/78 90 12/03/20 19:34 36.4 C L 95 H 18 104/71 98 Resident Activity Tracking Resident Involvement: Resident Care Provided Care Provided: Adult Hospital Medicine (1) Dementia Dementia behavioral disturbance: without behavioral disturbance Dementia type: unspecified type Qualified Code(s): F03.90 - Unspecified dementia without behavioral disturbance (2) Closed left hip fracture Encounter type: initial encounter Qualified Code(s): S72.002A - Fracture of unspecified part of neck of left femur, initial encounter for closed fracture
[2020-12-04 07:12] LABS: Albumin Level 2.6 gm/dl (3.4-5.0); BUN Creatinine Ratio 18.1 (10-20); Calcium 8.1 mg/dl (8.5-10.1); Creatinine Clr Calc Pharmacy 41.4 ml/min; Est GFR (African American) 61.2; Est GFR (Non-African American) 52.8; Potassium 4.2 mmol/L (3.5-5.1)
[2020-12-04 07:16] LABS: Albumin Globulin Ratio 0.8 (0.9-2); Bilirubin,Total 0.9 mg/dl (0.2-1); Globulin 3.3 gm/dl (2.5-4.0); Total Protein 5.9 gm/dl (6.4-8.2)
--- NOTE | 2020-12-04 08:03 | Orthopedic Progress Note ---
Date of Service December 04, 2020 Assessment & Plan (1) Closed left hip fracture: Postop day 1 status post ORIF left hip fracture with DHS compression plate and screw device PT OT protocols. Toe-touch weightbearing left lower extremity if possible. DVT prophylaxis-enoxaparin, SCDs, REVA hose Pain management as written. Admission and Anticipated Discharge Date Admission Date: December 02, 2020 Subjective Postop day 1 Patient currently lying in bed awake and alert. Answers some questions appropriately. Denies shortness of breath, chest pain, lightheadedness. Pain i s controlled. Physical Exam Physical Exam: Dressings are clean, dry, and intact. Calves are soft and nontender. Neurovascular intact. Toes are mobile. Results & Data ([facility]) Vital Signs (Past 12 Hours) Vital Signs Temp Pulse Pulse Resp BP BP Pulse Ox 12/04/20 07:34 37.2 C 90 16 94/60 L 93 12/04/20 02:33 36.9 C 97 H 18 122/76 91 12/03/20 22:35 36.7 C 110 H 20 121/76 93 12/03/20 21:27 106 H 126/83 12/03/20 20:45 37.1 C 99 H 20 122/78 90 Laboratory Results Laboratory Results WBC 9.51 K/uL (4.8-10.8) 12/04/20 05:51 RBC 3.39 M/uL (4.2-5.4) L 12/04/20 05:51 Hgb 10.0 g/dL (12.0-16.0) L 12/04/20 05:51 Hct 29.1 % (37-47) L 12/04/20 05:51 MCV 85.8 fL (80-100) 12/04/20 05:51 MCH 29.5 pg (25-34) 12/04/20 05:51 MCHC 34.4 g/dL (32-36) 12/04/20 05:51 RDW Std Deviation 44.7 fL (36.4-46.3) 12/04/20 05:51 RDW Coeff of Leatha 14.2 % (11.5-14.5) 12/04/20 05:51 Plt Count 150 K/uL (130-400) 12/04/20 05:51 MPV 11.4 fL (7.4-10.4) H 12/04/20 05:51 Immature Gran % (Auto) 0.2 % 12/04/20 05:51 Neut % (Auto) 76.8 % 12/04/20 05:51 Lymph % (Auto) 15.6 % 12/04/20 05:51 Shelby % (Auto) 6.3 % 12/04/20 05:51 Eos % (Auto) 0.9 % 12/04/20 05:51 Baso % (Auto) 0.2 % 12/04/20 05:51 Neut # (Auto) 7.30 K/uL (1.4-6.5) H 12/04/20 05:51 Lymph # (Auto) 1.48 K/uL (1.2-3.4) 12/04/20 05:51 Shelby # (Auto) 0.60 K/uL (0.11-0.59) H 12/04/20 05:51 Eos # (Auto) 0.09 K/uL (0-0.5) 12/04/20 05:51 Baso # (Auto) 0.02 K/uL (0-0.2) 12/04/20 05:51 Immature Gran # (Auto) 0.02 K/uL (0.00-0.02) 12/04/20 05:51 PT 10.8 Seconds (9.0-12.0) 12/02/20 19:21 INR 1.1 (0.9-1.1) 12/02/20 19:21 APTT 26.8 Seconds (21.0-31.0) 12/02/20 19:21 PTT Ratio 1.0 12/02/20 19:21 Sodium 136 mmol/L (136-145) 12/04/20 05:51 Potassium 4.2 mmol/L (3.5-5.1) 12/04/20 05:51 Chloride 104 mmol/L (98-107) 12/04/20 05:51 Carbon Dioxide 25 mmol/L (21-32) 12/04/20 05:51 Anion Gap 7.0 (3-11) 12/04/20 05:51 BUN 17 mg/dl (7-18) 12/04/20 05:51 Creatinine 0.96 mg/dl (0.6-1.2) 12/04/20 05:51 Est Cr Clr Drug Dosing 41.4 ml/min 12/04/20 05:51 Est GFR ( Amer) 61.2 12/04/20 05:51 Est GFR (Non-Af Amer) 52.8 12/04/20 05:51 BUN/Creatinine Ratio 18.1 (10-20) 12/04/20 05:51 Glucose 146 mg/dl (70-99) H 12/04/20 05:51 POC Glucose 144 mg/dl (70-99) H 12/03/20 20:43 Estimat Average Glucose 154 mg/dl 12/03/20 05:34 Hemoglobin A1c 7.0 % (4.5-5.6) H 12/03/20 05:34 Calcium 8.1 mg/dl (8.5-10.1) L 12/04/20 05:51 Total Bilirubin 0.9 mg/dl (0.2-1) 12/04/20 05:51 AST 25 U/L (15-37) 12/04/20 05:51 ALT 18 U/L (12-78) 12/04/20 05:51 Alkaline Phosphatase 76 U/L (45-117) 12/04/20 05:51 Total Protein 5.9 gm/dl (6.4-8.2) L 12/04/20 05:51 Albumin 2.6 gm/dl (3.4-5.0) L 12/04/20 05:51 Globulin 3.3 gm/dl (2.5-4.0) 12/04/20 05:51 Albumin/Globulin Ratio 0.8 (0.9-2) L 12/04/20 05:51 Urine Color Dark Yellow 12/02/20 19:35 Urine Appearance Turbid (Clear) A 12/02/20 19:35 Urine pH 5.0 (4.5-7.5) 12/02/20 19:35 Ur Specific [place] 1.021 (1.000-1.030) 12/02/20 19:35 Urine Protein 1+ (Negative) H 12/02/20 19:35 Urine Glucose (UA) Negative (Negative) 12/02/20 19:35 Urine Ketones Trace (Negative) H 12/02/20 19:35 Urine Blood Negative (Negative) 12/02/20 19:35 Urine Nitrite Negative (Negative) 12/02/20 19:35 Urine Bilirubin Negative (Negative) 12/02/20 19:35 Urine Urobilinogen Negative (Negative) 12/02/20 19:35 Ur Leukocyte Esterase 1+ (Negative) H 12/02/20 19:35 Urine WBC (Auto) >30 /hpf (0-5) H 12/02/20 19:35 Urine RBC (Auto) 5-10 /hpf (0-4) H 12/02/20 19:35 U Hyaline Cast (Auto) 1-5 /lpf (0-5) 12/02/20 19:35 U Epithel Cells (Auto) >30 /lpf (0-5) H 12/02/20 19:35 Urine Bacteria (Auto) 1+ (Negative) H 12/02/20 19:35 Nasal Screen MRSA (PCR) Positive (Negative) A 12/03/20 06:25 COVID-19 Eval Order Covid19 [facility] 12/02/20 20:29 SARS-CoV-2, RNA, NAAT NEGATIVE (NEGATIVE) 12/02/20 20:29 Blood Type A Positive 12/02/20 19:21 Antibody Screen NEGATIVE 12/02/20 19:21 (1) Closed left hip fracture Encounter type: initial encounter Qualified Code(s): S72.002A - Fracture of unspecified part of neck of left femur, initial encounter for closed fracture
[2020-12-04] MEDS: FLUTICASONE/VILANTEROL 200/25MCG 14 PUFFS/INHALER INH SCH (09:08)
[2020-12-04] MEDS: RIVASTIGMINE TARTRATE 1.5 MG CAP PO SCH ×2 (09:09→20:54)
[2020-12-04] MEDS: FAMOTIDINE 20 MG TAB PO SCH ×2 (09:09→20:54)
[2020-12-04] MEDS: METOPROLOL SUCC 25MG EXT REL TAB PO SCH ×2 (09:10→20:54)
[2020-12-04] MEDS: ASPIRIN 81 MG ECTAB PO SCH (09:12)
[2020-12-04] MEDS: CEROVITE ADV FORMULA TAB PO SCH (09:12)
[2020-12-04] MEDS: INSULIN ASPART 100 UNITS/ML 3 ML PEN SC SCH ×4 (09:16→21:00)
[2020-12-04] MEDS: MICONAZOLE NITRATE POWDER 43 GM EXT PRN (10:55)
[2020-12-04] MEDS: ENOXAPARIN INJ 30 MG/0.3 ML SYR SQ SCH ×2 (13:38→23:24)
--- NOTE | 2020-12-04 20:03 | Billing Data ---
Date of Service December 04, 2020 Coding Level of Care Code 64263 Subseq Hosp Care Lvl 2
[2020-12-04] MEDS: DOCUSATE SODIUM/SENNA 50/8.6MG TAB PO SCH (20:54)
[2020-12-05] MEDS: LEVOTHYROXINE SODIUM 25 MCG TABLET PO SCH (05:36)
[2020-12-05 06:18] LABS: Basophils # (auto) 0.03 K/uL (0-0.2); Basophils % (auto) 0.3 %; Eosinophils # (auto) 0.13 K/uL (0-0.5); Eosinophils % (auto) 1.4 %; Hematocrit (blood only) 27.8 % (37-47); Hemoglobin 9.5 g/dL (12.0-16.0); Immature Granulocytes # (auto) 0.03 K/uL (0.00-0.02); Immature Granulocytes % (auto) 0.3 %; Lymphocytes # (auto) 1.66 K/uL (1.2-3.4); Lymphocytes % (auto) 17.4 %; Mean Corpuscular Hemoglobin 29.5 pg (25-34); Mean Corpuscular Hgb Conc 34.2 g/dL (32-36); Mean Corpuscular Volume 86.3 fL (80-100); Monocytes # (auto) 0.79 K/uL (0.11-0.59); Monocytes % (auto) 8.3 %; Neutrophils # (auto) 6.89 K/uL (1.4-6.5); Neutrophils % (auto) 72.3 %; Platelet Count 153 K/uL (130-400); RDW Standard Deviation 44.8 fL (36.4-46.3); Red Blood Count 3.22 M/uL (4.2-5.4); White Blood Count 9.53 K/uL (4.8-10.8)
[2020-12-05 06:44] LABS: Albumin Level 2.6 gm/dl (3.4-5.0); BUN Creatinine Ratio 19.5 (10-20); Calcium 8.7 mg/dl (8.5-10.1); Creatinine Clr Calc Pharmacy 41.4 ml/min; Est GFR (African American) 61.2; Est GFR (Non-African American) 52.8; Potassium 3.9 mmol/L (3.5-5.1)
[2020-12-05 06:47] LABS: Albumin Globulin Ratio 0.7 (0.9-2); Bilirubin,Total 0.9 mg/dl (0.2-1); Globulin 3.6 gm/dl (2.5-4.0); Total Protein 6.2 gm/dl (6.4-8.2)
--- NOTE | 2020-12-05 06:58 | Hospitalist Progress Note ---
Date of Service December 05, 2020 Assessment & Plan (1) Closed left hip fracture: Melanie Martines is an 89 y/o F w/ hx of dementia, CKD, DM, hypothyroidism, HTN, HLD, and s/p pacer who presented from [facility] for L hip fracture s/p fall and is s/p ORIF on 12/03/20. closed left hip fracture - at admission, L hip ct. Comminuted intertrochanteric fracture within the proximal left femur. moderate stool burden. - 12/[address] s/p left dynamic hip screw. - s/p L ORIF 12/03. tylenol prn. roxicodone and dilaudid prn per ortho for more severe pain. headache, mild, resolved 12/03 - patient states she hit head during fall. mild tenderness at R occiput, but w/o visible bruising - defer head CT at this time since would not show certain bleeds this early after injury - reconsider if patient's mentation changes chronic kidney disease stage 3 - Cr 1.21->1.14->0.97->0.96, stable. avoid nephrotoxic agents. asymptomatic bacteruria - culture shows 3 organisms in high counts, likely contaminated sample. monitor clinically. positive nasal mrsa swab - continue contact precautions per facility protocol diabetes mellitus type II, controlled - hold Metformin. SSI. pacemaker, atrial paced per ecg - for hx of 3rd degree block. no telemetry indicated hypertension and moderate aortic stenosis - continue aspirin and metoprolol succinate - hold HCTZ and potassium chloride; normotensive 12/03 dementia - continue home rivastigmine hypothyroidism - continue levothyroxine 25 mcg daily gastroesophageal reflux disease - continue famotidine FENGI: no mIVF. DM2 diet ppx: Lovenox sq code: full dispo: med/surg, dispo 12/05 1530 to [facility] (2) CKD (chronic kidney disease) stage 3, GFR 30-59 ml/min: (3) Diabetes mellitus type II, controlled: (4) Third degree AV block: (5) Moderate aortic stenosis: (6) HTN (hypertension): (7) Hypothyroidism: (8) GERD (gastroesophageal reflux disease): (9) Dementia: (10) Asymptomatic bacteriuria: Admission and Anticipated Discharge Date Admission Date: December 02, 2020 Subjective No complaints. Denies any current pain. No headache. Not complaining of leg or hip pain at rest. Patient feels ready to return to [facility]. Per EMR, she did not require any pain meds overnight. Review of Systems Review of Systems: Constitutional: Denies fever, chills Eyes: Denies blurry vision Cardiovascular: Denies chest pain Respiratory: Denies shortness of breath Gastrointestinal: Denies abdominal pain, nausea, vomiting, constipation, diarrhea Genitourinary: Has rivera Musculoskeletal: See HPI. Neurological: Denies headache, numbness, tingling Physical Exam Physical Exam: General: A&Ox1. NAD. Cooperative. HEENT: Atraumatic, normocephalic. Pulm: CTAB anteriorly No respiratory distress. Cardiac: RRR, -mrg. Abdominal: Nontender, nondistended, soft. Musculoskeletal: Tender to palpation at L hip. 3 by 3 inch bandage. Normal motor strength at ankle. Unable to flex L leg at hip, likely limited by pain. Results & Data Results & Data ([facility]) Vital Signs (Past 12 Hours) Vital Signs Temp Pulse Pulse Resp BP Pulse Ox 12/04/20 23:24 108 H 119/77 12/04/20 22:18 37 C 99 H 18 93/65 L 95 12/04/20 20:53 105 H 103/70 Resident Activity Tracking Resident Involvement: Resident Care Provided Care Provided: Adult Hospital Medicine (1) Dementia Dementia behavioral disturbance: without behavioral disturbance Dementia type: unspecified type Qualified Code(s): F03.90 - Unspecified dementia without behavioral disturbance (2) Closed left hip fracture Encounter type: initial encounter Qualified Code(s): S72.002A - Fracture of unspecified part of neck of left femur, initial encounter for closed fracture
[2020-12-05] MEDS: ASPIRIN 81 MG ECTAB PO SCH (08:51)
[2020-12-05] MEDS: FLUTICASONE/VILANTEROL 200/25MCG 14 PUFFS/INHALER INH SCH (08:51)
[2020-12-05] MEDS: CEROVITE ADV FORMULA TAB PO SCH (08:51)
[2020-12-05] MEDS: METOPROLOL SUCC 25MG EXT REL TAB PO SCH (08:52)
[2020-12-05] MEDS: FAMOTIDINE 20 MG TAB PO SCH (08:52)
[2020-12-05] MEDS: RIVASTIGMINE TARTRATE 1.5 MG CAP PO SCH (08:53)
[2020-12-05] MEDS: INSULIN ASPART 100 UNITS/ML 3 ML PEN SC SCH ×2 (08:58→12:38)
[2020-12-05] MEDS: MICONAZOLE NITRATE POWDER 43 GM EXT PRN (08:59)
[2020-12-05] MEDS: ENOXAPARIN INJ 30 MG/0.3 ML SYR SQ SCH (12:35)
--- NOTE | 2020-12-05 17:29 | Discharge Summary ---
Date of Service December 05, 2020 Admission HPI Per Admitting Provider The patient is an 89-year-old female resident of [facility], with a past medical history including dementia, CKD, diabetes mellitus, hypothyroidism, third-degree heart block, moderate aortic stenosis, GERD, hypertension, dyslipidemia, status post pacer, who was referred to the emergency department after x-ray showed a left hip fracture following a fall. Admission Exam Per Admitting Provider The patient is awake, alert and oriented 3, well developed and well nourished, normocephalic and atraumatic, lying in bed and in no acute distress. HEENT--PERRL, EOMI, mucous membranes and oropharynx dry. Neck--supple. No JVD. No bruits. Thyroid normal, trachea midline, no adenopathy. Heart--normal S1 and S2. No murmurs, rubs or gallops. Lungs--clear bilaterally, no respiratory distress, no accessory muscle use. Abdomen--normal bowel sounds and soft. Nontender. Nondistended. Extremities--no cyanosis or clubbing. No edema. Pain over left hip with palpation or any attempted movement Dermatologic--normal skin turgor, normal color, no abnormal lymph nodes, no rash. Neurologic--cranial nerves II through XII grossly intact. Rheumatologic--limited exam Psychiatric--normal affect. Principal Diagnosis hip fracture - probable osteoporotic Discharge Exam General: A&Ox1. NAD. Cooperative. HEENT: Atraumatic, normocephalic. Pulm: CTAB anteriorly No respiratory distress. Cardiac: RRR, -mrg. Abdominal: Nontender, nondistended, soft. Musculoskeletal: Tender to palpation at L hip. 3 by 3 inch bandage. Normal motor strength at ankle. Unable to flex left leg at hip, likely limited by pain. Discharge Data Allergies Allergy/AdvReac Type Severity Reaction Status Date / Time No Known Allergies Allergy Verified 12/02/20 20:07 Consultations 12/02/20 21:03 ED Decision to Admit Stat 12/02/20 22:59 Consult Case Management - Discharge Planning Routine Consult Case Management - Discharge Planning Routine 12/03/20 00:45 Consult Orthopedic Surgery Routine 12/03/20 09:35 Consult Anesthesiology Routine 12/03/20 17:22 Consult Case Management - Discharge Planning Routine 12/04/20 14:45 Consult Case Management - Discharge Planning Routine Procedures Performed Operation Date: 12/03/20 08:10 Actual Procedures p Left Open Reduction Internal Fixation Dynamic Hip Screw(Left) - Jose Miguel Curry MD Ordered Studies 12/03/20 07:20 CT hip LT wo con Routine 12/03/20 12:58 FL fluoroscopy <1hr Routine FL hip LT 2-3V Routine Hospital Course (1) Closed left hip fracture: Melanie Martines is an 89 y/o F w/ hx of dementia, CKD, DM, hypothyroidism, HTN, HLD, and s/p pacer who presented from [facility] for L hip fracture s/p fall and is s/p ORIF on 12/03/20. Admitted 12/02/20 and discharged on 12/05/20. Please f/u w/ PCP in 1 week. Outpatient bone health workup recommended. closed left hip fracture - at admission, L hip ct. Comminuted intertrochanteric fracture within the proximal left femur. moderate stool burden. - 12/[address] s/p left dynamic hip screw. - s/p L ORIF 12/03. headache, mild, resolved 12/03 - patient states she hit head during fall. mild tenderness at R occiput, but w/o visible bruising - deferred head CT at since would not show certain bleeds this early after injury - monitored clinically and patient remained at mental baseline chronic kidney disease stage 3 - Cr 1.21->1.14->0.97->0.96, stable. avoid nephrotoxic agents. asymptomatic bacteruria - culture shows 3 organisms in high counts, likely contaminated sample. monitored clinically. diabetes mellitus type II, controlled - SSI during this admission. restart home metformin upon discharge pacemaker, atrial paced per ecg - for hx of 3rd degree block. no telemetry indicated hypertension and moderate aortic stenosis - home meds upon discharge dementia - continued home rivastigmine hypothyroidism - continued levothyroxine 25 mcg daily gastroesophageal reflux disease - continued famotidine code: full (2) CKD (chronic kidney disease) stage 3, GFR 30-59 ml/min: (3) Diabetes mellitus type II, controlled: (4) Third degree AV block: (5) Moderate aortic stenosis: (6) HTN (hypertension): (7) Hypothyroidism: (8) GERD (gastroesophageal reflux disease): (9) Dementia: (10) Asymptomatic bacteriuria: Total Time Total Time Spent Total Time Spent (In Minutes): <30 Discharge Plan Discharge Items Patient Disposition: Transfer Half-Way Fac Reason For Visit: CLOSED LEFT HIP FRACTURE Discharge Diagnosis: left hip fracture status post ORIF Activity: Per Instructions section Non-emergency contact: Primary Care Provider Call non-emergency contact if: you have any medication questions, your pain is not controlled, you have a fever, your wound has increased redness and your wound has increased drainage Follow-up/Referrals: [facility] [Primary Care Provider] - Diet: Carb Consistent or DM2 Addtl Attending Provider Instructions: Melanie Martines is an 89 y/o F w/ hx of dementia, CKD, DM, hypothyroidism, HTN, HLD, and s/p pacer who presented from [facility] for L hip fracture s/p fall and is s/p ORIF on 12/03/20. - follow up w/ PCP in 1 week - pain control w/ tylenol as needed closed left hip fracture - at admission, L hip ct. Comminuted intertrochanteric fracture within the proximal left femur. moderate stool burden. - 12/[address] s/p left dynamic hip screw. - s/p L ORIF 12/03. pain controlled: did not require pain medication during post op days headache, mild, resolved 12/03 - patient states she hit head during fall. mild tenderness at R occiput, but w/o visible bruising - deferred head CT at this time since would not show certain bleeds this early after injury - mentation stayed at baseline during this hospitalization chronic kidney disease stage 3 - Cr 1.21->1.14->0.97->0.96, stable. avoid nephrotoxic agents. asymptomatic bacteruria - culture shows 3 organisms in high counts, likely contaminated sample. asymptomatic. treatment not indicated diabetes mellitus type II, controlled - SSI while hospitalized. restart home metformin as outpatient pacemaker, atrial paced per ecg - did not require telemetry during this admission hypertension and moderate aortic stenosis - continued aspirin and metoprolol succinate - held HCTZ and potassium chloride this admission given kidney function and normotensive bps. can restart as outpatient as needed dementia - continued home rivastigmine hypothyroidism - continued levothyroxine 25 mcg daily gastroesophageal reflux disease - continued famotidine code: full Pending Studies at Discharge: No Stand-Alone Forms: [employer] Skilled Items Patient informed of condition?: Yes DNR: No Discharge Level of Care: Skilled Communicable Disease: No Discharge Prognosis: Stable Lines: Peripheral IV Urinary Catheter: Yes Medications and DC Order Prescriptions: Continued rivastigmine tartrate 1.5 mg capsule 1.5 mg PO BID RF: 0 acetaminophen [Tylenol] 325 mg Tablet 650 mg PO Q6 PRN (Reason: Fever Or Pain) RF: 0 polyethylene glycol 3350 [Miralax] 17 gram Powder In Packet 17 g PO DAILY PRN (Reason: Constipation) RF: 0 ondansetron HCl 4 mg tablet 4 mg PO Q6 PRN (Reason: Nausea) RF: 0 aspirin 81 mg Tablet,Delayed Release (Dr/Ec) 81 mg PO DAILY RF: 0 levothyroxine 25 mcg tablet 25 mcg PO DAILY RF: 0 potassium chloride 20 mEq tablet,ER particles/crystals 20 meq PO 3XWK RF: 0 famotidine 20 mg tablet 20 mg PO BID RF: 0 metoprolol succinate 25 mg tablet extended release 24 hr 12.5 mg PO BID RF: 0 metformin 500 mg Tablet Extended Release 24 Hr 500 mg PO DAILY RF: 0 Multivitamin 50 Plus Tablet 1 tab PO DAILY RF: 0 hydrochlorothiazide 12.5 mg tablet 12.5 mg PO 3XWK RF: 0 budesonide-formoterol [Symbicort] 160-4.5 mcg/actuation HFA aerosol inhaler 2 puff INHALATION Q12 RF: 0 Discontinued Afrin (oxymetazoline) 0.025 % Drops 3 drp INTRANASAL UD PRN (Reason: nose bleed) RF: 0 Discharge Orders: Discharge Order (Routine); Ordered 12/05/20 Ordered By: Gonzalo Lopez/Other Patient Handouts: Managing Type 2 Diabetes Admission Data Admit Date/Time: 12/02/20 21:56 Attending Provider: Dante Talley Admit Provider: Jamari Roque [facility]: [facility] Other Providers: [facility] ; Jamari Roque ; Mp Monte ; Je Ruiz Other Interventions: Discharge Summary Assessment (RN) Last Done: 12/05/20 11:11 Supervising Physician Co-Signing Physician Notes I personally examined the patient and verified all cabezas points of history and exam, discussed case, and agree with decision making with Dr Go. No complaints. HPI and review of systems obviously limited, but happy about leaving hospital In general she is awake and alert pleasant no distress. HEENT normocephalic atraumatic mucous membranes moist. Breathing unlabored no accessory muscle use good effort. Skin shows no rashes no pallor or icterus. Neuro shows no focal deficits. Presumed osteoporotic hip fracturenow postop day 2. Outpatient bone health w ork-up and treatment. PT/OT eval and treat, and appears stable for return to Center care for ongoing PT/OT today DVT prophylaxisLovenox Otherwise as above Resident Activity Tracking Resident Involvement: Resident Care Provided Care Provided: Adult Hospital Medicine
--- NOTE | 2020-12-05 18:00 | Billing Data ---
Date of Service December 05, 2020 Coding Level of Care Code D/C Day Management <30 mins
== END 2020-12-05 15:37 | DRG 482 ==
LOC: ED 18:42 → SUATTDRO 21:56 → 3E 21:56